=== PATIENT | male | born 1945 | race Caucasian/White ===

== ENCOUNTER → 2016-05-26 | Outpatient (CLI) | payer BC ==
[~2016-05-26] MED LIST: ATOR-22; ATV1 PO; CRS/10 PO; DYZ; FLUO20CA35; GABA-113; HYDR25TA4 PO; IBUP-1451 PO; LEVO150T22; LEVO150T9 PO; LISI-725; LISI-725 PO; ONDA4TAB10 SL; OXYC1CAP5 PO; TAMS0.4C38 PO
[2016-05-26 13:21] LABS: ALT/SGPT 48 U/L (12-78); AST/SGOT 19 U/L (15-37); BLOOD UREA NITROGEN 10 mg/dl (7-18); BUN/CREATININE RATIO 10.5 (10-20); CARBON DIOXIDE 33 mmol/L (21-32); CHLORIDE 102 mmol/L (98-107); CHOLESTEROL 173 mg/dl (0-200); CREATININE 0.99 mg/dl (0.60-1.40); GLUCOSE 86 mg/dl (70-99); POTASSIUM 3.6 mmol/L (3.5-5.1); SODIUM 142 mmol/L (136-145); TRIGLYCERIDES 229 mg/dl (0-150); VERY LOW DENSITY LIPOPROT CALC 46 mg/dl
[2016-05-26 13:29] LABS: ALB/GLOB RATIO 1.1 (0.9-2); ALKALINE PHOSPHATASE 69 U/L (45-117); CHOLESTEROL/HDL RATIO 3.5; HDL CHOLESTEROL 50 mg/dl; RHEUMATOID FACTOR < 10.0 U/mL (0-15)
[2016-05-26 13:45] LABS: CALCIUM 10.1 mg/dl (8.5-10.1)
[2016-05-26 14:30] LABS: BASO % 0.8 %; BASO ABS # 0.05 K/uL (0-0.2); COMPLETE YES; HEMATOCRIT 48.4 % (42-52); IG% 0.3 %; LYMPH ABS # 2.04 K/uL (1.2-3.4); MEAN CELL VOLUME 86.9 fL (80-100); MEAN CORPUSCULAR HGB CONC 34.5 g/dl (32-36); NEUT % 54.9 %; PLATELET COUNT 236 K/uL (130-400); RED BLOOD COUNT 5.57 M/uL (4.7-6.1); WHITE BLOOD COUNT 6.19 K/uL (4.8-10.8)
== END | disposition home or self-care (01) ==
LOC: C.LABSPEC 12:32
PROVIDERS: ATTEND Internal Medicine
DX: I10 Essential (primary) hypertension (principal); E78.5 Hyperlipidemia, unspecified; E03.9 Hypothyroidism, unspecified; M79.1 Myalgia; M25.50 Pain in unspecified joint

== ENCOUNTER → 2016-06-02 | Outpatient (CLI) | payer BC ==
[2016-06-04 18:07] LABS: ANTI-SS-A <1.0 NEG AI (<1.0 NEG); ANTI-SS-B <1.0 NEG AI (<1.0 NEG); Sm Antibody <1.0 NEG AI (<1.0 NEG)
== END | disposition home or self-care (01) ==
LOC: C.LABSPEC 12:23
PROVIDERS: ATTEND Internal Medicine
DX: M25.50 Pain in unspecified joint (principal); R76.0 Raised antibody titer

== ENCOUNTER → 2016-07-08 | Day surgery (SDC) | payer BC ==
[2016-07-01 14:32] VITALS: BMI 28.0
[~2016-07-08] VITALS: Ht 185.4 cm; Wt 97.7 kg
[~2016-07-08] MED LIST changes: -ATOR-22; +ATROPINE SULFATE 0.1 MG/ML 5ML SYR IV PRN; -ATV1 PO; -DYZ; +EpHEDrine SULFATE INJ 50 MG/ML AMP IV PRN; -FLUO20CA35; -GABA-113; -LEVO150T22; +LIDOCAINE HCL 2% 2 ML VIAL (20MG/ML) ONE; -LISI-725; +PROPOFOL IV EMULSION 10 MG/ML 20 ML VIAL IV ONE; +SODIUM CHLORIDE 0.9% 500ML 500 ML IV ONE
[2016-07-08 14:02] VITALS: Ht 185.4 cm; Wt 97.7 kg
--- NOTE | 2016-07-08 15:24 | Endo History and Physical ---
History & Physical Date of Service: July 08, 2016. Chief Complaint: hx polyps Referring Physician: Dr. Huerta History of Present Illness hx polyps Past Surgical History Hx Cardiac Surgery: No Hx Internal Defibrillator: No Hx Pacemaker: No Hx Abdominal Surgery: Yes (REINALDO) Hx of Implantable Prosthesis: No Hx Post-Op Nausea and Vomiting: No Hx Cancer Surgery: No Hx Thoracic Surgery: No Hx Orthopedic: Yes (LEFT ANKLE SURGERY, LEFT KNEE PATELLA REPAIR) Hx Urinary Tract Surgery: No Family History None Social History Smoking Status: Former Smoker Hx Substance Use: No Hx Alcohol Use: Yes (12 BOURB[employer] DRINKS WEEKLY) Allergies Coded Allergies: No Known Allergies (Verified , 07/08/16) Current Medications Reported Home Medications Medications Dose Route/Sig Max Daily Dose Days Date Category Crestor (Rosuvastatin Calcium) 10 Mg Tab 10 Mg PO QAM 07/01/16 Reported Hctz (Hydrochlorothiazide) 25 Mg Tab 0.5 Tab PO QAM 07/01/16 Reported Zestril (Lisinopril) 20 Mg Tab 10 Mg PO QAM 07/01/16 Reported Levothyroxine Sodium 150 Mcg Tab 1 Tab PO QAM 90 07/01/16 Reported Vital Signs Weight (Kilograms): 97.73 Height (Feet): 6 Height (Inches): 1 Date Time Temp Pulse Resp B/P Pulse Ox O2 Delivery O2 Flow Rate FiO2 07/08/16 14:08 37.3 98 20 168/107 97 Room Air Physical Exam AAOx3 Nl s1s2 Lungs CTA Abd soft NT/ND + BS - CCE Assessment and Plan colonoscopy
--- NOTE | 2016-07-08 16:23 | Discharge Instructions ---
Endoscopy Patient Instructions Date / Procedure(s) Performed July 08, 2016. Colonoscopy Allergy Information Coded Allergies: No Known Allergies (Verified , 07/08/16) Discharge Date / Findings July 08, 2016. poluyps removed. One by EMR Medication Instructions Restart Stopped Medication(s): Reported Home Medications Medications Dose Route/Sig Max Daily Dose Days Date Category Crestor (Rosuvastatin Calcium) 10 Mg Tab 10 Mg PO QAM 07/01/16 Reported Hctz (Hydrochlorothiazide) 25 Mg Tab 0.5 Tab PO QAM 07/01/16 Reported Zestril (Lisinopril) 20 Mg Tab 10 Mg PO QAM 07/01/16 Reported Levothyroxine Sodium 150 Mcg Tab 1 Tab PO QAM 90 07/01/16 Reported Reported Home Medications Medications Dose Route/Sig Max Daily Dose Days Date Category Crestor (Rosuvastatin Calcium) 10 Mg Tab 10 Mg PO QAM 07/01/16 Reported Hctz (Hydrochlorothiazide) 25 Mg Tab 0.5 Tab PO QAM 07/01/16 Reported Zestril (Lisinopril) 20 Mg Tab 10 Mg PO QAM 07/01/16 Reported Levothyroxine Sodium 150 Mcg Tab 1 Tab PO QAM 90 07/01/16 Reported Provider Instructions Activity Restrictions - No exercising or heavy lifting for 24 hours. - Do not drink alcohol the day of the procedure. - Do not drive a car or operate machinery until the day after the procedure. - Do not make any important decisions or sign important papers in 24 hours after the procedure. Following Day: - Return to full activity which may include returning to work/school. Diet Start your diet with liquids and light foods (jello, soup, juice, toast). Then eat your usual diet if not nauseated. Treatment For Common After Affects For mild abdominal pain, bloating, or excessive gas: - Rest - Eat lightly - Lie on right side Follow-Up Information Follow-up with Dr. Huerta as scheduled Anesthesia Information What You Should Know You have had a procedure that required some medicine to reduce anxiety and discomfort. This treatment is called moderate sedation. After receiving the treatment, you may be sleepy, but you will be able to breathe on your own. The effects of the treatment may last for several hours. Follow these instructions along with Activity/Diet recommendations noted above: * Do NOT do anything where dizziness or clumsiness would be dangerous. * Rest quietly at home today, then you can be up and about tomorrow. * Have a responsible person stay with you the rest of today. * You may have had an I.V. today. If so, you may take the dressing off later today. Recommendations Call your doctor if: * Trouble breathing * Continuous vomiting for more than 24 hours * Temperature above 101 degrees * Severe abdominal pain or bloating * Pain not relieved by pain medicine ordered * There is increased drainage or redness from any incision * A large amount of rectal bleeding greater than 2-3 tablespoons. (If you had a polyp/s removed or have hemorrhoids, a small amount of blood - from the rectum is to be expected.) * You have any unanswered questions or concerns. IN THE EVENT OF A SERIOUS EMERGENCY, GO TO THE NEAREST EMERGENCY ROOM Your discharge instructions were prepared by provider Shon Marsh. Patient Instructions Signature Page Jose Palma Patient (or Guardian) Signature/Date: I have read and understand the instructions given to me by my caregivers. Caregiver/RN/Doctor Signature/Date: The above-named patient and/or guardian has received patient instructions on this date. + Original Patient Signature Page (only) stays with chart. Please make copy for patient.
--- NOTE | 2016-07-08 16:42 | Anesthesiology Progress Note ---
Anesthesia Post Op Note Date & Time July 08, 2016 at 16:42 Vital Signs Pain Intensity: 0 Vital Signs Past 12 Hours Date Time Temp Pulse Resp B/P Pulse Ox O2 Delivery O2 Flow Rate FiO2 07/08/16 16:35 85 20 148/98 95 Room Air 07/08/16 16:20 85 20 133/76 96 Room Air 07/08/16 14:08 37.3 98 20 168/107 97 Room Air Notes Mental Status: alert / awake / arousable, participated in evaluation Pt Amnestic to Procedure: Yes Nausea / Vomiting: adequately controlled Pain: adequately controlled Airway Patency, RR, SpO2: stable & adequate BP & HR: stable & adequate Hydration State: stable & adequate Anesthetic Complications: no major complications apparent
[2016-07-08 16:50] VITALS: BP 158/99; PULSE 83; O2SAT 95
--- NOTE | 2016-07-08 17:14 | GI REPORT ---
Procedure Date: 07/08/2016 3:22 PM Procedure: Colonoscopy Indications: High risk colon cancer surveillance: Personal history of colonic polyps Medicines: Propofol per Anesthesia Complications: No immediate complications. Estimated blood loss: None. Estimated Blood Loss: Estimated blood loss was minimal. Procedure: Pre-Anesthesia Assessment: - Prior to the procedure, a History and Physical was performed, and patient medications and allergies were reviewed. The patient's tolerance of previous anesthesia was also reviewed. The risks and benefits of the procedure and the sedation options and risks were discussed with the patient. All questions were answered, and informed consent was obtained. Prior Anticoagulants: The patient has taken no previous anticoagulant or antiplatelet agents. ASA Grade Assessment: III - A patient with severe systemic disease. After reviewing the risks and benefits, the patient was deemed in satisfactory condition to undergo the procedure. After I obtained informed consent, the scope was passed under direct vision. Throughout the procedure, the patient's blood pressure, pulse, and oxygen saturations were monitored continuously. The Scope was introduced through the anus and advanced to the terminal ileum, with identification of the appendiceal orifice and IC valve. The colonoscopy was performed without difficulty. The patient tolerated the procedure well. The quality of the bowel preparation was good. Findings: The perianal and digital rectal examinations were normal. Pertinent negatives include normal sphincter tone, no palpable rectal lesions and no anal lesion or abnormality was detected. A 20 mm polyp was found in the proximal ascending colon. The polyp was sessile. Area was successfully injected with 7 mL saline for a lift polypectomy by EMR technique. The polyp was removed with a hot snare. Resection and retrieval were complete. To prevent bleeding after mucosal resection, four hemostatic clips were successfully placed (MR conditional). There was no bleeding during, and at the end, of the procedure. A 10 mm polyp was found in the mid ascending colon. The polyp was sessile. The polyp was removed with a hot snare. Resection and retrieval were complete. Estimated blood loss was minimal. Verification of patient identification for the specimen was done by the physician and machines technician using the patient's name and medical record number. The exam was otherwise without abnormality. The terminal ileum appeared normal. The retroflexed view of the distal rectum and anal verge was normal and showed no anal or rectal abnormalities. A few small-mouthed diverticula were found in the sigmoid colon. The terminal ileum appeared normal. Impression: - One 20 mm polyp in the proximal ascending colon, removed with a hot snare. Resected and retrieved. Injected. Clips (MR conditional) were placed. - One 10 mm polyp in the mid ascending colon, removed with a hot snare. Resected and retrieved. - The examination was otherwise normal. - The examined portion of the ileum was normal. - The distal rectum and anal verge are normal on retroflexion view. - Diverticulosis in the sigmoid colon. Recommendation: - Discharge patient to home (ambulatory). - Patient has a contact number available for emergencies. The signs and symptoms of potential delayed complications were discussed with the patient. Return to normal activities tomorrow. Written discharge instructions were provided to the patient. - Full liquid diet today. - Continue present medications. - Await pathology results. - Repeat colonoscopy in 6 months per protocol. - Return to referring physician as previously scheduled. MD Shon Garcia MD 07/08/2016 5:14:05 PM This report has been signed electronically. Note Initiated On: 07/08/2016 3:22 PM I attest to the content of the Intraoperative Record and orders documented therein, exceptions below
== END | disposition home or self-care (01) ==
LOC: C.GI 13:28
PROVIDERS: ATTEND Internal Medicine Gastroenterology
DX: Z12.11 Encounter for screening for malignant neoplasm of colon (principal); D12.2 Benign neoplasm of ascending colon; K57.30 Diverticulosis of large intestine without perforation or abscess without bleeding; Z86.010 Personal history of colon polyps; Z87.891 Personal history of nicotine dependence

== ENCOUNTER → 2016-11-26 | Outpatient (CLI) | payer BC ==
[~2016-11-26] MED LIST changes: -ATROPINE SULFATE 0.1 MG/ML 5ML SYR IV PRN; -EpHEDrine SULFATE INJ 50 MG/ML AMP IV PRN; -IBUP-1451 PO; -LIDOCAINE HCL 2% 2 ML VIAL (20MG/ML) ONE; -ONDA4TAB10 SL; -OXYC1CAP5 PO; -PROPOFOL IV EMULSION 10 MG/ML 20 ML VIAL IV ONE; -SODIUM CHLORIDE 0.9% 500ML 500 ML IV ONE; -TAMS0.4C38 PO
[2016-11-26 13:34] LABS: ALT/SGPT 36 U/L (12-78); AST/SGOT 16 U/L (15-37); BLOOD UREA NITROGEN 13 mg/dl (7-18); BUN/CREATININE RATIO 13.7 (10-20); CARBON DIOXIDE 30 mmol/L (21-32); CHLORIDE 102 mmol/L (98-107); CREATININE 0.97 mg/dl (0.60-1.40); GLUCOSE 94 mg/dl (70-99); POTASSIUM 3.5 mmol/L (3.5-5.1); SODIUM 141 mmol/L (136-145)
[2016-11-26 13:43] LABS: ESTIMATED AVERAGE GLUCOSE 114 mg/dl; HA1C FLAG Normal (Normal)
[2016-11-26 13:45] LABS: ALKALINE PHOSPHATASE 66 U/L (45-117); CHOLESTEROL 270 mg/dl (0-200); CHOLESTEROL/HDL RATIO 5.9; HDL CHOLESTEROL 46 mg/dl; TRIGLYCERIDES 305 mg/dl (0-150); VERY LOW DENSITY LIPOPROT CALC 61 mg/dl
== END | disposition home or self-care (01) ==
LOC: C.LABSPEC 12:34
PROVIDERS: ATTEND Internal Medicine
DX: I10 Essential (primary) hypertension (principal); E78.5 Hyperlipidemia, unspecified; R73.9 Hyperglycemia, unspecified; E03.9 Hypothyroidism, unspecified

== ENCOUNTER 2017-01-11 04:52 | Emergency (ER) | payer BC ==
[~2017-01-11] VITALS: Ht 193 cm; Wt 93.0 kg
[2017-01-11 05:01] VITALS: TEMP 36.3; Ht 193 cm; Wt 93.0 kg
[2017-01-11] MEDS ORDERED: SODIUM CHLORIDE 0.9% 1000ML 1,000 ML IV STA (05:06)
[2017-01-11] MEDS ORDERED: FENTANYL CITRATE INJ 50 MCG/1 ML 2 ML VIAL IV STA (05:10)
[2017-01-11] MEDS ORDERED: ONDANSETRON INJ 2 MG/ML 2 ML VIAL IV STA (05:10)
[2017-01-11] MEDS ORDERED: OPTIRAY 320 IV PRN (05:30)
[2017-01-11 05:33] LABS: ISTAT HEMOGLOBIN 17.7 g/dl (14.0-18.0); ISTAT IONIZED CALCIUM 1.14 mmol/l (1.12-1.32)
--- NOTE | 2017-01-11 05:34 | EMERGENCY ROOM VISIT NOTE ---
History Report prepared by Larry: Anselmo Soto Under the Supervision of: Dr. Nikolas Sanches M.D. First contact with patient: 05:04 Chief Complaint: ABDOMINAL PAIN Stated Complaint: ABDOMINAL PAIN History of Present Illness The patient is a 71 year old male who presents to the Emergency Room with complaints of constant right lower quadrant pain starting prior to arrival. He currently rates his discomfort as an 8/10 in severity. The patient states that he was asleep when he was woken up from this abdominal pain. He is nauseous, light headed, and he has the chills. The patient denies any testicular pain, fevers, cough, congestion, and vomiting. He states that he has never had any abdominal surgeries in the past, and he does not have a history of kidney stones. The patient has a history of COPD. The patient notes that he had a bowel movement last night before going to bed, and he was feeling well yesterday and had normal foods other than a pickled egg. He states that the pickled eggs were in a jar that originally had meat in it. Source of History: patient Onset: prior to arrival Position: abdomen (RLQ) Symptom Intensity: 8/10 Timing: constant Associated Symptoms: + chills, + nausea, No fevers, No cough, No vomiting Review of Systems See HPI for pertinent positives and negatives. A total of ten systems were reviewed and were otherwise negative. Past Medical & Surgical Medical Problems: (1) COPD (chronic obstructive pulmonary disease) Social History Smoking Status: Never Smoker Marital Status: Housing Status: lives with family Occupation Status: retired Current/Historical Medications Scheduled Hydrochlorothiazide (Hctz), 12.5 MG PO QAM Levothyroxine Sodium (Levothyroxine Sodium), 150 MCG PO QAM Lisinopril (Zestril), 10 MG PO QAM Ondasetron Odt (Zofran Odt), 4 MG SL Q6H Tamsulosin Hcl (Flomax), 0.4 MG PO DAILY Scheduled PRN Ibuprofen Tab (Motrin), 800 MG PO Q8H PRN for Pain Oxycodone Hcl (Oxycodone Hcl), 1 CAP PO QID PRN for Pain Allergies Coded Allergies: No Known Allergies (Verified , 01/11/17) Physical Exam Vital Signs Date Time Temp Pulse Resp B/P (MAP) Pulse Ox O2 Delivery O2 Flow Rate FiO2 01/11/17 07:55 81 18 171/104 94 Room Air 01/11/17 06:44 85 20 190/100 95 Room Air 01/11/17 06:03 80 18 168/93 92 Room Air 01/11/17 05:46 80 20 167/98 92 Room Air 01/11/17 05:30 74 20 184/107 96 Room Air 01/11/17 05:09 82 01/11/17 05:01 36.3 75 22 210/107 99 Room Air Physical Exam GENERAL: Awake, alert, in mild distress HENT: Dry cracked mucous membranes. Oropharynx otherwise unremarkable. Normocephalic, atraumatic. EYES: Normal conjunctiva. Sclera non-icteric. NECK: Supple. No nuchal rigidity. FROM. No JVD. RESPIRATORY: Clear to auscultation. CARDIAC: Regular rate, normal rhythm. Extremities warm and well perfused. Pulses equal. ABDOMEN: Mild RLQ tenderness. No peritoneal signs. Mildly distended but soft. No rebound or guarding. No masses. RECTAL: Deferred. MUSCULOSKELETAL: Chest examination reveals no tenderness. The back is symmetrical on inspection without obvious abnormality. There is no CVA tenderness to palpation. No joint edema. LOWER EXTREMITIES: Calves are equal size bilaterally and non-tender. No edema. No discoloration. NEURO: Normal sensorium. No sensory or motor deficits noted. SKIN: No rash or jaundice noted. Medical Decision & Procedures ER Provider Diagnostic Interpretation: STATRAD: Preliminary Findings Only See Final Report For Complete Findings CT ABDOMEN & PELVIS With Contrast: Status post cholecystectomy. Liver, spleen, pancreas, and adrenal glands are unremarkable. There is an obstructing 4.3 mm right UVJ stone causing mild upstream hydroureteronephrosis. There are additional bilateral nonobstructing stones. There are bilateral renal cysts. Normal appendix. No bowel obstruction. Scattered colonic diverticula without acute diverticulitis. Urinary bladder and prostate are unremarkable. No acute osseous findings. Radiologist: Elizabeth Burnette M.D. Laboratory Results 01/11/17 05:15 Red Blood Count 5.85, Mean Corpuscular Volume 88.5, Mean Corpuscular Hemoglobin 30.4, Mean Corpuscular Hemoglobin Concent 34.4, Mean Platelet Volume 11.2, Neutrophils (%) (Auto) 37.2, Lymphocytes (%) (Auto) 49.6, Monocytes (%) (Auto) 10.1, Eosinophils (%) (Auto) 2.1, Basophils (%) (Auto) 0.7, Neutrophils # (Auto ) 2.64, Lymphocytes # (Auto) 3.52, Monocytes # (Auto) 0.72, Eosinophils # (Auto ) 0.15, Basophils # (Auto) 0.05 01/11/17 05:15 Test 01/11/17 05:15 01/11/17 05:21 01/11/17 06:37 01/11/17 06:50 White Blood Count 7.10 K/uL (4.8-10.8) Red Blood Count 5.85 M/uL (4.7-6.1) Hemoglobin 17.8 g/dL (14.0-18.0) Hematocrit 51.8 % (42-52) Mean Corpuscular Volume 88.5 fL (80-100) Mean Corpuscular Hemoglobin 30.4 pg (25-34) Mean Corpuscular Hemoglobin Concent 34.4 g/dl (32-36) Platelet Count 246 K/uL (130-400) Mean Platelet Volume 11.2 fL (7.4-10.4) Neutrophils (%) (Auto) 37.2 % Lymphocytes (%) (Auto) 49.6 % Monocytes (%) (Auto) 10.1 % Eosinophils (%) (Auto) 2.1 % Basophils (%) (Auto) 0.7 % Neutrophils # (Auto) 2.64 K/uL (1.4-6.5) Lymphocytes # (Auto) 3.52 K/uL (1.2-3.4) Monocytes # (Auto) 0.72 K/uL (0.11-0.59) Eosinophils # (Auto) 0.15 K/uL (0-0.5) Basophils # (Auto) 0.05 K/uL (0-0.2) RDW Standard Deviation 43.2 fL (36.4-46.3) RDW Coefficient of Variation 13.3 % (11.5-14.5) Immature Granulocyte % (Auto) 0.3 % Immature Granulocyte # (Auto) 0.02 K/uL (0.00-0.02) Est Creatinine Clear Calc Drug Dose 76.6 ml/min Estimated GFR () 80.0 Estimated GFR (Non- 69.0 BUN/Creatinine Ratio 16.0 (10-20) Calcium Level 8.9 mg/dl (8.5-10.1) Total Bilirubin 0.7 mg/dl (0.2-1) Direct Bilirubin 0.1 mg/dl (0-0.2) Aspartate Amino Transf (AST/SGOT) 19 U/L (15-37) Alanine Aminotransferase (ALT/SGPT) 40 U/L (12-78) Alkaline Phosphatase 68 U/L (45-117) Troponin I < 0.015 ng/ml (0-0.045) Total Protein 8.1 gm/dl (6.4-8.2) Albumin 4.0 gm/dl (3.4-5.0) Lipase 182 U/L (73-393) Bedside Hemoglobin 17.7 g/dl (14.0-18.0) Bedside Hematocrit 52 % (42-52) Bedside Sodium 143 mEq/L (135-144) Bedside Potassium 3.1 mEq/L (3.3-5.0) Bedside Chloride 104 mEq/L (101-112) Bedside Total CO2 25 mEq/l (24-31) Anion Gap 18.0 mmol/L (16-25) Bedside Blood Urea Nitrogen 18 mg/dl (7-18) Bedside Creatinine 1.0 mg/dl (0.6-1.3) Bedside Glucose (other) 139 mg/dl (70-99) Bedside Ionized Calcium (Jenelle) 1.14 mmol/l (1.12-1.32) Lactic Acid Level 1.7 mmol/L (0.4-2.0) Urine Color ROMAINE Urine Appearance CLOUDY (CLEAR) Urine pH 5.0 (4.5-7.5) Urine Specific Godley > 1.045 (1.000-1.030) Urine Protein TRACE (NEG) Urine Glucose (UA) NEG (NEG) Urine Ketones NEG (NEG) Urine Occult Blood 3+ (NEG) Urine Nitrite NEG (NEG) Urine Bilirubin NEG (NEG) Urine Urobilinogen NEG (NEG) Urine Leukocyte Esterase TRACE (NEG) Urine WBC (Auto) 1-5 /hpf (0-5) Urine RBC (Auto) >30 /hpf (0-4) Urine Hyaline Casts (Auto) 1-5 /lpf (0-5) Urine Epithelial Cells (Auto) 5-10 /lpf (0-5) Urine Bacteria (Auto) NEG (NEG) Laboratory results reviewed by me Medications Administered Medications (Trade) Dose Ordered Sig/Valerie Route Start Time Stop Time Status Last Admin Dose Admin Sodium Chloride 1,000 ml @ 999 mls/hr Q1H1M STAT IV 01/11/17 05:06 01/11/17 06:06 DC 01/11/17 05:25 999 MLS/HR Fentanyl Citrate (Fentanyl Inj) 50 mcg NOW STAT IV 01/11/17 05:10 01/11/17 05:12 DC 01/11/17 05:26 50 MCG Ondansetron HCl (Zofran Inj) 4 mg NOW STAT IV 01/11/17 05:10 01/11/17 05:12 DC 01/11/17 05:26 4 MG ECG Indication: abdominal pain Rate (beats per minute): 76 Rhythm: normal sinus Findings: no acute ischemic change, other (normal axis) ED Course 0504: The patient was evaluated in room B5. A complete history and physical exam was performed. Medical Decision I reviewed the patient's past medical history, medications, and the nursing notes as described above. Differential diagnoses include: appendicitis, bowel obstruction, colitis, gastroenteritis, gastritis, biliary etiology, AAA The patient is a 71-year-old gentleman who presents emergency department with acute onset right lower quadrant pain and nausea that woke him from sleep per history of present illness. The patient is mild distress, afebrile with stable vital signs. His mild abdominal bloating but abdomen is soft. He has mild right lower quadrant tenderness but no peritoneal signs. CT shows a 4.3 mm right UVJ stone with mild hydroureter nephrosis, likely explanation for the patient's symptoms. WBC, Cr, Lactate wnl. UA negative for infection. Patient feeling improved with resolved symptoms after IVF and analgesia. Findings and plan for follow-up reviewed with patient. Patient agreeable and d/c'd per discharge instructions. Medication Reconcilliation Current Medication List: was personally reviewed by me Blood Pressure Screening Patient's blood pressure: Elevated blood pressure Impression Primary Impression: Ureteral stone with hydronephrosis Scribe Attestation The scribe's documentation has been prepared under my direction and personally reviewed by me in its entirety. I confirm that the note above accurately reflects all work, treatment, procedures, and medical decision making performed by me. Departure Information Prescriptions Tamsulosin Hcl (FLOMAX) 0.4 Mg Cap 0.4 MG PO DAILY, #10 CAP Prov: Nikloas Sanches M.D. 01/11/17 Ondasetron Odt (ZOFRAN ODT) 4 Mg Tab 4 MG SL Q6H for Nausea, #6 TAB Prov: Nikolas Sanches M.D. 01/11/17 Oxycodone Hcl (OXYCODONE HCL) 5 Mg Cap 1 CAP PO QID Y for Pain, #5 CAP Prov: Nikolas Sanches M.D. 01/11/17 Ibuprofen Tab (MOTRIN) 800 Mg Tab 800 MG PO Q8H Y for Pain, #21 TAB Prov: Nikolas Sanches M.D. 01/11/17 Referrals Olegario Ibarra M.D. (PCP) Kalin Overton M.D. Patient Instructions Kidney Stones, My [facility] Additional Instructions Please follow up within the next week with your primary care physician and urology if symptoms continue for re-evaluation as well as to discuss the incidental findings on your CT scan (copied below). You were found to have an obstructing kidney stone that is 4.3mm, which has a good likelihood to pass on its own. Otherwise, your exam, EKG, CT scan, and lab results did not show signs of an emergent condition at this time. Ibuprofen for pain as needed. Oxycodone for breakthrough pain as needed. Zofran as needed for nausea. Flomax daily to help promote kidney stone passage. Return to the emergency department for worsening symptoms as described in the accompanying instructions. ABDOMEN AND PELVIS CT WITH IV CONTRAST CT DOSE: 652.34 mGy.cm HISTORY: Right lower quadrant abdominal pain. TECHNIQUE: Multiaxial CT images of the abdomen and pelvis were performed following the use of intravenous contrast. A dose lowering technique was utilized adhering to the principles of ALARA. COMPARISON STUDY: None. FINDINGS: A 4 mm subpleural nodule within the lingula likely represents atelectasis/scarring. Moderate emphysema. Calcified granuloma within the left lower lobe. There is 1.3 cm nodule within the left lower lobe. This may contain macroscopic fat. Poststernotomy changes. Cholecystectomy. The liver, spleen, adrenal glands, and pancreas are unremarkable. A few small bilateral renal hypodense lesions. Dominant exophytic lesion within the right kidney measures 1.6 cm and likely represents a cyst. Remaining lesions are subcentimeter in size and too small to characterize. Bilateral nephrolithiasis. Mild right hydronephrosis secondary to an obstructing stone at the right ureterovesical junction. This measures 4 mm. Bladder is not well-distended but appears unremarkable. Colonic diverticulosis. No bowel wall thickening or obstruction. Normal appendix. IMPRESSION: 1. A 4 mm obstructing stone within the right ureterovesical junction resulting and mild right hydronephrosis. 2. Bilateral nephrolithiasis. 3. Colonic diverticulosis. 4. No bowel wall thickening or obstruction. 5. Normal appendix. 6. A 13 mm round nodule within the left lower lobe. This appears to contain fat and likely represents a hamartoma. Recommend dedicated [address] follow-up to ensure stability.
[2017-01-11] MEDS ORDERED: KETOROLAC TROMETHAMINE 30 MG/ML VIAL IV STA (06:40)
[2017-01-11 06:42] LABS: BASO % 0.7 %; BASO ABS # 0.05 K/uL (0-0.2); COMPLETE YES; EOS % 2.1 %; HEMATOCRIT 51.8 % (42-52); IG% 0.3 %; LYMPH % 49.6 %; LYMPH ABS # 3.52 K/uL (1.2-3.4); MEAN CELL VOLUME 88.5 fL (80-100); MEAN CORPUSCULAR HEMOGLOBIN 30.4 pg (25-34); MEAN CORPUSCULAR HGB CONC 34.4 g/dl (32-36); MEAN PLATELET VOLUME 11.2 fL (7.4-10.4); MONO % 10.1 %; NEUT % 37.2 %; PLATELET COUNT 246 K/uL (130-400); RED BLOOD COUNT 5.85 M/uL (4.7-6.1)
[2017-01-11 07:01] LABS: ALT/SGPT 40 U/L (12-78); AST/SGOT 19 U/L (15-37); BLOOD UREA NITROGEN 17 mg/dl (7-18); CALCIUM 8.9 mg/dl (8.5-10.1); CARBON DIOXIDE 27 mmol/L (21-32); CHLORIDE 104 mmol/L (98-107); CREATININE 1.07 mg/dl (0.60-1.40); GLUCOSE 134 mg/dl (70-99); SODIUM 139 mmol/L (136-145)
[2017-01-11 07:06] LABS: ALKALINE PHOSPHATASE 68 U/L (45-117)
[2017-01-11 07:12] LABS: URINE APPEARANCE CLOUDY (CLEAR); URINE BILIRUBIN NEG (NEG); URINE NITRITE NEG (NEG); URINE SPECIFIC GRAVITY > 1.045 (1.000-1.030); UROBILINOGEN NEG (NEG); ZZUR CULT IF INDIC CLEAN CATCH NO
[2017-01-11 07:13] LABS: MANUAL MICROSCOPIC REQUIRED? NO; REVIEW REQ? NO; URINE COLOR AMBER
--- NOTE | 2017-01-11 07:22 | DIAGNOSTIC IMAGING REPORT ---
ABDOMEN AND PELVIS CT WITH IV CONTRAST CT DOSE: 652.34 mGy.cm HISTORY: Right lower quadrant abdominal pain. TECHNIQUE: Multiaxial CT images of the abdomen and pelvis were performed following the use of intravenous contrast. A dose lowering technique was utilized adhering to the principles of ALARA. COMPARISON STUDY: None. FINDINGS: A 4 mm subpleural nodule within the lingula likely represents atelectasis/scarring. Moderate emphysema. Calcified granuloma within the left lower lobe. There is 1.3 cm nodule within the left lower lobe. This may contain macroscopic fat. Poststernotomy changes. Cholecystectomy. The liver, spleen, adrenal glands, and pancreas are unremarkable. A few small bilateral renal hypodense lesions. Dominant exophytic lesion within the right kidney measures 1.6 cm and likely represents a cyst. Remaining lesions are subcentimeter in size and too small to characterize. Bilateral nephrolithiasis. Mild right hydronephrosis secondary to an obstructing stone at the right ureterovesical junction. This measures 4 mm. Bladder is not well-distended but appears unremarkable. Colonic diverticulosis. No bowel wall thickening or obstruction. Normal appendix. IMPRESSION: 1. A 4 mm obstructing stone within the right ureterovesical junction resulting and mild right hydronephrosis. 2. Bilateral nephrolithiasis. 3. Colonic diverticulosis. 4. No bowel wall thickening or obstruction. 5. Normal appendix. 6. A 13 mm round nodule within the left lower lobe. This appears to contain fat and likely represents a hamartoma. Recommend dedicated [address] follow-up to ensure stability. Electronically signed by: Kain Ferreira M.D. 01/11/2017 7:21 AM Dictated Date/Time: 01/11/2017 7:14 AM
[2017-01-11] MEDS ORDERED: TAMS0.4C38 PO (07:46)
[2017-01-11] MEDS ORDERED: ONDA4TAB10 SL (07:46)
[2017-01-11] MEDS ORDERED: OXYC1CAP5 PO (07:46)
[2017-01-11] MEDS ORDERED: IBUP-1451 PO (07:46)
[2017-01-11 07:55] VITALS: BP 171/104; PULSE 81; O2SAT 94
== END 2017-01-11 08:13 | disposition home or self-care (01) ==
LOC: C.EDB 04:53
DX: N20.1 Calculus of ureter (principal); N13.30 Unspecified hydronephrosis; J44.9 Chronic obstructive pulmonary disease, unspecified; R42 Dizziness and giddiness

== ENCOUNTER → 2017-06-01 | Outpatient (CLI) | payer BC ==
[~2017-06-01] MED LIST changes: -CRS/10 PO; +IBUP-1451 PO; +ONDA4TAB10 SL; +OXYC1CAP5 PO
--- NOTE | 2017-06-01 10:11 | DIAGNOSTIC IMAGING REPORT ---
ABDOMINAL ULTRASOUND COMPLETE HISTORY: dyspepsia.. COMPARISON: Abdomen and pelvis CT 01/11/2017. FINDINGS: Pancreas: Obscured by overlying bowel gas. Liver: Unremarkable. Gallbladder: The gallbladder is surgically absent. CBD: 1 cm. Kidneys: No hydronephrosis. There are few small stones and a few small cysts with the largest in the right lower pole measuring 2.1 cm. Spleen: Normal in size. Aorta: Only seen distally but is normal in caliber. IVC: Patent. IMPRESSION: 1. Bilateral nephrolithiasis. No hydronephrosis. 2. Cholecystectomy. This likely accounts for the common bile duct dilatation of 1 cm. Electronically signed by: Kain Ferreira M.D. 06/01/2017 10:10 AM Dictated Date/Time: 06/01/2017 10:06 AM
== END | disposition home or self-care (01) ==
LOC: C.ULTRBC 08:39
PROVIDERS: ATTEND Internal Medicine Gastroenterology
DX: R10.13 Epigastric pain (principal); N20.0 Calculus of kidney; Z90.49 Acquired absence of other specified parts of digestive tract

== ENCOUNTER → 2017-06-20 | Day surgery (SDC) | payer BC ==
[2017-06-08 14:09] VITALS: BMI 29.0
[~2017-06-20] VITALS: Ht 182.9 cm; Wt 98.2 kg
[~2017-06-20] MED LIST changes: -IBUP-1451 PO; +LIDOCAINE HCL 2% 2 ML VIAL (20MG/ML) ONE; -ONDA4TAB10 SL; -OXYC1CAP5 PO; +PROPOFOL IV EMULSION 10 MG/ML 20 ML VIAL ONE
[2017-06-20 14:02] VITALS: Ht 182.9 cm; Wt 98.2 kg
--- NOTE | 2017-06-20 14:28 | Endo History and Physical ---
History & Physical Date of Service: June 20, 2017. Chief Complaint: HISTORY OF POLYPS Referring Physician: DR. AUDREY LOBATO History of Present Illness For colonoscopy Past Surgical History Hx Cardiac Surgery: No Hx Internal Defibrillator: No Hx Pacemaker: No Hx Abdominal Surgery: Yes (REINALDO, APPY) Hx of Implantable Prosthesis: No Hx Post-Op Nausea and Vomiting: No Hx Cancer Surgery: No Hx Thoracic Surgery: No Hx Orthopedic: Yes (LEFT ANKLE SURGERY, LEFT KNEE PATELLA REPAIR) Hx Urinary Tract Surgery: No Family History None Social History Smoking Status: Former Smoker Hx Substance Use: No Hx Alcohol Use: Yes (ONCE A MONTH) Allergies Coded Allergies: Adhesives (Verified Allergy, Mild, RASH, 06/20/17) Current Medications Reported Home Medications Medications Dose Route/Sig Max Daily Dose Days Date Category Hctz (Hydrochlorothiazide) 25 Mg Tab 12.5 Mg PO QAM 07/01/16 Reported Zestril (Lisinopril) 20 Mg Tab 10 Mg PO QAM 07/01/16 Reported Levothyroxine Sodium 150 Mcg Tab 150 Mcg PO QAM 07/01/16 Reported Vital Signs Weight (Kilograms): 98.18 Height (Feet): 6 Height (Inches): 0 Date Time Temp Pulse Resp B/P (MAP) Pulse Ox O2 Delivery O2 Flow Rate FiO2 06/20/17 14:17 36.7 93 20 190/111 (137) 98 Room Air Physical Exam General Appearance: WD/WN Respiratory/Chest: Respiratory effort: no dyspnea Cardiovascular: Heart Auscultation: RRR Abdomen: Inspection & Palpation: soft Assessment and Plan Hx polyps for colonoscopy
--- NOTE | 2017-06-20 14:55 | Discharge Instructions ---
Endoscopy Patient Instructions Date / Procedure(s) Performed June 20, 2017. Colonoscopy Allergy Information Coded Allergies: Adhesives (Verified Allergy, Mild, RASH, 06/20/17) Discharge Date / Findings June 20, 2017. Diverticulosis, hemorrhoids Medication Instructions Restart Stopped Medication(s): resume meds Reported Home Medications Medications Dose Route/Sig Max Daily Dose Days Date Category Hctz (Hydrochlorothiazide) 25 Mg Tab 12.5 Mg PO QAM 07/01/16 Reported Zestril (Lisinopril) 20 Mg Tab 10 Mg PO QAM 07/01/16 Reported Levothyroxine Sodium 150 Mcg Tab 150 Mcg PO QAM 07/01/16 Reported Provider Instructions Activity Restrictions - No exercising or heavy lifting for 24 hours. - Do not drink alcohol the day of the procedure. - Do not drive a car or operate machinery until the day after the procedure. - Do not make any important decisions or sign important papers in 24 hours after the procedure. Following Day: - Return to full activity which may include returning to work/school. Diet Start your diet with liquids and light foods (jello, soup, juice, toast). Then eat your usual diet if not nauseated. Treatment For Common After Affects For mild abdominal pain, bloating, or excessive gas: - Rest - Eat lightly - Lie on right side Follow-Up Information Follow-up with DR. AUDREY LOBATO as scheduled Anesthesia Information What You Should Know You have had a procedure that required some medicine to reduce anxiety and discomfort. This treatment is called moderate sedation. After receiving the treatment, you may be sleepy, but you will be able to breathe on your own. The effects of the treatment may last for several hours. Follow these instructions along with Activity/Diet recommendations noted above: * Do NOT do anything where dizziness or clumsiness would be dangerous. * Rest quietly at home today, then you can be up and about tomorrow. * Have a responsible person stay with you the rest of today. * You may have had an I.V. today. If so, you may take the dressing off later today. Recommendations Call your doctor if: * Trouble breathing * Continuous vomiting for more than 24 hours * Temperature above 101 degrees * Severe abdominal pain or bloating * Pain not relieved by pain medicine ordered * There is increased drainage or redness from any incision * A large amount of rectal bleeding greater than 2-3 tablespoons. (If you had a polyp/s removed or have hemorrhoids, a small amount of blood - from the rectum is to be expected.) * You have any unanswered questions or concerns. IN THE EVENT OF A SERIOUS EMERGENCY, GO TO THE NEAREST EMERGENCY ROOM Your discharge instructions were prepared by provider Nayan Hooker. Patient Instructions Signature Page Jose Palma Patient (or Guardian) Signature/Date: I have read and understand the instructions given to me by my caregivers. Caregiver/RN/Doctor Signature/Date: The above-named patient and/or guardian has received patient instructions on this date. + Original Patient Signature Page (only) stays with chart. Please make copy for patient.
[2017-06-20 15:26] VITALS: BP 172/101; PULSE 73; O2SAT 98
--- NOTE | 2017-06-20 15:28 | Anesthesiology Progress Note ---
Anesthesia Post Op Note Date & Time June 20, 2017 at 15:27 Vital Signs Pain Intensity: 0 Vital Signs Past 12 Hours Date Time Temp Pulse Resp B/P (MAP) Pulse Ox O2 Delivery O2 Flow Rate FiO2 06/20/17 15:11 74 20 151/95 (113) 99 Room Air 06/20/17 14:56 79 20 144/97 (113) 98 Room Air 06/20/17 14:17 36.7 93 20 190/111 (137) 98 Room Air Notes Mental Status: alert / awake / arousable, participated in evaluation Pt Amnestic to Procedure: Yes Nausea / Vomiting: adequately controlled Pain: adequately controlled Airway Patency, RR, SpO2: stable & adequate BP & HR: stable & adequate Hydration State: stable & adequate Anesthetic Complications: no major complications apparent
--- NOTE | 2017-06-20 15:47 | GI REPORT ---
Patient Name: Jose Palma Procedure Date: 06/20/2017 2:32 PM Date of : 1945 Admit Type: Outpatient Age: 72 Gender: Male Attending MD: Nayan Hooker MD Procedure: Colonoscopy Providers: Nayan Hooker MD Referring MD: Olegario Jones Indications: Personal history of colonic polyps Medicines: Propofol total dose 210 mg IV, Lidocaine 40 mg IV Complications: No immediate complications. Estimated Blood Loss: Estimated blood loss: none. Procedure: Pre-Anesthesia Assessment: - Prior to the procedure, a History and Physical was performed, and patient medications, allergies and sensitivities were reviewed. The patient's tolerance of previous anesthesia was reviewed. - The risks and benefits of the procedure and the sedation options and risks were discussed with the patient. All questions were answered and informed consent was obtained. After I obtained informed consent, the scope was passed under direct vision. Throughout the procedure, the patient's blood pressure, pulse, and oxygen saturations were monitored continuously. The scope was introduced through the anus and advanced to the cecum, identified by appendiceal orifice and ileocecal valve. The colonoscopy was performed without difficulty. The patient tolerated the procedure well. The quality of the bowel preparation was good. Findings: A few diverticula were found in the sigmoid colon. Non-bleeding internal hemorrhoids were found during endoscopy. The hemorrhoids were mild. Impression: - Diverticulosis in the sigmoid colon. - Non-bleeding internal hemorrhoids. - No specimens collected. Recommendation: - Discharge patient to home (ambulatory). - Continue present medications. - Repeat colonoscopy in 5 years for surveillance. - Return to primary care physician PRN. Nayan Hooker M.D. Nayan Hooker MD 06/20/2017 3:10:39 PM This report has been signed electronically. Note Initiated On: 06/20/2017 2:32 PM Number of Addenda: 0 I attest to the content of the Intraoperative Record and orders documented therein, exceptions below {[id number]}
== END | disposition home or self-care (01) ==
LOC: C.GI 13:46
PROVIDERS: ATTEND Internal Medicine Gastroenterology
DX: Z12.11 Encounter for screening for malignant neoplasm of colon (principal); Z86.010 Personal history of colon polyps; K57.30 Diverticulosis of large intestine without perforation or abscess without bleeding; K64.8 Other hemorrhoids; J44.9 Chronic obstructive pulmonary disease, unspecified; K21.9 Gastro-esophageal reflux disease without esophagitis; I10 Essential (primary) hypertension; M19.90 Unspecified osteoarthritis, unspecified site; E03.9 Hypothyroidism, unspecified; F41.0 Panic disorder [episodic paroxysmal anxiety]; Z90.49 Acquired absence of other specified parts of digestive tract; Z90.89 Acquired absence of other organs; Z87.891 Personal history of nicotine dependence

== ENCOUNTER 2023-06-13 11:56 | Inpatient (IN) ==
--- NOTE | 2023-06-13 12:30 | Emergency Department Note ---
Impression & Plan Pulmonary embolism, MOORE (dyspnea on exertion), Hypokalemia, Anemia ED Provider Note NAME: ALEXANDRA ABARCA AGE: 78 SEX: M : 1945 ARRIVES VIA: Walk-In INFORMANT: Patient, ED PROVIDER(S): Evens Mccray DO CHIEF COMPLAINT: Shortness of breath HPI: The patient is a 78-year-old male who presented to the emergency department for evaluation of difficulty breathing. The patient has a history of lung cancer. Has been having problems with exertional dyspnea over the course of the last few weeks. The patient denies having any hemoptysis. He denies having any rectal bleeding. The patient had a CAT scan of the chest today to assess for ongoing disease and was sent to the emergency department because of pulmonary embolism. The patient does not currently take any blood thinners. ROS: See above HPI for pertinent positives & negatives. A total of 10 systems reviewed and were otherwise negative. PAST MEDICAL HISTORY: See Below PAST SURGICAL HISTORY: See Below FAMILY HISTORY: See Below SOCIAL HISTORY: See Below HOME MEDICATIONS: See Below ALLERGIES: See Below VITALS: See Below PHYSICAL EXAMINATION: GENERAL: The patient is awake and alert. The patient is somewhat anxious appearing. EYES: The conjunctivae are clear. The pupils are round and reactive. EARS, NOSE, MOUTH AND THROAT: The nose is without any evidence of any deformity. NECK: The neck is nontender and supple. RESPIRATORY: Diminished breath sounds are noted throughout. Conversational dyspnea is noted. CARDIOVASCULAR: Regular rate and rhythm noted there no murmurs rubs or gallops normal S1 normal S2. GASTROINTESTINAL: The abdomen is soft. Abdomen is nontender. MUSCULOSKELETAL/EXTREMITIES: There is no evidence of gross deformity full range of motion is noted in the hips and shoulders. SKIN: Bilateral pedal edema was noted. NEUROLOGIC: Patient is awake alert and oriented x3 MEDICAL DECISION MAKING: The patient is a 78-year-old male who presented to the emergency department for evaluation of difficulty breathing. The patient has been noticing difficulty breathing over the course the last 2 weeks. He does have a history of lung cancer. He went to see his primary pulmonary physician and was evaluated. He was felt to be having more shortness of breath than his baseline. For this reason he was sent for a CT. The patient's CAT scan appear to be consistent with bilateral venous thromboembolic disease. The patient was sent to the emergency department for further evaluation. On my evaluation the patient's vital signs were reassuring. He had no hypoxia hypotension or tachycardia but with any exertion the patient would become very short of breath. I discussed the patient's laboratory results with him. He was found to have an elevated troponin. He also has significant clot burden. For this reason he was started on IV heparin. I discussed his condition with the on-call [facility] Hospitalist. They have agreed to evaluate the patient in the emergency department for further management and disposition. Triage Nursing notes reviewed. Prior medical records reviewed Vital Signs: reviewed and remarkable for no significant abnormalities Differential diagnosis: Reactive airway disease, pneumonia, pneumothorax, COPD, CHF, infections, cardiac ischemia, pulmonary embolism, musculoskeletal, gastrointestinal, as well as other pathologies. ER treatment provided: See below Diagnostics interpreted by me: ECG: EKG was obtained in the emergency department. My interpretation is sinus rhythm at 97 bpm. PVCs as well as PACs were noted. Nonspecific ST segment abnormalities noted. This was compared to a tracing from March 18, 2023. Some ST segment abnormalities are new compared to the previous tracing. Cardiac Monitoring: An order was placed for continuous cardiac monitoring. The monitor shows a rate of 87 bpm with sinus rhythm. Laboratory studies: As stated above and show below. Imaging studies: See below. I reviewed the patient's CT that was done prior to coming to the emergency department. Consultation(s): I discussed this case with Dr. Avila who is on-call for the [facility] Hospitalist group. ED COURSE: Procedures: none Critical Care: I have personally spent greater than 45 minutes of critical care time in the direct management of this patient. This includes bedside care, interpretation of diagnostic studies, and testing, discussion with consultants, patient, and family members, and other required patient management activities. This 45 minutes is in excess of all separately billable procedures. Past Med/Surg History Medical History History of pneumothorax 20 years ago Lung cancer chemo 03/24/2023, Cancer [place] next dose 04/12/23 History of kidney stones passed on own Anxiety Hyperlipemia Psoriatic arthritis Glaucoma Hypertension Hypothyroidism COPD (chronic obstructive pulmonary disease) Surgical History Port-A-Cath in place (04/07/23) Insertion Access Port Left Chest with Fluoroscopy(Left) - David Hicks MD, FACS History of bronchoscopy 02/18/2023 History of colonoscopy History of surgery on extremity leg History of surgery History of median sternotomy, removal of thymus gland History of cholecystectomy Family History Unknown Hypertension Father Urinary bladder cancer Other No family history of bleeding disorder Social History Smoking Status: Never smoker Tobacco Type: Cigarettes Age Started Using Tobacco: 19; Age Quit Using Tobacco: 68; packs per day: 2; Cigarettes Per Day: 2015; Second Hand Exposure: No; Do You Dip or Chew Tobacco: No; Hx Alcohol Use: No Hx Substance Use: No Preferred Language: Kazakh Communication Ability: Effective Ballet Dancer Required: No Beliefs That Will Affect Care: None marital status: Current Living Situation: Spouse current occupational status: retired How many Children do You have: 4 Feels Safe at Home: Yes Diet: regular during the past year weight has: remained stable Assistive Devices: None Allergies Allergies Allergy/AdvReac Type Severity Reaction Status Date / Time adhesive Allergy Mild RASH Verified 06/08/23 12:45 No Known Drug Allergies Allergy Verified 06/08/23 12:45 Home Meds Home Medications Medication Instructions Recorded Confirmed levothyroxine 150 mcg tablet 150 mcg PO QAM 11/07/18 06/13/23 hydrochlorothiazide 12.5 mg tablet 25 mg PO QAM 11/27/18 06/13/23 metoprolol tartrate 25 mg tablet 25 mg PO BID 11/27/18 06/13/23 aflibercept 2 mg/0.05 mL 2 mg intravitreal UD 03/16/23 06/13/23 intravitreal solution for injection (Eylea) folic acid 1 mg tablet 1 mg PO QAM 03/16/23 06/13/23 latanoprost 0.005 % eye drops 1 drp ophthalmic (eye) DAILY 03/16/23 06/13/23 lisinopril 10 mg tablet 10 mg PO QAM 03/16/23 06/13/23 lorazepam 0.5 mg tablet 0.5 mg PO TID PRN prn 03/16/23 06/13/23 methotrexate sodium 2.5 mg tablet 12.5 mg PO QAM 03/16/23 06/13/23 fluticasone fur. 100 mcg-umeclid 1 inh inhalation DAILY 03/30/23 06/13/23 62.5 mcg-vilant 25 mcg inhalat.powder (Trelegy Ellipta) ondansetron HCl 8 mg tablet 8 mg PO Q8H PRN Nausea 04/18/23 06/13/23 prochlorperazine maleate 10 mg 10 mg PO Q6H PRN Nausea 04/18/23 06/13/23 tablet (Compazine) Magic Mouthwash 300 mL mouthwash 5 ml mucous membrane DAILY #300 mL 05/16/23 06/13/23 Previous Rx's Medication Instructions Recorded azithromycin 250 mg tablet 250 mg PO MOWEFR 30 days #18 tabs 04/14/23 Oxygen Home E0424 #1 ea 06/13/23 Results & Data (ED) Vital Signs Vital Signs - 24 hr 06/13/23 12:06 06/13/23 12:30 06/13/23 12:30 Temperature 36.8 C Temperature Source Temporal Artery Scan Pulse Rate 85 90 Pulse Rate from SpO2 Sensor 87 Respiratory Rate 22 15 Blood Pressure 111/66 132/77 Blood Pressure Mean 81 87 Pulse Oximetry 92 93 Oxygen Delivery Method Sepsis Recent Fever Within 48 Hours No Sepsis New/Unexplained Change in Mental Status No Sepsis Action Taken by Nursing No Action Required 06/13/23 12:31 06/13/23 12:52 06/13/23 13:00 Temperature Temperature Source Pulse Rate 87 Pulse Rate from SpO2 Sensor Respiratory Rate Blood Pressure 123/68 Blood Pressure Mean 101 Pulse Oximetry 92 Oxygen Delivery Method Room Air Sepsis Recent Fever Within 48 Hours Sepsis New/Unexplained Change in Mental Status Sepsis Action Taken by Nursing 06/13/23 13:00 06/13/23 14:00 06/13/23 14:00 Temperature Temperature Source Pulse Rate 85 87 Pulse Rate from SpO2 Sensor 77 86 Respiratory Rate 19 18 Blood Pressure 121/78 Blood Pressure Mean 97 Pulse Oximetry 93 93 Oxygen Delivery Method Sepsis Recent Fever Within 48 Hours Sepsis New/Unexplained Change in Mental Status Sepsis Action Taken by Long Term Medications Current Medication List: was personally reviewed by me Laboratory Data Attestation: I reviewed the patient's lab results. 06/13/23 12:17 06/13/23 12:17 Lab Results 06/13/23 Range/Units 12:17 WBC 5.54 (4.8-10.8) K/ul RBC 3.19 L (4.70-6.10) M/uL Hgb 10.3 L (14.0-18.0) g/dl Hct 30.7 L (42.0-52.0) % MCV 96.2 (80.0-100.0) fL MCH 32.3 (25.0-34.0) pg MCHC 33.6 (32.0-36.0) g/dL RDW Std Deviation 68.0 H (36.4-46.3) fL RDW Coeff of Cathi 20.8 H (11.5-14.5) % Plt Count 278 (130-400) K/uL MPV 10.9 (9.4-12.4) fL Immature Gran % (Auto) 1.1 % Neut % (Auto) 79.8 % Lymph % (Auto) 7.6 % Stan[place] % (Auto) 10.8 % Eos % (Auto) 0.0 % Baso % (Auto) 0.7 % Neut # (Auto) 4.42 (1.40-6.50) K/uL Lymph # (Auto) 0.42 L (1.20-3.40) K/uL Stanly # (Auto) 0.60 H (0.11-0.59) K/uL Eos # (Auto) 0.00 (0.00-0.50) K/uL Baso # (Auto) 0.04 (0.00-0.20) K/uL Immature Gran # (Auto) 0.06 (0.01-0.20) K/uL Absolute Nucleated RBC 0.02 (0.00-0.12) K/uL Nucleated RBC % (auto) 0.4 % Polychromasia 1+ Anisocytosis Present Tear Drop Cells 1+ PT 12.1 H (9.0-12.0) Seconds INR 1.1 (0.9-1.1) APTT 36 H (21-31) Seconds PTT Ratio 1.3 Sodium 138 (136-145) mmol/L Potassium 3.2 L (3.5-5.1) mmol/L Chloride 103 (98-107) mmol/L Carbon Dioxide 26 (21-32) mmol/L Anion Gap 9 (3-11) BUN 10 (6-23) mg/dl Creatinine 0.94 (0.6-1.4) mg/dl Est Cr Clr Drug Dosing Not Reportable Est GFR ( Amer) 89.0 ml/min Est GFR (Non-Af Amer) 76.8 ml/min BUN/Creatinine Ratio 10.6 (10-20) Glucose 129 H (70-99(Fasting)) mg/dl Calcium 8.8 (8.6-10.3) mg/dl Total Bilirubin 0.8 (0.2-1.0) mg/dl AST 15 (13-39) U/L ALT 14 (7-52) U/L Alkaline Phosphatase 59 (34-104) U/L Troponin I High Sens 368.2 H* (0-20) pg/ml Total Protein 6.5 (6.0-8.3) gm/dl Albumin 3.9 (3.4-5.0) gm/dl Globulin 2.6 (2.5-4.0) gm/dl Albumin/Globulin Ratio 1.5 (0.9-2) Lipase 10 L (11-82) U/L Administered Medications Heparin Sodium/Dextrose (Heparin Sodium/Dextrose) 25,000 units in 500 mls @ 32 mls/hr IV .[id number] [facility]; Protocol Stop: 07/13/23 13:14 Last Admin: 06/13/23 13:27 Dose: 1,600 units/hr, 32 mls/hr Documented By: ACC Co-signed By: BAIRON Discontinued Medications Heparin Sodium (Porcine) (Heparin Sod (Porcine) 1000 Unit/Ml) 7,000 units IV NOW ONE Stop: 06/13/23 13:31 Last Admin: 06/13/23 13:28 Dose: 7,000 units Documented By: ACC Co-signed By: BAIRON Heparin Sodium/Dextrose (Heparin Iv Adult Wt-Based Standard W/ Initial Bolus Protocol) 1 each IV NOW STA; Protocol Stop: 06/13/23 12:55 Last Admin: 06/13/23 14:02 Dose: Not Given Documented By: ACC Potassium Chloride (Potassium Chloride 20 Meq/15 Ml Udc) 20 meq PO NOW STA Stop: 06/13/23 13:06 Last Admin: 06/13/23 13:28 Dose: 20 meq Documented By: ACC Discharge Plan Visit Data Chief Complaint: Shortness of Breath/Dyspnea Stated Complaint: ABNORMAL CT SCAN, SENT BY CT ED Provider: Evens Mccray Discharge Problem: Pulmonary embolism, MOORE (dyspnea on exertion), Hypokalemia, Anemia Patient Disposition: Being Evaluated by Hospitalist Forms Stand Alone Forms: [facility] Prescriptions Prescriptions: No Action latanoprost 0.005 % drops 1 drp ophthalmic (eye) DAILY Eylea 2 mg/0.05 mL solution 2 mg intravitreal UD Patient Comments: injection every 6 weeks, last dose 12/24/22 folic acid 1 mg tablet 1 mg PO QAM ondansetron HCl 8 mg tablet 8 mg PO Q8H PRN (Reason: Nausea) prochlorperazine maleate [Compazine] 10 mg tablet 10 mg PO Q6H PRN (Reason: Nausea) Magic Mouthwash 300 mL mouthwash 5 ml mucous membrane DAILY Qty: 300 methotrexate sodium 2.5 mg tablet 12.5 mg PO QAM levothyroxine 150 mcg tablet 150 mcg PO QAM hydrochlorothiazide 12.5 mg tablet 25 mg PO QAM metoprolol tartrate 25 mg tablet 25 mg PO BID lorazepam 0.5 mg tablet 0.5 mg PO TID PRN (Reason: prn) lisinopril 10 mg tablet 10 mg PO QAM azithromycin 250 mg tablet 250 mg PO MOWEFR 30 Days Qty: 18 6RF Rx Instructions: Take 1 tablet orally every Tuesday, Tuesday, and Tuesday (DME) Oxygen Home E0424 Liters Per Minute See Rx Instructions .ROUTE .MEDSUPPLY Qty: 1 0RF Rx Instructions: 6 L/min with exertion and nightly Trelegy Ellipta 100-62.5-25 mcg blister with device 1 inh inhalation DAILY Rx Instructions: USE 1 INHALATION DAILY Referrals Referrals: Randall King DO [Primary Care Provider] - Discharge Problem: Pulmonary embolism Qualifiers: Pulmonary embolism type: unspecified Chronicity: acute Acute cor pulmonale presence: unspecified Qualified Code(s): I26.99 - Other pulmonary embolism without acute cor pulmonale Anemia Qualifiers: Anemia type: unspecified type Qualified Code(s): D64.9 - Anemia, unspecified
[2023-06-13 12:47] LABS: Hematocrit (blood only) 30.7 % (42.0-52.0); Hemoglobin 10.3 g/dl (14.0-18.0); Lymphocytes % (auto) 7.6 %; Mean Corpuscular Hemoglobin 32.3 pg (25.0-34.0); Mean Corpuscular Hgb Conc 33.6 g/dL (32.0-36.0); Mean Corpuscular Volume 96.2 fL (80.0-100.0); Mean Platelet Volume 10.9 fL (9.4-12.4); Neutrophils % (auto) 79.8 %; Platelet Count 278 K/uL (130-400); RDW Coefficient of Variation 20.8 % (11.5-14.5); Red Blood Count 3.19 M/uL (4.70-6.10); White Blood Count 5.54 K/ul (4.8-10.8)
[2023-06-13 12:48] LABS: Basophils # (auto) 0.04 K/uL (0.00-0.20); Basophils % (auto) 0.7 %; Immature Granulocytes # (auto) 0.06 K/uL (0.01-0.20); Immature Granulocytes % (auto) 1.1 %; Lymphocytes # (auto) 0.42 K/uL (1.20-3.40); Monocytes % (auto) 10.8 %; Neutrophils # (auto) 4.42 K/uL (1.40-6.50); Nucleated RBC # (auto) 0.02 K/uL (0.00-0.12); Nucleated RBC % (auto) 0.4 %
[2023-06-13 13:02] LABS: Alanine Aminotransferase 14 U/L (7-52); Albumin Globulin Ratio 1.5 (0.9-2); Albumin Level 3.9 gm/dl (3.4-5.0); Alkaline Phosphatase 59 U/L (34-104); Anion Gap 9 (3-11); Aspartate Aminotransferase 15 U/L (13-39); BUN Creatinine Ratio 10.6 (10-20); Bilirubin,Total 0.8 mg/dl (0.2-1.0); Blood Urea Nitrogen 10 mg/dl (6-23); Calcium 8.8 mg/dl (8.6-10.3); Carbon Dioxide 26 mmol/L (21-32); Chloride 103 mmol/L (98-107); Est GFR (Non-African American) 76.8 ml/min; Globulin 2.6 gm/dl (2.5-4.0); Glucose 129 mg/dl (70-99(Fasting)); Lipase 10 U/L (11-82); Potassium 3.2 mmol/L (3.5-5.1); Sodium 138 mmol/L (136-145); Total Protein 6.5 gm/dl (6.0-8.3)
[2023-06-13 13:09] LABS: Troponin I High Sensitivity 368.2 pg/ml (0-20)
[2023-06-13 13:10] LABS: INR 1.1 (0.9-1.1); Partial Thromboplastin Ratio 1.3; Partial Thromboplastin Time 36 Seconds (21-31); Prothrombin Time 12.1 Seconds (9.0-12.0)
[2023-06-13] MEDS ORDERED: HEPARIN SOD (PORCINE) 1000 UNIT/ML IV ONE (13:10)
[2023-06-13] MEDS: HEPARIN SODIUM/DEXTROSE 25,000 UNITS/500 ML BAG IV SCH (13:27)
[2023-06-13] MEDS: HEPARIN SOD (PORCINE) 1000 UNIT/ML IV ONE (13:28)
[2023-06-13] MEDS: POTASSIUM CHLORIDE 20 MEQ/15 ML UDC PO STA (13:28)
[2023-06-13 13:29] LABS: Anisocytosis Present; Polychromasia 1+; Tear Drop Cells 1+
[2023-06-13] MEDS: Heparin IV Adult Wt-Based Standard w/ INITIAL Bolus Protocol IV STA (14:02)
--- NOTE | 2023-06-13 14:15 | History & Physical Report ---
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 Referred to ED 2/2 CTA chest positive for pulmonary embolism --CTA chest: 1. Extensive bilateral pulmonary emboli as above.2. Emphysema and mild cardiomegaly.3. A paramediastinal spiculated opacity in the anterior left upper lobe has increased in size as compared to 01/26/2023. This likely represents progression of disease.4. A 1.4 cm spiculated opacity in the right lower lobe is new from previous. Although this could potentially be inflammatory, this also favors progressive metastatic disease. Attention at follow-up is recommended.5. Additional lesions at the left apex and in the left perihilar region are similar to previous.6. There is no airspace consolidation typical for pneumonia.7. Trace left pleural effusion.8. Bilateral nephrolithiasis.9. Additional findings as above. Pulmonary embolism Elevated troponin Hypoxia Shortness of breath Lactic acidosis Admit to PCU continue IV heparin consult pulmonology obtain b/l venous dopplers, echocardiogram to eval for right heart strain cycle troponins can discuss with patients oncologist, Dr. Brown, regarding their preference for anticoagulation Small Cell lung cancer s/p completion of chemoradiation on 05/29 with carboplatin/etopside and radiation imaging today with evidence of disease progress [facility] will need close f/u at discharge Anemia hgb stable at 10.3 recent transfusion multifocal in setting of malignancy and recent chemotherapy Severe COPD tobacco abuse continue with home inhalers, 3xwk azithromycin pt will need a refill for azithromycin at discharge Hypokalemia K 3.2, received 20meq kcl in ED will supplement for 40meqKCL additional on floor replete HTN chronic, stable continue home meds Hypothyroidism chronic, stable continue meds Psoriatic arthritis On MTX weekly SANGEETA pt requesting ativan due to anxiety give 1x dose now and continue prn DVT ppx: IV Heparin Dispo:PCU FULL CODE PCP: Dr. Randall King Pt was seen and examined in collaboration with Dr. Avila, please see addendum A total of 50 minutes was spent coordinating, documenting, and providing care for this patient excluding time spent in the performance of separately billed services. This included personally viewing all current laboratories and imaging studies, medication reconciliation, outpatient chart review, and discussion with specialists. 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 He was seen in clinic today but Dr. Howard due to c/o worsening shortness of breath. His outpatient records were reviewed. He has been having SOB for approx 5 weeks. He was in the process of a prednisone taper which had minimal improvement of his SOB. He was seen by his oncology provider who prescribed him levaquin as well as gave him a blood transfusion due to anemia. Neither of these treatments have helped with his SOB. Due to SOB and evidence of lower ext edema a CTA chest was ordered. This revealed extensive bilateral pulmonary emboli. Also noted is a spiculated opacity in anterior YONY increased in size from previous which represents progression of disease along with a new spiculated lesion in RLL. [facility] He currently is s/p carboplatin/etopside with radiation added to te second cycle of chemo. This completed on 05/29. Per Pt he has been noticing increased SOB over the last 2 weeks. Even just walking from his chair to another room he felt like he was, "drowning, gasping for air." This has been progressively getting worse. He currently denies f/c/s, chest pain, hemoptysis, n/v/d, abd pain or change in bowel/urinary habits. He has had a dry cough for about 1 week. Allergies Allergy/AdvReac Type Severity Reaction Status Date / Time adhesive Allergy Mild RASH Verified 06/08/23 12:45 No Known Drug Allergies Allergy Verified 06/08/23 12:45 Home Medications Medication Instructions Recorded Confirmed Type levothyroxine 150 mcg tablet 150 mcg PO Cheryle@0630 11/07/18 06/13/23 History hydrochlorothiazide 12.5 mg tablet 25 mg PO QAM 11/27/18 06/13/23 History metoprolol tartrate 25 mg tablet 25 mg PO BID 11/27/18 06/13/23 History aflibercept 2 mg/0.05 mL 2 mg intravitreal UD 03/16/23 06/13/23 History intravitreal solution for injection (Eylea) folic acid 1 mg tablet 1 mg PO QAM 03/16/23 06/13/23 History latanoprost 0.005 % eye drops 1 drp ophthalmic (eye) DAILY 03/16/23 06/13/23 History lisinopril 10 mg tablet 10 mg PO BID 03/16/23 06/13/23 History lorazepam 0.5 mg tablet 0.5 mg PO TID PRN prn 03/16/23 06/13/23 History methotrexate sodium 2.5 mg tablet 12.5 mg PO QAM 03/16/23 06/13/23 History fluticasone fur. 100 mcg-umeclid 1 inh inhalation DAILY 03/30/23 06/13/23 History 62.5 mcg-vilant 25 mcg inhalat.powder (Trelegy Ellipta) azithromycin 250 mg tablet 250 mg PO MOWEFR 30 days #18 tabs 04/14/23 06/13/23 Rx ondansetron HCl 8 mg tablet 8 mg PO Q8H PRN Nausea 04/18/23 06/13/23 History prochlorperazine maleate 10 mg 10 mg PO Q6H PRN Nausea 04/18/23 06/13/23 History tablet (Compazine) Oxygen Home [id number] #1 ea 06/13/23 06/13/23 Rx levothyroxine 150 mcg tablet 300 mcg PO CARBAJAL 06/13/23 06/13/23 History Past Med/Surg History Medical History History of pneumothorax 20 years ago Lung cancer chemo 03/24/2023, [facility] next dose 04/12/23 History of kidney stones passed on own Anxiety Hyperlipemia Psoriatic arthritis Glaucoma Hypertension Hypothyroidism COPD (chronic obstructive pulmonary disease) Surgical History Port-A-Cath in place (04/07/23) Insertion Access Port Left Chest with Fluoroscopy(Left) - David Hicks MD, FACS History of bronchoscopy 02/18/2023 History of colonoscopy History of surgery on extremity leg History of surgery History of median sternotomy, removal of thymus gland History of cholecystectomy Family History Unknown Hypertension Father Urinary bladder cancer Other No family history of bleeding disorder Social History Smoking Status: Never smoker Tobacco Type: Cigarettes Age Started Using Tobacco: 19; Age Quit Using Tobacco: 68; packs per day: 2; Cigarettes Per Day: 2015; Second Hand Exposure: No; Do You Dip or Chew Tobacco: No; Hx Alcohol Use: No Hx Substance Use: No Preferred Language: [place] Communication Ability: Effective 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 Avila addendum for physical exam findings. Results & Data Results & Data Vital Signs (Past 12 Hours) Vital Signs Temp Pulse Resp BP Pulse Ox O2 Del Method 06/13/23 14:00 87 18 93 06/13/23 14:00 121/78 06/13/23 13:00 85 19 93 06/13/23 13:00 123/68 06/13/23 12:52 92 Room Air 06/13/23 12:31 87 06/13/23 12:30 90 15 93 06/13/23 12:30 132/77 06/13/23 12:06 36.8 C 85 22 111/66 92 Laboratory Results Short CBC 06/13/23 Range/Units 12:17 WBC 5.54 (4.8-10.8) K/ul Hgb 10.3 L (14.0-18.0) g/dl Hct 30.7 L (42.0-52.0) % Plt Count 278 (130-400) K/uL BMP 06/13/23 12:17 Sodium 138 Potassium 3.2 L Chloride 103 Carbon Dioxide 26 BUN 10 Creatinine 0.94 Glucose 129 H Calcium 8.8 Liver Function 06/13/23 Range/Units 12:17 Total Bilirubin 0.8 (0.2-1.0) mg/dl AST 15 (13-39) U/L ALT 14 (7-52) U/L Alkaline Phosphatase 59 (34-104) U/L Albumin 3.9 (3.4-5.0) gm/dl Diagnostic Findings CT ANGIOGRAM OF THE CHEST CLINICAL HISTORY: Lung cancer. COMPARISON STUDY: Chest x-ray dated 05/10/2023. Chest CT dated 01/26/2023. TECHNIQUE: Following the IV administration of 118 cc of Optiray 320, CT angiogram of the chest was performed from the upper abdomen to the thoracic inlet utilizing the pulmonary embolus protocol. Images are reviewed in the axial, sagittal, and coronal planes. 3-D MIPS images are created and assessed. IV contrast was administered without complication. A dose lowering technique was utilized adhering to the principles of ALARA. CT DOSE: 840.4 mGy.cm FINDINGS: Thyroid: Atrophic. Thoracic aorta: There is a sclerotic calcification of the thoracic aorta, which is normal in caliber and demonstrates bovine variant arch anatomy. No dissection is seen. Pulmonary vasculature: The pulmonary trunk is normal in caliber. There is pulmonary embolus within the distal left main pulmonary artery. This extends into the left upper and lower lobe pulmonary arteries as well as within the lingular pulmonary artery into segmental and subsegmental branches. There is pulmonary embolus within the right middle and lower lobe pulmonary arteries which extends into segmental and subsegmental branches. Heart: A left subclavian central venous infusion port is in place. The patient is status post midline sternotomy. The heart is mildly enlarged and without pericardial effusion. The coronary arteries are densely calcified. Lungs and pleural spaces: Emphysematous change is again noted. There is no lobar consolidation. A 1.9 cm spiculated opacity at the left apex on image #205 and an irregular curvilinear opacity in the left upper lobe on image #145 are similar to previous. There is an enlarging spiculated lesion in the anterior paramediastinal left upper lobe on image #142. This measures 3.3 x 2.2 cm (previously measured 2.3 x 1.6). A new spiculated lesion in the right lower lobe on image #141 measuring 1.4 cm new from 01/26/2023. A 1.5 cm ovoid left lower lobe pulmonary nodule on image #90 is unchanged. This contains macroscopic fat and likely represents a hamartoma. There is trace left pleural effusion. A calcified granuloma at the left lung base is unchanged. Mediastinum: There is no mediastinal lymphadenopathy. Fatemeh: Clear. Axillae: There is no axillary lymphadenopathy. Upper abdomen: There is a tiny hiatal hernia. Cholecystectomy clips are noted. Nonobstructing calculi are seen in the upper poles of both kidneys and measure up to 8 mm. No adrenal lesion is seen. Skeletal structures: The skeletal structures are osteopenic. Degenerative change and hyperkyphosis is noted in the spine. No lytic or blastic bony lesions are seen. IMPRESSION: 1. Extensive bilateral pulmonary emboli as above. 2. Emphysema and mild cardiomegaly. 3. A paramediastinal spiculated opacity in the anterior left upper lobe has increased in size as compared to 01/26/2023. This likely represents progression of disease. 4. A 1.4 cm spiculated opacity in the right lower lobe is new from previous. Although this could potentially be inflammatory, this also favors progressive metastatic disease. Attention at follow-up is recommended. 5. Additional lesions at the left apex and in the left perihilar region are similar to previous. 6. There is no airspace consolidation typical for pneumonia. 7. Trace left pleural effusion. 8. Bilateral nephrolithiasis. 9. Additional findings as above. Medications Administered Medication List Heparin Sodium/Dextrose (Heparin Sodium/Dextrose) 25,000 units in 500 mls @ 32 mls/hr IV .[id number] [facility]; Protocol Stop: 07/13/23 13:14 Last Admin: 06/13/23 13:27 Dose: 1,600 units/hr, 32 mls/hr Documented By: ACC Co-signed By: ANG Discontinued Medications Heparin Sodium (Porcine) (Heparin Sod (Porcine) 1000 Unit/Ml) 7,000 units IV NOW ONE Stop: 06/13/23 13:31 Last Admin: 06/13/23 13:28 Dose: 7,000 units Documented By: ACC Co-signed By: BAIRON Heparin Sodium/Dextrose (Heparin Iv Adult Wt-Based Standard W/ Initial Bolus Protocol) 1 each IV NOW STA; Protocol Stop: 06/13/23 12:55 Last Admin: 06/13/23 14:02 Dose: Not Given Documented By: ACC Potassium Chloride (Potassium Chloride 20 Meq/15 Ml Udc) 20 meq PO NOW STA Stop: 06/13/23 13:06 Last Admin: 06/13/23 13:28 Dose: 20 meq Documented By: ACC Code Status & VTE Plan Code Status FULL CODE Supervising Physician Co-Signing Physician Notes I have seen and discussed the case with the collaborating advanced practitioner. I agree with the above H&P. I have reviewed and confirmed the patients medical history, the findings on physical examination, and the patients diagnosis and treatment plan with Jagdish BOWDEN and agree with the information documented. Mr Palma is a 78 year old gentleman with history of neuroendocrine lung cancer s/p chemoradition who is admitted for acute hypoxic resp failure 2/2 pulmonary emboli. Patient with over a month of LLE swelling, then 2 weeks of progressive MOORE. Doppler +LLE popliteal DVT CTA: Pulmonary vasculature: The pulmonary trunk is normal in caliber. There is pulmonary embolus within the distal left main pulmonary artery. This extends into the left upper and lower lobe pulmonary arteries as well as within the lingular pulmonary artery into segmental and subsegmental branches. There is pulmonary embolus within the right middle and lower lobe pulmonary arteries which extends into segmental and subsegmental branches. Heart: A left subclavian central venous infusion port is in place. The patient is status post midline sternotomy. The heart is mildly enlarged and without pericardial effusion. The coronary arteries are densely calcified. Lungs and pleural spaces: Emphysematous change is again noted. There is no lobar consolidation. A 1.9 cm spiculated opacity at the left apex on image #205 and an irregular curvilinear opacity in the left upper lobe on image #145 are similar to previous. There is an enlarging spiculated lesion in the anterior paramediastinal left upper lobe on image #142. This measures 3.3 x 2.2 cm (previously measured 2.3 x 1.6). A new spiculated lesion in the right lower lobe on image #141 measuring 1.4 cm new from 01/26/2023. A 1.5 cm ovoid left lower lobe pulmonary nodule on image #90 is unchanged. This contains macroscopic fat and likely represents a hamartoma. There is trace left pleural effusion. A calcified granuloma at the left lung base is unchanged. GENERAL APPEARANCE: AxOx4, chronically ill gentleman, no acute distress. HEENT: NC, AT. MMM. EOMI, clear conjunctiva, oropharynx clear. NECK: Supple without lymphadenopathy. No stiffness or restricted ROM. HEART: Normal rate and regular rhythm, normal S1/S1, no m/r/g LUNGS: CTAB, moving air well. dry cough with deep inhalation ABDOMEN: Soft, nontender, nondistended with good bowel sounds heard. EXTREMITIES: LLE edema > RLE NEUROLOGICAL: Grossly nonfocal. Alert and oriented, moving all 4 extremities. CN not formally tested but appear grossly intact. Skin: Warm and dry without any rash. #Submassive PE, provoked iso malignancy #Elevated troponin, likely iso strain due to PE Large clot burden, +troponin Continue Hepain drip Admit PCU/tele ECHO now Dopplers now Cycle troponin VS q4h Trend lactate Pulm consult Heme/Onc to discuss ideal DOAC v [facility] upon dc #hypokalemia replace po, repeat bmp in am #New hypoxia, 6L on exertion and nighttime likely multifactorial, exacerbated iso thromboembolic disease Wean oxygen as needed #Lung cancer, suspicious for neuroendocrine tumor undergoing chemoradiation #Severe COPD Continue trelegy, albuterol Rest of plan as above I spent a total of 45 minutes coordinating, documenting, and providing care for this patient excluding time spent in the performance of separately billed services. All of the aforementioned completed outside of collaborating with the assigned advanced practitioner for a full treatment plan. I have reviewed the advanced practitioner's documentation, and I agree with, and take responsibility for the plan of care (1) Pulmonary embolism Acute cor pulmonale presence: unspecified Chronicity: acute Pulmonary embolism type: unspecified Qualified Code(s): I26.99 - Other pulmonary embolism without acute cor pulmonale (4) Anemia Anemia type: unspecified type Qualified Code(s): D64.9 - Anemia, unspecified
--- NOTE | 2023-06-13 15:23 | Ultrasound Report ---
ULTRASOUND BILATERAL LOWER EXTREMITY VENOUS CLINICAL HISTORY: Pulmonary embolus. COMPARISON STUDY: Bilateral lower extremity venous ultrasound dated 03/22/2023. TECHNIQUE: Real-time, grayscale, and color Doppler sonography of the deep veins of the right and left lower extremity was performed from the inguinal crease to the calf. Compression and augmentation wer e utilized. FINDINGS: Right lower extremity: There is no sonographic evidence of deep venous thrombosis in the right lower extremity. The common femoral, superficial femoral, and popliteal veins are patent and normally compr essible. The greater saphenous vein and the profunda femoris vein at the junction with the common fem oral vein are clear. The visualized calf veins are patent. Left lower extremity: There is occlusive deep venous thrombosis identified in the mid to distal popli teal vein. The common femoral and superficial femoral Veins are patent and normally compressible. The greater saphenous vein and the profunda femoris vein at the junction with the common femoral vein ar e clear. The visualized calf veins are patent. IMPRESSION: 1. Occlusive deep venous thrombosis in the left popliteal vein as above. 2. There is no sonographic evidence of deep venous thrombosis in the right lower extremity. ACT 112: Negative or not required by law. Electronically signed by: Joselo Dubon M.D. 06/13/2023 3:21 PM
[2023-06-13] MEDS: LORazepam 1 MG/1 ML SYR ED Inj Use IV STA (15:49)
--- NOTE | 2023-06-13 15:57 | Pulmonary Consultation ---
Date of Consultation June 13, 2023 Assessment & Plan (1) Acute pulmonary embolism: Pulmonary embolism type: unspecified Acute cor pulmonale presence: unspecified Qualified Code(s): I26.99 - Other pulmonary embolism without acute cor pulmonale (2) Acute deep vein thrombosis of left lower extremity: Affected thrombotic vein of extremity: popliteal Qualified Code(s): I82.432 - Acute embolism and thrombosis of left popliteal vein (3) Hypoxia: (4) Troponin level elevated: (5) Elevated brain natriuretic peptide (BNP) level: (6) COPD (chronic obstructive pulmonary disease): COPD type: emphysema Emphysema type: centrilobular Qualified Code(s): J43.2 - Centrilobular emphysema Plan 78-year-old male with a past medical history of small cell lung cancer, advanced COPD and hypertension who is presenting to the ER via personal vehicle from the request of his outpatient crew manager. He was found to have extensive embolism bilaterally on CT chest and a popliteal vein DVT in the left lower extremity. This PE represents high risk disease and I would recommend admission to the PCU. Continue heparin infusion. I did discuss systemic thrombolysis with the patient and his at this time I do not feel that the patient requires systemic thrombolysis as he is hemodynamically stable and his symptoms are improving. His troponin is downtrending and his BNP is only mildly elevated. Echo results noted an elevated ST pulmonary artery systolic pressure of 48 mmHg. I do suspect he has a degree of chronic cor pulmonale related to his severe COPD. Continue supplemental oxygen to maintain saturations above 90% as hypoxemia can be a potent vasoconstrictor. Patient will likely require lifelong anticoagulation given his unprovoked PE, size of PE, COPD and active malignancy. He does have a history of COPD. Recommend continuing ICS/LABA/LAMA while inpatient. No signs of COPD exacerbation at this time Pulmonary to continue to follow along with you. Thank you for the consult. Please call with questions History of Present Illness Reason for Consultation: 78-year-old male with acute pulmonary embolism History of Present Illness 78-year-old male with a history of small cell lung cancer, severe obstructive lung disease and hypertension who is presenting to the ER at the request of his outpatient crew manager, Dr. Howard. Patient was having increasing shortness of breath and left lower leg swelling for the past 2 to 3 days. He also endorses some mild chest discomfort which has improved since being in the ER. He had a CT scan of his chest which revealed bilateral pulmonary emboli and diffuse severe centrilobular emphysema. Ultrasound of his lower extremity also revealed a left popliteal occlusive DVT. Patient is currently on a heparin infusion. He denies any prior history of VTE. He feels that his shortness of breath is well- controlled while at rest. He has been on several courses of prednisone lately due to recurrent bouts of shortness of breath. He is maintained on Trelegy inhaler at baseline. He is not on chronic oxygen therapy. He is currently needing 2 to 3 L of oxygen via nasal cannula at rest to maintain sats above 90% BNP is mildly elevated to 171. Troponin elevated to 337.7 and downtrending from 368.2 Allergies Allergy/AdvReac Type Severity Reaction Status Date / Time adhesive Allergy Mild RASH Verified 06/08/23 12:45 No Known Drug Allergies Allergy Verified 06/08/23 12:45 Home Medications Medication Instructions Recorded Confirmed Type levothyroxine 150 mcg tablet 150 mcg PO [id number] 11/07/18 06/13/23 History hydrochlorothiazide 12.5 mg tablet 25 mg PO QAM 11/27/18 06/13/23 History metoprolol tartrate 25 mg tablet 25 mg PO BID 11/27/18 06/13/23 History aflibercept 2 mg/0.05 mL 2 mg intravitreal UD 03/16/23 06/13/23 History intravitreal solution for injection (Eylea) folic acid 1 mg tablet 1 mg PO QAM 03/16/23 06/13/23 History latanoprost 0.005 % eye drops 1 drp OPB DAILY 03/16/23 06/13/23 History lisinopril 10 mg tablet 10 mg PO BID 03/16/23 06/13/23 History lorazepam 0.5 mg tablet 0.5 mg PO TID PRN prn 03/16/23 06/13/23 History methotrexate sodium 2.5 mg tablet 12.5 mg PO SA 03/16/23 06/13/23 History fluticasone fur. 100 mcg-umeclid 1 inh inhalation DAILY 03/30/23 06/13/23 History 62.5 mcg-vilant 25 mcg inhalat.powder (Trelegy Ellipta) azithromycin 250 mg tablet 250 mg PO MOWEFR 30 days #18 tabs 04/14/23 06/13/23 Rx ondansetron HCl 8 mg tablet 8 mg PO Q8H PRN Nausea 04/18/23 06/13/23 History prochlorperazine maleate 10 mg 10 mg PO Q6H PRN Nausea 04/18/23 06/13/23 History tablet (Compazine) Oxygen Home [id number] #1 ea 06/13/23 06/13/23 Rx levothyroxine 150 mcg tablet 300 mcg PO CARBAJAL 06/13/23 06/13/23 History Patient History Medical History (Updated 06/13/23 @ 15:53 by Ronnie Galaviz MD) Hypoxia Elevated brain natriuretic peptide (BNP) level Troponin level elevated Acute pulmonary embolism Acute deep vein thrombosis of left lower extremity History of pneumothorax 20 years ago Lung cancer chemo 03/24/2023, Cancer [place] next dose 04/12/23 History of kidney stones passed on own Anxiety Hyperlipemia Psoriatic arthritis Glaucoma Hypertension Hypothyroidism COPD (chronic obstructive pulmonary disease) Surgical History Port-A-Cath in place (04/07/23) Insertion Access Port Left Chest with Fluoroscopy(Left) - David Hicks MD, FACS History of bronchoscopy 02/18/2023 History of colonoscopy History of surgery on extremity leg History of surgery History of median sternotomy, removal of thymus gland History of cholecystectomy Family History Unknown Hypertension Father Urinary bladder cancer Other No family history of bleeding disorder Social History Smoking Status: Never smoker Tobacco Type: Cigarettes Age Started Using Tobacco: 19; Age Quit Using Tobacco: 68; packs per day: 2; Cigarettes Per Day: 2015; Second Hand Exposure: No; Do You Dip or Chew Tobacco: No; Hx Alcohol Use: No Hx Substance Use: No Preferred Language: Estonian Communication Ability: Effective Fitness Professional Required: No Beliefs That Will Affect Care: None marital status: Current Living Situation: Spouse current occupational status: retired How many Children do You have: 4 Feels Safe at Home: Yes Diet: regular during the past year weight has: remained stable Assistive Devices: None Review of Systems Review of Systems: All systems reviewed & are unremarkable except as noted in HPI & below Physical Exam Physical Exam: Constitutional: Patient appears to be of their stated age. Patient is in no apparent distress. Patient is well-developed. Eyes: Pupils are equal round and reactive to light. Conjunctivae are normal. Anicteric sclera. Ears nose, mouth and throat: Mallampati class 2. Normal posterior oropharynx. Uvula is midline. Neck: Trachea is midline. Visual inspection is normal. Respiratory: Diffusely diminished. Prolonged phase of exhalation. No wheezes Cardiovascular: Regular rate and rhythm. No murmurs. Bilateral 2+ lower extremity edema, left greater than right. Gastrointestinal: Normal bowel sounds, soft, nontender and nondistended. No hepatosplenomegaly noted. Musculoskeletal: No cyanosis. Patient is able to move all extremities. Strength is 5 out of 5 in the upper and lower extremities. Skin: No rashes, warm dry and intact. Neurologic: No obvious focal neurological deficits seen. Psychiatric: Alert and oriented x3 with a euthymic affect. Results & Data Results & Data Vital Signs (Past 12 Hours) Vital Signs Temp Pulse Resp BP Pulse Ox O2 Del Method 06/13/23 14:00 87 18 93 06/13/23 14:00 121/78 06/13/23 13:00 85 19 93 06/13/23 13:00 123/68 06/13/23 12:52 92 Room Air 06/13/23 12:31 87 06/13/23 12:30 90 15 93 06/13/23 12:30 132/77 06/13/23 12:06 36.8 C 85 22 111/66 92 PG Care Time/CCT Total # of Minutes Spent Total Time Spent with Patient: Total time spent is greater than 50% in coordination of care (as documented) at patient's floor/unit and/or counseling patient: Coding Level of Care Code 29670 INT INP/OBS CARE 3/75MIN Diagnoses Acute pulmonary embolism, unspecified pulmonary embolism type, unspecified whether acute cor pulmonale present I26.99 Pulmonary embolism type: unspecified Acute cor pulmonale presence: unspecified Acute deep vein thrombosis (DVT) of popliteal vein of left lower extremity I82.432 Affected thrombotic vein of extremity: popliteal Hypoxia R09.02 Troponin level elevated R79.89 Elevated brain natriuretic peptide (BNP) level R79.89 Centrilobular emphysema J43.2 COPD type: emphysema Emphysema type: centrilobular
[2023-06-13] MEDS ORDERED: POLYETHYLENE (MIRALAX) 17 GM PACK PO PRN (16:11)
[2023-06-13] MEDS ORDERED: MAGNESIUM HYDROXIDE SUSP 30 ML UDC PO PRN (16:11)
[2023-06-13] MEDS: POTASSIUM CHLORIDE CRTAB 20 MEQ TABCR PO ONE (18:09)
[2023-06-13] MEDS: AZITHROMYCIN 250 MG TAB PO SCH (18:09)
[2023-06-13] MEDS: lisinopril 10 MG TAB PO SCH (19:53)
[2023-06-13] MEDS: METOPROLOL TARTRATE 25 MG TAB PO SCH (19:54)
[2023-06-13] MEDS: LORazepam 0.5 MG TAB PO PRN (20:34)
[2023-06-13] MEDS: ACETAMINOPHEN 325 MG TAB PO PRN (20:34)
[2023-06-13 20:48] LABS: ANTI-Xa, UFH(UnfractionatedHep 0.69 IU/ml (0.3-0.7)
[2023-06-14 02:30] LABS: Basophils # (auto) 0.05 K/uL (0.00-0.20); Basophils % (auto) 1.1 %; Hematocrit (blood only) 25.5 % (42.0-52.0); Hemoglobin 8.5 g/dl (14.0-18.0); Immature Granulocytes # (auto) 0.05 K/uL (0.01-0.20); Immature Granulocytes % (auto) 1.1 %; Lymphocytes # (auto) 0.55 K/uL (1.20-3.40); Mean Corpuscular Hemoglobin 31.5 pg (25.0-34.0); Mean Corpuscular Hgb Conc 33.3 g/dL (32.0-36.0); Mean Corpuscular Volume 94.4 fL (80.0-100.0); Mean Platelet Volume 10.5 fL (9.4-12.4); Monocytes # (auto) 0.72 K/uL (0.11-0.59); Monocytes % (auto) 15.8 %; Platelet Count 238 K/uL (130-400); RDW Coefficient of Variation 20.4 % (11.5-14.5); RDW Standard Deviation 66.4 fL (36.4-46.3); White Blood Count 4.57 K/ul (4.8-10.8)
[2023-06-14 03:02] LABS: Anisocytosis Present; Tear Drop Cells 1+
[2023-06-14 03:15] LABS: ANTI-Xa, UFH(UnfractionatedHep 0.52 IU/ml (0.3-0.7)
[2023-06-14 03:26] LABS: Albumin Level 3.1 gm/dl (3.4-5.0); Calcium 8.3 mg/dl (8.6-10.3); Magnesium 1.7 mg/dl (1.7-2.4); Potassium 3.6 mmol/L (3.5-5.1)
[2023-06-14 03:31] LABS: Creatinine Clr Calc Pharmacy 82.2 ml/min; Est GFR (African American) 94.3 ml/min; Est GFR (Non-African American) 81.3 ml/min
[2023-06-14 04:27] LABS: Bilirubin,Total 0.7 mg/dl (0.2-1.0)
[2023-06-14 04:32] LABS: Albumin Globulin Ratio 1.4 (0.9-2); BUN Creatinine Ratio 7.9 (10-20); Globulin 2.2 gm/dl (2.5-4.0); Total Protein 5.3 gm/dl (6.0-8.3)
[2023-06-14] MEDS: LEVOTHYROXINE SODIUM 150 MCG TABLET PO SCH (05:42)
[2023-06-14] MEDS: UMECLIDINIUM BROMIDE 62.5MCG/BLISTER 7 PUFFS/INHALER INH SCH (08:26)
[2023-06-14] MEDS: FOLIC ACID 1 MG TAB PO SCH (08:26)
[2023-06-14] MEDS: hydroCHLOROthiazide 25 MG TAB PO SCH (08:26)
[2023-06-14] MEDS: FLUTICASONE/VILANTEROL 100/25MCG 14 PUFFS/INHALER INH SCH (08:27)
[2023-06-14] MEDS: LATANOPROST 0.005% OP SOLN 2.5 ML BTL OPB SCH (08:27)
--- NOTE | 2023-06-14 08:32 | Pulmonology Progress Note ---
Date of Service June 14, 2023 Assessment & Plan (1) Acute pulmonary embolism: Acute cor pulmonale presence: unspecified Pulmonary embolism type: unspecified Qualified Code(s): I26.99 - Other pulmonary embolism without acute cor pulmonale (2) Acute deep vein thrombosis of left lower extremity: Affected thrombotic vein of extremity: popliteal Qualified Code(s): I82.432 - Acute embolism and thrombosis of left popliteal vein (3) Hypoxia: (4) Troponin level elevated: (5) Elevated brain natriuretic peptide (BNP) level: (6) COPD (chronic obstructive pulmonary disease): COPD type: emphysema Emphysema type: centrilobular Qualified Code(s): J43.2 - Centrilobular emphysema Plan 78-year-old male with a past medical history of small cell lung cancer, advanced COPD and hypertension who is presenting to the ER via personal vehicle per the request of his outpatient mechanical shop laborer. He was found to have extensive embolism bilaterally on CT chest and a popliteal vein DVT in the left lower extremity. Continue with therapeutic anticoagulation utilizing heparin infusion. Will continue this for the next 2 to 3 days to ensure stabilization of clot and then transition to oral anticoagulant. No role for systemic thrombolysis at this time unless he clinically deteriorates. Echo findings noted. He has cor pulmonale which may be due to some degree of chronic given the severity of his COPD. Continue to maintain oxygen saturations greater than 90%. He does have a history of COPD. Recommend continuing ICS/LABA/LAMA while inpatient. No signs of COPD exacerbation at this time Pulmonary to continue to follow along with you. Thank you for the consult. Please call with questions Admission and Anticipated Discharge Date Admission Date: June 13, 2023 Subjective Patient seen and examined. Symptoms remained relatively stable compared to yesterday. Still dyspneic with exertion. Was able to get up and go to the bathroom, became very dyspneic. Denies any chest pain. Hemodynamically stable. He notes some mild diarrhea today. Review of Systems Review of Systems: All systems reviewed & are unremarkable except as noted in HPI & below Physical Exam Physical Exam: Constitutional: Patient appears to be of their stated age. Patient is in no apparent distress. Patient is well-developed. Eyes: Pupils are equal round and reactive to light. Conjunctivae are normal. Anicteric sclera. Ears nose, mouth and throat: Mallampati class 2. Normal posterior oropharynx. Uvula is midline. Neck: Trachea is midline. Visual inspection is normal. Respiratory: Diffusely diminished. Prolonged phase of exhalation. No wheezes Cardiovascular: Regular rate and rhythm. No murmurs. Bilateral 2+ lower extremity edema, left greater than right. Gastrointestinal: Normal bowel sounds, soft, nontender and nondistended. No hepatosplenomegaly noted. Musculoskeletal: No cyanosis. Patient is able to move all extremities. Strength is 5 out of 5 in the upper and lower extremities. Skin: No rashes, warm dry and intact. Neurologic: No obvious focal neurological deficits seen. Psychiatric: Alert and oriented x3 with a euthymic affect. Results & Data Results & Data Vital Signs (Past 12 Hours) Vital Signs Temp Pulse Pulse Resp BP Pulse Ox O2 Del Method 06/14/23 07:41 36.3 C L 82 17 109/71 90 Room Air 06/14/23 03:12 36.6 C 83 18 108/69 96 Nasal Cannula 06/13/23 22:44 37.1 C 92 H 18 107/67 94 Room Air 06/13/23 22:04 99 H 06/13/23 21:28 Room Air 06/13/23 21:02 Room Air O2 Flow Rate 06/14/23 07:41 06/14/23 03:12 2 06/13/23 22:44 06/13/23 22:04 06/13/23 21:28 06/13/23 21:02 PG Care Time/CCT Total # of Minutes Spent Total Time Spent with Patient: Total time spent is greater than 50% in coordination of care (as documented) at patient's floor/unit and/or counseling patient: Coding Level of Care Code 37278 SUB INP/OBS CARE 2/35MIN Diagnoses Acute pulmonary embolism, unspecified pulmonary embolism type, unspecified whether acute cor pulmonale present I26.99 Acute cor pulmonale presence: unspecified Pulmonary embolism type: unspecified Acute deep vein thrombosis (DVT) of popliteal vein of left lower extremity I82.432 Affected thrombotic vein of extremity: popliteal Hypoxia R09.02 Troponin level elevated R79.89 Elevated brain natriuretic peptide (BNP) level R79.89 Centrilobular emphysema J43.2 COPD type: emphysema Emphysema type: centrilobular
[2023-06-14] MEDS ORDERED: FLUTICASONE FUROATE 100MCG 14 PUFFS/INHALER INH SCH (09:00)
[2023-06-14] MEDS ORDERED: UMECLIDINIUM/VILANTEROL 62.5/25MCG 7 PUFFS/INHALER INH SCH (09:00)
[2023-06-14] MEDS ORDERED: NON-FORMULARY MEDICATION (Fluticasone-Umeclidin-Vilanter [Trelegy Ellipta] 100-62.5-25 mcg INH SCH (09:00)
--- NOTE | 2023-06-14 14:42 | Electrocardiogram Report ---
Test Reason : Blood Pressure : / mmHG Vent. Rate : 097 BPM Atrial Rate : 097 BPM P-R Int : 154 ms QRS Dur : 090 ms QT Int : 360 ms P-R-T Axes : 026 006 097 degrees QTc Int : 458 ms Sinus rhythm with frequent Premature ventricular complexes and Premature atrial complexes Nonspecific ST and T wave abnormality Prolonged QT Abnormal ECG When compared with ECG of 18-MAR-2023 13:08, Premature ventricular complexes are now Present Premature atrial complexes are now Present Nonspecific T wave abnormality now evident in Lateral leads Confirmed by Kenrick Llanes ([id number]) on 06/14/2023 2:41:31 PM Referred By: REFERRED SELF Confirmed By:Kenrick Llanes
--- NOTE | 2023-06-14 15:24 | Hospitalist Progress Note ---
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 Referred to ED 2/2 CTA chest positive for pulmonary embolism Acute pulmonary embolism Acute left lower extremity deep vein thrombosis Acute cor pulmonale Elevated troponin likely demand ischemia, type II PR Transient hypoxia secondary to above --CTA chest: Extensive bilateral pulmonary emboli. Emphysema and mild cardiomegaly. A paramediastinal spiculated opacity in the anterior left upper lobe has increased in size as compared to 01/26/2023. This likely represents progression of disease. A 1.4 cm spiculated opacity in the right lower lobe is new from previous. Although this could potentially be inflammatory, this also favors progressive metastatic disease. Attention at follow-up is recommended. Additional lesions at the left apex and in the left perihilar region are similar to previous.There is no airspace consolidation typical for pneumonia. Trace left pleural effusion.Bilateral nephrolithiasis. -- Venous Doppler:Occlusive deep venous thrombosis in the left popliteal vein as above. There is no sonographic evidence of deep venous thrombosis in the right lower extremity. --ECHO: Left ventricle ejection fraction 65 to 70%. Moderate concentric LVH. Mild tricuspid regurgitation. Estimated systolic blood pressure is 40 mmHg --Troponin trended down Hypoxia resolved Saturating low 90s on room air Appreciate pulmonology input Continue IV heparin Discuss with oncology Dr. 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 Needs follow-up as outpatient Anemia of chronic disease H/O recent transfusion Multifactorial in setting of malignancy and recent chemotherapy No obvious bleeding issues Monitor CBC Severe COPD Tobacco use disorder continue with home inhalers, 3xwk azithromycin Pt will need a refill for azithromycin at discharge Hypokalemia Hypomagnesemia Replace and monitor HTN chronic, stable continue home meds Hypothyroidism Continue levothyroxine Psoriatic arthritis On MTX weekly SANGEETA Ativan as needed DVT Px: IV Heparin Code Status FULL CODE Admission and Anticipated Discharge Date Admission Date: June 13, 2023 Subjective Patient is seen and examined at bedside Reports ongoing back pain Also reports dyspnea on exertion Denies any bleeding issues while on IV heparin Family at bedside Denies any chest pain, nausea, vomiting, abdominal pain No other complaints Review of Systems Review of Systems: All systems reviewed & are unremarkable except as noted in Subjective Physical Exam Physical Exam: Physical Exam: Vitals signs as noted above General Appearance:Moderately built and nourished, no apparent distress Head: normocephalic, Atraumatic Eyes: normal inspection, EOMI Neck: supple, Trachea midline Respiratory/Chest: Decreased breath sounds, CTA, No accessory muscle use Cardiovascular: S1, S2, No murmur Abdomen/GI:Soft, Non tender, Bowel sounds present Extremities/Musculoskeletal:normal inspection, 1-2+ edema Neurologic/Psych:AAOX3, grossly no focal neurological deficits, +decreased hearing Skin: normal color, warm Results & Data Results & Data Vital Signs (Past 12 Hours) Vital Signs Temp Pulse Pulse Resp BP Pulse Ox O2 Del Method 06/14/23 10:48 36.6 C 85 18 119/76 91 Room Air 06/14/23 07:41 36.3 C L 82 17 109/71 90 Room Air 06/14/23 07:30 82 06/14/23 07:30 Nasal Cannula O2 Flow Rate 06/14/23 10:48 06/14/23 07:41 06/14/23 07:30 06/14/23 07:30 2 Laboratory Results Short CBC 06/14/23 Range/Units 02:11 WBC 4.57 L (4.8-10.8) K/ul Hgb 8.5 L (14.0-18.0) g/dl Hct 25.5 L (42.0-52.0) % Plt Count 238 (130-400) K/uL BMP 06/14/23 02:11 Sodium 139 Potassium 3.6 Chloride 106 Carbon Dioxide 27 BUN 7 Creatinine 0.89 Glucose 115 H Calcium 8.3 L Liver Function 06/14/23 Range/Units 02:11 Total Bilirubin 0.7 (0.2-1.0) mg/dl AST 12 L (13-39) U/L ALT 10 (7-52) U/L Alkaline Phosphatase 50 (34-104) U/L Albumin 3.1 L (3.4-5.0) gm/dl (1) Pulmonary embolism Acute cor pulmonale presence: unspecified Chronicity: acute Pulmonary embolism type: unspecified Qualified Code(s): I26.99 - Other pulmonary embolism without acute cor pulmonale (4) Anemia Anemia type: unspecified type Qualified Code(s): D64.9 - Anemia, unspecified (6) COPD (chronic obstructive pulmonary disease) COPD type: emphysema Emphysema type: centrilobular Qualified Code(s): J43.2 - Centrilobular emphysema
[2023-06-15 06:23] LABS: Hematocrit (blood only) 26.4 % (42.0-52.0); Hemoglobin 8.5 g/dl (14.0-18.0); Mean Corpuscular Hemoglobin 31.4 pg (25.0-34.0); Mean Corpuscular Hgb Conc 32.2 g/dL (32.0-36.0); Mean Corpuscular Volume 97.4 fL (80.0-100.0); Nucleated RBC # (auto) 0.11 K/uL (0.00-0.12); Nucleated RBC % (auto) 2.5 %; Platelet Count 269 K/uL (130-400); RDW Coefficient of Variation 20.8 % (11.5-14.5); RDW Standard Deviation 68.5 fL (36.4-46.3); Red Blood Count 2.71 M/uL (4.70-6.10); White Blood Count 4.42 K/ul (4.8-10.8)
[2023-06-15 06:33] LABS: BUN Creatinine Ratio 6.7 (10-20); Calcium 8.1 mg/dl (8.6-10.3); Est GFR (African American) 101.1 ml/min; Est GFR (Non-African American) 87.2 ml/min; Magnesium 1.8 mg/dl (1.7-2.4); Potassium 3.2 mmol/L (3.5-5.1)
[2023-06-15] MEDS: APIXABAN 5 MG TABLET PO SCH (11:10)
[2023-06-15] MEDS: POTASSIUM CHLORIDE CRTAB 20 MEQ TABCR PO ONE (11:25)
--- NOTE | 2023-06-15 14:01 | Hospitalist Progress Note ---
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 Referred to ED 2/2 CTA chest positive for pulmonary embolism Acute pulmonary embolism Acute left lower extremity deep vein thrombosis Acute cor pulmonale Elevated troponin likely demand ischemia, type II [place] Transient hypoxia secondary to above --CTA chest: Extensive bilateral pulmonary emboli. Emphysema and mild cardiomegaly. A paramediastinal spiculated opacity in the anterior left upper lobe has increased in size as compared to 01/26/2023. This likely represents progression of disease. A 1.4 cm spiculated opacity in the right lower lobe is new from previous. Although this could potentially be inflammatory, this also favors progressive metastatic disease. Attention at follow-up is recommended. Additional lesions at the left apex and in the left perihilar region are similar to previous.There is no airspace consolidation typical for pneumonia. Trace left pleural effusion.Bilateral nephrolithiasis. -- Venous Doppler:Occlusive deep venous thrombosis in the left popliteal vein as above. There is no sonographic evidence of deep venous thrombosis in the right lower extremity. --ECHO: Left ventricle ejection fraction 65 to 70%. Moderate concentric LVH. Mild tricuspid regurgitation. Estimated systolic blood pressure is 40 mmHg --Troponin trended down Hypoxia resolved Saturating low 90s on room air Appreciate pulmonology input Discuss with oncology Dr. 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 Needs follow-up as outpatient Anemia of chronic disease H/O recent transfusion Multifactorial in setting of malignancy and recent chemotherapy No obvious bleeding issues Monitor CBC Severe COPD Tobacco use disorder continue with home inhalers, 3xwk azithromycin Pt will need a refill for azithromycin at discharge Hypokalemia Hypomagnesemia Replace and monitor HTN chronic, stable continue home meds Hypothyroidism Continue levothyroxine Psoriatic arthritis On MTX weekly SANGEETA Ativan as needed DVT Px: Eliquis Code Status FULL CODE Disposition Home Admission and Anticipated Discharge Date Admission Date: June 13, 2023 Subjective Patient is seen and examined at bedside No bleeding issues while on IV heparin No new complaints Dyspnea much improved Prefers to be discharged home today Denies any chest pain, nausea, vomiting, abdominal pain Had 2 step prior to discharge Review of Systems Review of Systems: All systems reviewed & are unremarkable except as noted in Subjective Physical Exam Physical Exam: Physical Exam: Vitals signs as noted above General Appearance:Moderately built and nourished, no apparent distress Head: normocephalic, Atraumatic Eyes: normal inspection, EOMI Neck: supple, Trachea midline Respiratory/Chest: Decreased breath sounds, CTA, No accessory muscle use Cardiovascular: S1, S2, No murmur Abdomen/GI:Soft, Non tender, Bowel sounds present Extremities/Musculoskeletal:normal inspection, 1-2+ edema Neurologic/Psych:AAOX3, grossly no focal neurological deficits, +decreased hearing Skin: normal color, warm Results & Data Results & Data Vital Signs (Past 12 Hours) Vital Signs Temp Pulse Pulse Pulse Pulse Pulse Pulse 06/15/23 13:42 101 H 104 H 101 H 89 06/15/23 11:43 36.4 C L 86 06/15/23 10:40 83 06/15/23 07:21 36.3 C L 92 H 06/15/23 03:25 36.7 C 85 Resp Resp Resp Resp Resp BP Pulse Ox 06/15/23 13:42 17 17 15 15 06/15/23 11:43 16 112/71 95 06/15/23 10:40 06/15/23 07:21 20 129/68 91 06/15/23 03:25 18 124/67 90 Pulse Ox Pulse Ox Pulse Ox Pulse Ox O2 Del Method O2 Flow Rate O2 Flow Rate 06/15/23 13:42 84 L 92 84 L 94 1 06/15/23 11:43 Room Air 06/15/23 10:40 06/15/23 07:21 Nasal Cannula 2 06/15/23 03:25 Nasal Cannula O2 Flow Rate 06/15/23 13:42 2 06/15/23 11:43 06/15/23 10:40 06/15/23 07:21 06/15/23 03:25 Laboratory Results Short CBC 06/15/23 Range/Units 05:46 WBC 4.42 L (4.8-10.8) K/ul Hgb 8.5 L (14.0-18.0) g/dl Hct 26.4 L (42.0-52.0) % Plt Count 269 (130-400) K/uL BMP 06/15/23 05:46 Sodium 141 Potassium 3.2 L Chloride 108 H Carbon Dioxide 27 BUN 5 L Creatinine 0.75 Glucose 117 H Calcium 8.1 L (1) Pulmonary embolism Acute cor pulmonale presence: unspecified Chronicity: acute Pulmonary embolism type: unspecified Qualified Code(s): I26.99 - Other pulmonary embolism without acute cor pulmonale (4) Anemia Anemia type: unspecified type Qualified Code(s): D64.9 - Anemia, unspecified (6) COPD (chronic obstructive pulmonary disease) COPD type: emphysema Emphysema type: centrilobular Qualified Code(s): J43.2 - Centrilobular emphysema
--- NOTE | 2023-06-15 14:14 | Discharge Summary ---
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 He was seen in clinic today but Dr. Howard due to c/o worsening shortness of breath. His outpatient records were reviewed. He has been having SOB for approx 5 weeks. He was in the process of a prednisone taper which had minimal improvement of his SOB. He was seen by his oncology provider who prescribed him levaquin as well as gave him a blood transfusion due to anemi a. Neither of these treatments have helped with his SOB. Due to SOB and evidence of lower ext edema a CTA chest was ordered. This revealed extensive bilateral pulmonary emboli. Also noted is a spiculated opacity in anterior YONY increased in size from previous which represents progression of disease along with a new spiculated lesion in RLL. [facility] He currently is s/p carboplatin/etopside with radiation added to te second cycle of chemo. This completed on 05/29. Per Pt he has been noticing increased SOB over the last 2 weeks. Even just walking from his chair to another room he felt like he was, "drowning, gasping for air." This has been progressively getting worse. He currently denies f/c/s, chest pain, hemoptysis, n/v/d, abd pain or change in bowel/urinary habits. He has had a dry cough for about 1 week. Admission Exam Per Admitting Provider GENERAL APPEARANCE: AxOx4, chronically ill gentleman, no acute distress. HEENT: NC, AT. MMM. EOMI, clear conjunctiva, oropharynx clear. NECK: Supple without lymphadenopathy. No stiffness or restricted ROM. HEART: Normal rate and regular rhythm, normal S1/S1, no m/r/g LUNGS: CTAB, moving air well. dry cough with deep inhalation ABDOMEN: Soft, nontender, nondistended with good bowel sounds heard. EXTREMITIES: LLE edema > RLE NEUROLOGICAL: Grossly nonfocal. Alert and oriented, moving all 4 extremities. CN not formally tested but appear grossly intact. Skin: Warm and dry without any rash. 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--incidental findings on MRI Hypokalemia Hypomagnesemia Discharge Data Allergies Allergy/AdvReac Type Severity Reaction Status Date / Time adhesive Allergy Mild RASH Verified 06/08/23 12:45 No Known Drug Allergies Allergy Verified 06/08/23 12:45 Consultations 06/13/23 14:04 ED Decision to Admit Stat 06/13/23 14:28 Consult Pulmonology Routine Procedures Performed Laboratory Results WBC 4.42 K/ul (4.8-10.8) L 06/15/23 05:46 RBC 2.71 M/uL (4.70-6.10) L 06/15/23 05:46 Hgb 8.5 g/dl (14.0-18.0) L 06/15/23 05:46 Hct 26.4 % (42.0-52.0) L 06/15/23 05:46 MCV 97.4 fL (80.0-100.0) 06/15/23 05:46 MCH 31.4 pg (25.0-34.0) 06/15/23 05:46 MCHC 32.2 g/dL (32.0-36.0) 06/15/23 05:46 RDW Std Deviation 68.5 fL (36.4-46.3) H 06/15/23 05:46 RDW Coeff of Cathi 20.8 % (11.5-14.5) H 06/15/23 05:46 Plt Count 269 K/uL (130-400) 06/15/23 05:46 MPV 11.0 fL (9.4-12.4) 06/15/23 05:46 Immature Gran % (Auto) 1.1 % 06/14/23 02:11 Neut % (Auto) 70.0 % 06/14/23 02:11 Lymph % (Auto) 12.0 % 06/14/23 02:11 [place] % (Auto) 15.8 % 06/14/23 02:11 Eos % (Auto) 0.0 % 06/14/23 02:11 Baso % (Auto) 1.1 % 06/14/23 02:11 Neut # (Auto) 3.20 K/uL (1.40-6.50) 06/14/23 02:11 Lymph # (Auto) 0.55 K/uL (1.20-3.40) L 06/14/23 02:11 [place] # (Auto) 0.72 K/uL (0.11-0.59) H 06/14/23 02:11 Eos # (Auto) 0.00 K/uL (0.00-0.50) 06/14/23 02:11 Baso # (Auto) 0.05 K/uL (0.00-0.20) 06/14/23 02:11 Immature Gran # (Auto) 0.05 K/uL (0.01-0.20) 06/14/23 02:11 Absolute Nucleated RBC 0.11 K/uL (0.00-0.12) 06/15/23 05:46 Nucleated RBC % (auto) 2.5 % 06/15/23 05:46 Polychromasia 1+ 06/13/23 12:17 Anisocytosis Present 06/14/23 02:11 Tear Drop Cells 1+ 06/14/23 02:11 PT 12.1 Seconds (9.0-12.0) H 06/13/23 12:17 INR 1.1 (0.9-1.1) 06/13/23 12:17 APTT 36 Seconds (21-31) H 06/13/23 12:17 PTT Ratio 1.3 06/13/23 12:17 Heparin Anti-Xa, Unfract 0.60 IU/ml (0.3-0.7) 06/15/23 05:46 Sodium 141 mmol/L (136-145) 06/15/23 05:46 Potassium 3.2 mmol/L (3.5-5.1) L 06/15/23 05:46 Chloride 108 mmol/L (98-107) H 06/15/23 05:46 Carbon Dioxide 27 mmol/L (21-32) 06/15/23 05:46 Anion Gap 6 (3-11) 06/15/23 05:46 BUN 5 mg/dl (6-23) L 06/15/23 05:46 Creatinine 0.75 mg/dl (0.6-1.4) 06/15/23 05:46 Est Cr Clr Drug Dosing 97.0 ml/min 06/15/23 05:46 Est GFR ( Amer) 101.1 ml/min 06/15/23 05:46 Est GFR (Non-Af Amer) 87.2 ml/min 06/15/23 05:46 BUN/Creatinine Ratio 6.7 (10-20) L 06/15/23 05:46 Glucose 117 mg/dl (70-99(Fasting)) H 06/15/23 05:46 Lactate 1.9 mmol/L (0.4-2.0) 06/13/23 17:20 Calcium 8.1 mg/dl (8.6-10.3) L 06/15/23 05:46 Magnesium 1.8 mg/dl (1.7-2.4) 06/15/23 05:46 Total Bilirubin 0.7 mg/dl (0.2-1.0) 06/14/23 02:11 AST 12 U/L (13-39) L 06/14/23 02:11 ALT 10 U/L (7-52) 06/14/23 02:11 Alkaline Phosphatase 50 U/L (34-104) 06/14/23 02:11 Troponin I High Sens 262.8 pg/ml (0-20) H* 06/14/23 02:11 B-Natriuretic Peptide 171 pg/ml (0-100) H 06/13/23 14:56 Total Protein 5.3 gm/dl (6.0-8.3) L 06/14/23 02:11 Albumin 3.1 gm/dl (3.4-5.0) L 06/14/23 02:11 Globulin 2.2 gm/dl (2.5-4.0) L 06/14/23 02:11 Albumin/Globulin Ratio 1.4 (0.9-2) 06/14/23 02:11 Lipase 10 U/L (11-82) L 06/13/23 12:17 Impressions Venous Doppler Study 06/13/23 14:10 ULTRASOUND BILATERAL LOWER EXTREMITY VENOUS CLINICAL HISTORY: Pulmonary embolus. COMPARISON STUDY: Bilateral lower extremity venous ultrasound dated 03/22/2023. TECHNIQUE: Real-time, grayscale, and color Doppler sonography of the deep veins of the right and left lower extremity was performed from the inguinal crease to the calf. Compression and augmentation were utilized. FINDINGS: Right lower extremity: There is no sonographic evidence of deep venous thrombosis in the right lower extremity. The common femoral, superficial femoral, and popliteal veins are patent and normally compressible. The greater saphenous vein and the profunda femoris vein at the junction with the common femoral vein are clear. The visualized calf veins are patent. Left lower extremity: There is occlusive deep venous thrombosis identified in the mid to distal popliteal vein. The common femoral and superficial femoral Veins are patent and normally compressible. The greater saphenous vein and the profunda femoris vein at the junction with the common femoral vein are clear. The visualized calf veins are patent. IMPRESSION: 1. Occlusive deep venous thrombosis in the left popliteal vein as above. 2. There is no sonographic evidence of deep venous thrombosis in the right lower extremity. ACT 112: Negative or not required by law. Electronically signed by: Joselo uDbon M.D. 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 Referred to ED 2/2 CTA chest positive for pulmonary embolism Acute pulmonary embolism Acute left lower extremity deep vein thrombosis Acute cor pulmonale Elevated troponin likely demand ischemia, type II [place] Transient hypoxia secondary to above --CTA chest: Extensive bilateral pulmonary emboli. Emphysema and mild cardiomegaly. A paramediastinal spiculated opacity in the anterior left upper lobe has increased in size as compared to 01/26/2023. This likely represents progression of disease. A 1.4 cm spiculated opacity in the right lower lobe is new from previous. Although this could potentially be inflammatory, this also favors progressive metastatic disease. Attention at follow-up is recommended. Additional lesions at the left apex and in the left perihilar region are similar to previous.There is no airspace consolidation typical for pneumonia. Trace left pleural effusion.Bilateral nephrolithiasis. -- Venous Doppler:Occlusive deep venous thrombosis in the left popliteal vein as above. There is no sonographic evidence of deep venous thrombosis in the right lower extremity. --ECHO: Left ventricle ejection fraction 65 to 70%. Moderate concentric LVH. Mild tricuspid regurgitation. Estimated systolic blood pressure is 40 mmHg --Troponin trended down Hypoxia resolved Saturating low 90s on room air Appreciate pulmonology input Discuss with oncology Dr. 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 Needs follow-up as outpatient Anemia of chronic disease H/O recent transfusion Multifactorial in setting of malignancy and recent chemotherapy No obvious bleeding issues Monitor CBC Severe COPD Tobacco use disorder continue with home inhalers, 3xwk azithromycin Pt will need a refill for azithromycin at discharge Hypokalemia Hypomagnesemia Replace and monitor HTN chronic, stable continue home meds Hypothyroidism Continue levothyroxine Psoriatic arthritis On MTX weekly SANGEETA Ativan as needed DVT Px: Eliquis Code Status FULL CODE Disposition Home Total Time Total Time Spent Total Time Spent (In Minutes): 59 minutes Discharge Plan Discharge Items Patient Disposition: Home - Self-Care Reason For Visit: PE Discharge Diagnosis: Acute pulmonary embolism Acute left lower extremity deep vein thrombosis Acute cor pulmonale 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--incidental findings on MRI Hypokalemia Hypomagnesemia Activity: Per Instructions section Exercise/Sports: Wait until after follow-up appointment Non-emergency contact: Primary Care Provider, Specialist and Oncologist Call non-emergency contact if: you have any medication questions, your symptoms worsen, your pain is concerning for you and you have a fever Follow-up/Referrals: Randall King DO [Primary Care Provider] - (Date & Time 06/20/2023 12:00 PM Provider Amina Arboleda PA-C Department [facility] ) Diet: Heart Healthy Addtl Attending Provider Instructions: Follow-up with your primary care physician on 06/20/2023 12:00 PM Follow-up with your oncologist Dr. Brown in 3-4 weeks Consider following with vascular surgery for further evaluation of internal carotid artery aneurysm which was incidentally noted on your MRI. Follow-up with your vocational rehabilitation supervisor in 3 to 4 weeks. --Continue Eliquis (apixaban) 10 mg twice a day for 1 week and then take 5 mg t wice a day. Duration of anticoagulation with Eliquis to be determined by your primary care physician/oncologist. --Use oxygen via nasal cannula 2 L with activity. Seek immediate medical attention if your symptoms reoccur or worsen Please take all medications as instructed on discharge list below. Please call if you have any questions or problems. You can reach a [facility] hospitalist on duty at [facility] 24 hours a day by calling [phone] Pending Studies at Discharge: No Stand-Alone Forms: My [facility], Smoking Cessation Medications and DC Order Prescriptions: New Eliquis 5 mg (74 tabs) tablets,dose pack 5 mg PO UD Qty: 74 1RF Rx Instructions: Start taking Eliquis 10 mg twice a day for 7 days and then take 5 mg twice a day. Mag 64 64 mg Tablet,Delayed Release (Dr/Ec) 64 mg PO BID Qty: 30 0RF potassium chloride 20 mEq Tablet,Er Particles/Crystals 20 meq PO QAM Qty: 7 0RF fluticasone furoate-vilanterol [Breo Ellipta] 100-25 mcg/dose Blister With Device 1 inh inhalation DAILY Qty: 60 0RF Incruse Ellipta 62.5 mcg/actuation Blister With Device 1 inh inhalation DAILY Qty: 30 0RF Continued latanoprost 0.005 % drops 1 drp OPB DAILY Eylea 2 mg/0.05 mL solution 2 mg intravitreal UD Patient Comments: injection every 6 weeks, last dose 12/24/22 folic acid 1 mg tablet 1 mg PO QAM ondansetron HCl 8 mg tablet 8 mg PO Q8H PRN (Reason: Nausea) prochlorperazine maleate [Compazine] 10 mg tablet 10 mg PO Q6H PRN (Reason: Nausea) methotrexate sodium 2.5 mg tablet 12.5 mg PO SA levothyroxine 150 mcg tablet 150 mcg PO [id number] hydrochlorothiazide 12.5 mg tablet 25 mg PO QAM metoprolol tartrate 25 mg tablet 25 mg PO BID lorazepam 0.5 mg tablet 0.5 mg PO TID PRN (Reason: prn) lisinopril 10 mg tablet 10 mg PO BID azithromycin 250 mg tablet 250 mg PO MOWEFR 30 Days Qty: 18 6RF Rx Instructions: Take 1 tablet orally every Tuesday, Tuesday, and Tuesday Trelegy Ellipta 100-62.5-25 mcg blister with device 1 inh inhalation DAILY Rx Instructions: USE 1 INHALATION DAILY levothyroxine 150 mcg Tablet 300 mcg PO CARBAJAL Changed (DME) Oxygen Home [id number] Liters Per Minute See Rx Instructions .ROUTE .MEDSUPPLY Qty: 1 0RF Rx Instructions: 2 L/min with exertion and nightly Discharge Orders: Discharge Order (Routine); Ordered 06/15/23 Ordered By: Collins Chauhan Admission Data Admit Date/Time: 06/13/23 14:17 Attending Provider: Collins Chauhan Admit Provider: Pat Avila Primary Care Provider: Randall King Other Providers: Ronnie Galaviz; Pat Avila
--- NOTE | 2023-06-15 14:45 | Pulmonology Progress Note ---
Date of Service June 15, 2023 Assessment & Plan (1) Acute pulmonary embolism: Acute cor pulmonale presence: unspecified Pulmonary embolism type: unspecified Qualified Code(s): I26.99 - Other pulmonary embolism without acute cor pulmonale (2) Acute deep vein thrombosis of left lower extremity: Affected thrombotic vein of extremity: popliteal Qualified Code(s): I82.432 - Acute embolism and thrombosis of left popliteal vein (3) Hypoxia: (4) Troponin level elevated: (5) Elevated brain natriuretic peptide (BNP) level: (6) COPD (chronic obstructive pulmonary disease): COPD type: emphysema Emphysema type: centrilobular Qualified Code(s): J43.2 - Centrilobular emphysema Plan 78-year-old male with a past medical history of small cell lung cancer, advanced COPD and hypertension who is presenting to the ER via personal vehicle per the request of his outpatient almond paste mixer. He was found to have extensive embolism bilaterally on CT chest and a popliteal vein DVT in the left lower extremity. Patient stable for discharge home with DOAC therapy. Recommend repeating echo in 3-4 months to follow up on cor pulmonale. Continue home ics/laba/lama on discharge. Thank you for the consult. Admission and Anticipated Discharge Date Admission Date: June 13, 2023 Subjective Dyspnea largely resolved. No chest pain. Ready to go home. Review of Systems Review of Systems: All systems reviewed & are unremarkable except as noted in HPI & below Physical Exam Physical Exam: Constitutional: Patient appears to be of their stated age. Patient is in no apparent distress. Patient is well-developed. Eyes: Pupils are equal round and reactive to light. Conjunctivae are normal. Anicteric sclera. Ears nose, mouth and throat: Mallampati class 2. Normal posterior oropharynx. Uvula is midline. Neck: Trachea is midline. Visual inspection is normal. Respiratory: Diffusely diminished. Prolonged phase of exhalation. No wheezes Cardiovascular: Regular rate and rhythm. No murmurs. Bilateral 2+ lower extremity edema, left greater than right. Gastrointestinal: Normal bowel sounds, soft, nontender and nondistended. No hepatosplenomegaly noted. Musculoskeletal: No cyanosis. Patient is able to move all extremities. Strength is 5 out of 5 in the upper and lower extremities. Skin: No rashes, warm dry and intact. Neurologic: No obvious focal neurological deficits seen. Psychiatric: Alert and oriented x3 with a euthymic affect. Results & Data Results & Data Vital Signs (Past 12 Hours) Vital Signs Temp Pulse Pulse Pulse Pulse Pulse Pulse 06/15/23 14:14 36.4 C L 86 06/15/23 13:42 101 H 104 H 101 H 89 06/15/23 11:43 36.4 C L 86 06/15/23 10:40 83 06/15/23 07:21 36.3 C L 92 H 06/15/23 03:25 36.7 C 85 Resp Resp Resp Resp Resp BP Pulse Ox 06/15/23 14:14 16 112/71 95 06/15/23 13:42 17 17 15 15 06/15/23 11:43 16 112/71 95 06/15/23 10:40 06/15/23 07:21 20 129/68 91 06/15/23 03:25 18 124/67 90 Pulse Ox Pulse Ox Pulse Ox Pulse Ox O2 Del Method O2 Flow Rate O2 Flow Rate 06/15/23 14:14 06/15/23 13:42 84 L 92 84 L 94 1 06/15/23 11:43 Room Air 06/15/23 10:40 06/15/23 07:21 Nasal Cannula 2 06/15/23 03:25 Nasal Cannula O2 Flow Rate 06/15/23 14:14 06/15/23 13:42 2 06/15/23 11:43 06/15/23 10:40 06/15/23 07:21 06/15/23 03:25 PG Care Time/CCT Total # of Minutes Spent Total Time Spent with Patient: Total time spent is greater than 50% in coordination of care (as documented) at patient's floor/unit and/or counseling patient: Coding Level of Care Code 82125 SUB INP/OBS CARE 03/10MIN Diagnoses Acute pulmonary embolism, unspecified pulmonary embolism type, unspecified whether acute cor pulmonale present I26.99 Acute cor pulmonale presence: unspecified Pulmonary embolism type: unspecified Acute deep vein thrombosis (DVT) of popliteal vein of left lower extremity I82.432 Affected thrombotic vein of extremity: popliteal Hypoxia R09.02 Troponin level elevated R79.89 Elevated brain natriuretic peptide (BNP) level R79.89 Centrilobular emphysema J43.2 COPD type: emphysema Emphysema type: centrilobular
[2023-06-15] MEDS ORDERED: MAGNESIUM CHLORIDE W/CALCIUM 64MG DELAYED REL TAB PO SCH (21:00)
[2023-06-16] MEDS ORDERED: POTASSIUM CHLORIDE CRTAB 20 MEQ TABCR PO SCH (09:00)
[2023-06-18] MEDS ORDERED: metHOTREXate sodium 2.5 MG TAB PO SCH (09:00)
[2023-06-19] MEDS ORDERED: LEVOTHYROXINE SODIUM 150 MCG TABLET PO SCH (06:30)
== END 2023-06-15 15:31 | disposition home or self-care (01) | DRG 175 ==
LOC: ED 11:56 → EDINP 14:17 → SUATTDRO 14:17 → 2S 15:33

== ENCOUNTER 2023-09-27 08:40 | Inpatient (IN) ==
--- NOTE | 2023-09-27 09:18 | Emergency Department Note ---
Impression & Plan Hypoxia, Small cell carcinoma of left lung, Constipation, Neck pain, Elevated troponin ED Provider Note ED Provider Note NAME: ALEXANDRA ABARCA AGE:78 SEX: Male : 1945 ARRIVES VIA: Private vehicle INFORMANT: Patient, ED PROVIDER(s): Holly Jewell DO CHIEF COMPLAINT: Neck pain, fatigue, constipation, trouble swallowing HPI: This is a 78-year-old male with a recent history of small cell lung cancer treated with chemo and radiation as well as 1 dose of a biologic agent 3 to 4 weeks ago who presents due to concern for worsening neck pain, fatigue, dyspnea with exertion, difficulty swallowing, and constipation. Patient states he has had shoulder and neck pain since receiving radiation treatment. He was given oxycodone to take for this and believes that is likely contributing to his constipation. He states he began feeling worse after he receives a biologic agent with Dr. Brown 3 to 4 weeks ago. He denies fevers or chills but states he always feels hot. He does not wear oxygen at home. He does use MDI/nebulizer treatments at home and does have history of COPD. He states he was told at his last PET scan that his cancer had cleared. He was diagnosed with DVT/PE back in May and does still take Eliquis daily. Patient was recently started on steroids additionally. PAST MEDICAL HISTORY:See Below PAST SURGICAL HISTORY:See Below FAMILY HISTORY:See Below SOCIAL HISTORY:See Below HOME MEDICATIONS:See Below ALLERGIES:See Below VITALS:See Below PHYSICAL EXAMINATION: GENERAL: alert, well appearing, well nourished, no distress, non-toxic EYE EXAM: normal conjunctiva, PERRL and EOM's grossly intact OROPHARYNX: no exudate, no erythema, lips, buccal mucosa, and tongue normal and mucous membranes are moist NECK: supple, no nuchal rigidity, no adenopathy, non-tender LUNGS: Clear but decreased bilaterally to auscultation. Normal chest wall mechanics, no w/r/r; increased work of breathing with pivot and transfer as well as prolonged conversation, patient noted to be 87% on room air initially HEART: no murmurs, S1 normal and S2 normal ABDOMEN: abdomen soft, non-tender, normo-active bowel sounds, no masses, no rebound or guarding. BACK: Back is symmetrical on inspection with significant upper T spine kyphosis, no midline tenderness, no CVA tenderness. SKIN: no rashes, petechiae, orbruising UPPER EXTREMITIES: upper extremities are grossly normal. FROM, nml pulses b/l. LOWER EXTREMITIES: No pitting edema. FROM, nml pulses b/l. NEURO EXAM: Normal sensorium, cranial nerves II-XII grossly intact, normal speech, no facial droop,nogross weakness of arms, no gross weakness of legs. Gross sensation intact. No ataxia. Vital Signs: reviewed and remarkable Differential Diagnosis: Metastatic disease, medication ADR, worsening malignancy, increased clot burden, CHF, COPD exacerbation, dehydration, BIANCA, as well as others were considered MEDICAL DECISION MAKING: This is a 78-year-old male with recent diagnosis of lung cancer who presents emergency department due to concern for increased fatigue, shortness of breath with exertion, constipation, and shoulder/neck pain. Labs drawn and sent, IV established, EKG performed at bedside interpreted by me and patient monitored on telemetry. Patient was noted to be hypoxic with any movement and was placed on oxygen via nasal cannula with improvement. He was started on IV fluids, given IV Tylenol, and Lidoderm patch applied for pain. He was sent for CT of the neck, CT angiography of the chest, and CT of the abdomen and pelvis. Fortunately CTs are suggestive of worsening metastatic disease. No acute bony metastases noted. There was noted interval improvement in the PEs which had been diagnosed in May. Patient also noted to have increased troponin, higher than when he was originally elevated in May when it was thought to be secondary to the PEs. Mild leukocytosis likely secondary to recent initiation of steroids per their report. Constipation noted and likely secondary to use of oxycodone due to shoulder and neck pain. I discussed the results with patient and his at bedside. I discussed the case via [place] text with his oncologist, Dr. Brown. [facility]. Consultation(s): 1158: Discussed with Dr. Brown via [place] text, agrees with plan for inpatient treatment. 1223: Discussed with Maliha Dubon PA-C with [facility] hospitalist team, for additional evaluation and management. ER Treatment Provided: See below Diagnostics Interpreted By Me: -ECG: Normal sinus at 92, normal axis, normal intervals, inverted T waves noted in leads III and aVF, other nonspecific ST/T waves noted -Cardiac Monitoring: An order was placed for continuous cardiac monitoring. The monitor shows a rate of 92 with normal sinus rhythm. -Laboratory studies: As stated above and show below. -Imaging studies: ct chest: no pna, no effusion Triage Nursing Note Reviewed Prior/Outside Records Reviewed Past Med/Surg History Problem List (Updated 09/27/23 @ 17:00 by Holly Jewell, DO) Elevated troponin (Acute) Chronic pulmonary embolism Neck pain (Acute) Constipation (Acute) Hypoxia (Acute) Hypoxia Elevated brain natriuretic peptide (BNP) level Troponin level elevated Acute pulmonary embolism Acute deep vein thrombosis of left lower extremity Anemia (Acute) Hypokalemia (Acute) MOORE (dyspnea on exertion) (Acute) Pulmonary embolism (Acute) Dyspnea Hypoxemia Encounter for pre-operative examination Small cell carcinoma of left lung (Chronic 03/02/23) Lung cancer Lung mass Abnormal CT scan of lung Hamartoma of lung COPD (chronic obstructive pulmonary disease) (Chronic) Hypothyroidism (Chronic) Hypertension (Chronic) Medical History History of pneumothorax 20 years ago Lung cancer chemo 03/24/2023, Cancer Kunia next dose 04/12/23 History of kidney stones passed on own Anxiety Hyperlipemia Psoriatic arthritis Glaucoma Surgical History Port-A-Cath in place (04/07/23) Insertion Access Port Left Chest with Fluoroscopy(Left) - David Hicks MD, FACS History of bronchoscopy 02/18/2023 History of colonoscopy History of surgery on extremity leg History of surgery History of median sternotomy, removal of thymus gland History of cholecystectomy Family History Unknown Hypertension Father Urinary bladder cancer Other No family history of bleeding disorder Social History Smoking Status: Former smoker Tobacco Type: Cigarettes Age Started Using Tobacco: 19; Age Quit Using Tobacco: 68; packs per day: 2; Cigarettes Per Day: 2015; Second Hand Exposure: No; Do You Dip or Chew Tobacco: No; Hx Alcohol Use: No Hx Substance Use: No Preferred Language: Nigerien Communication Ability: Effective Electrical Maintenance Technician Required: No Beliefs That Will Affect Care: None marital status: Current Living Situation: Spouse current occupational status: retired How many Children do You have: 4 Feels Safe at Home: Yes Diet: regular during the past year weight has: remained stable Assistive Devices: Cane and Denture - Upper Allergies Allergies Allergy/AdvReac Type Severity Reaction Status Date / Time adhesive Allergy Mild RASH Verified 09/09/23 10:19 No Known Drug Allergies Allergy Verified 09/09/23 10:19 Home Meds Home Medications Medication Instructions Recorded Confirmed levothyroxine 150 mcg tablet 150 mcg PO DAILY 11/07/18 09/27/23 hydrochlorothiazide 12.5 mg tablet 25 mg PO QAM 11/27/18 09/27/23 metoprolol tartrate 25 mg tablet 25 mg PO BID 11/27/18 09/27/23 aflibercept 2 mg/0.05 mL 2 mg intravitreal UD 03/16/23 09/27/23 intravitreal solution for injection (Eylea) folic acid 1 mg tablet 1 mg PO QAM 03/16/23 09/27/23 latanoprost 0.005 % eye drops 1 drp OPB HS 03/16/23 09/27/23 lisinopril 10 mg tablet 10 mg PO BID 03/16/23 09/27/23 lorazepam 0.5 mg tablet 0.5 mg PO TID PRN prn 03/16/23 09/27/23 methotrexate sodium 2.5 mg tablet 12.5 mg PO SA 03/16/23 09/27/23 fluticasone fur. 100 mcg-umeclid 1 inh inhalation DAILY 03/30/23 09/27/23 62.5 mcg-vilant 25 mcg inhalat.powder (Trelegy Ellipta) apixaban 5 mg (74 tabs) tablets in 5 mg PO BID 09/09/23 09/27/23 a dose pack (Eliquis) acetaminophen 650 mg 650 mg PO Q8H 09/27/23 09/27/23 tablet,extended release oxycodone 5 mg tablet 5 mg PO Q4H PRN Pain 09/27/23 09/27/23 prednisone 10 mg tablet See Taper PO DAILY 09/27/23 09/27/23 Previous Rx's Medication Instructions Recorded azithromycin 250 mg tablet 250 mg PO MOWEFR 30 days #18 tabs 04/14/23 potassium chloride 20 mEq 20 meq PO QAM #7 tabs 06/15/23 tablet,extended release(part/cryst) Results & Data (ED) Vital Signs Vital Signs - 24 hr 09/27/23 08:45 09/27/23 08:55 09/27/23 09:09 Temperature 36.4 C L Temperature Source Temporal Artery Scan Pulse Rate 96 H Pulse Rate [Apical] 88 Pulse Rhythm [Apical] Pulse Strength [Apical] Respiratory Rate 20 16 Respiratory Effort / Characteristics Respiratory Depth Normal Respiratory Pattern Blood Pressure 151/88 H Blood Pressure [Right Arm] Blood Pressure Mean 109 Blood Pressure Mean [Right Arm] Blood Pressure Position [Right Arm] Pulse Oximetry 91 87 L 95 Oxygen Delivery Method Room Air Nasal Cannula Room Air Oxygen Flow Rate 0 Sepsis New/Unexplained Change in Mental Status No Sepsis Action Taken by Nursing No Action Required Oxygen Flow Rate - Titration 3 Pulse Oximetry Post Tiitration 94 09/27/23 09:10 09/27/23 11:53 Temperature Temperature Source Pulse Rate 90 Pulse Rate [Apical] 94 H Pulse Rhythm [Apical] Regular Pulse Strength [Apical] Normal Respiratory Rate 20 Respiratory Effort / Characteristics Non-Labored Spontaneous Respiratory Depth Normal Respiratory Pattern Regular Blood Pressure Blood Pressure [Right Arm] 133/91 Blood Pressure Mean Blood Pressure Mean [Right Arm] 105 Blood Pressure Position [Right Arm] Sitting Pulse Oximetry 97 Oxygen Delivery Method Nasal Cannula Oxygen Flow Rate 3 Sepsis New/Unexplained Change in Mental Status Sepsis Action Taken by Nursing Oxygen Flow Rate - Titration Pulse Oximetry Post Tiitration Laboratory Data 09/27/23 09:10 09/27/23 09:10 Lab Results 09/27/23 Range/Units 09:10 WBC 12.20 H (4.8-10.8) K/ul RBC 6.09 (4.70-6.10) M/uL Hgb 17.5 (14.0-18.0) g/dl Hct 53.6 H (42.0-52.0) % MCV 88.0 (80.0-100.0) fL MCH 28.7 (25.0-34.0) pg MCHC 32.6 (32.0-36.0) g/dL RDW Std Deviation 51.0 H (36.4-46.3) fL RDW Coeff of Cathi 16.5 H (11.5-14.5) % Plt Count 323 (130-400) K/uL MPV 9.9 (9.4-12.4) fL Immature Gran % (Auto) 0.4 % Neut % (Auto) 93.5 % Lymph % (Auto) 3.9 % Millard % (Auto) 2.0 % Eos % (Auto) 0.1 % Baso % (Auto) 0.1 % Neut # (Auto) 11.41 H (1.40-6.50) K/uL Lymph # (Auto) 0.47 L (1.20-3.40) K/uL Millard # (Auto) 0.25 (0.11-0.59) K/uL Eos # (Auto) 0.01 (0.00-0.50) K/uL Baso # (Auto) 0.01 (0.00-0.20) K/uL Immature Gran # (Auto) 0.05 (0.01-0.20) K/uL PT 11.9 (9.0-12.0) Seconds INR 1.1 (0.9-1.1) Sodium 136 (136-145) mmol/L Potassium 3.8 (3.5-5.1) mmol/L Chloride 99 (98-107) mmol/L Carbon Dioxide 29 (21-32) mmol/L Anion Gap 8 (3-11) BUN 16 (6-23) mg/dl Creatinine 0.79 (0.6-1.4) mg/dl Est Cr Clr Drug Dosing Not Reportable Est GFR ( Amer) 99.0 ml/min Est GFR (Non-Af Amer) 85.4 ml/min BUN/Creatinine Ratio 20.3 H (10-20) Glucose 172 H (70-99(Fasting)) mg/dl Calcium 9.8 (8.6-10.3) mg/dl Magnesium 1.9 (1.7-2.4) mg/dl Total Bilirubin 0.9 (0.2-1.0) mg/dl AST 87 H (13-39) U/L ALT 148 H (7-52) U/L Alkaline Phosphatase 83 (34-104) U/L Troponin I High Sens 480.3 H* (0-20) pg/ml Total Protein 7.0 (6.0-8.3) gm/dl Albumin 4.1 (3.4-5.0) gm/dl Globulin 2.9 (2.5-4.0) gm/dl Albumin/Globulin Ratio 1.4 (0.9-2) Lipase 33 (11-82) U/L TSH 0.514 (0.300-4.500) uIu/ml Administered Medications Sodium Chloride (Nss) 1,000 mls @ 125 mls/hr IV .Q8H SHAKIRA Stop: 10/27/23 09:14 Last Admin: 09/27/23 16:17 Dose: 125 mls/hr Documented By: Infusion: 09/27/23 16:17 Dose: Infused Documented By: Admin: 09/27/23 09:55 Dose: 125 mls/hr Documented By: HERNANDEZ Lorazepam (Lorazepam 0.5 Mg Tab) 0.5 mg PO TID PRN PRN Reason: Anxiety Stop: 10/27/23 15:35 Last Admin: 09/27/23 16:17 Dose: 0.5 mg Documented By: KIKI Discontinued Medications Acetaminophen (Ofirmev) 1,000 mg in 100 mls @ 400 mls/hr IV NOW STA Stop: 09/27/23 12:38 Last Infusion: 09/27/23 15:57 Dose: Infused Documented By: Admin: 09/27/23 13:24 Dose: 400 mls/hr Documented By: Ioversol (Optiray 320 125ml) 112 ml IV ONCE ONE Stop: 09/27/23 10:12 Last Admin: 09/27/23 10:11 Dose: 112 ml Documented By: AZAEL Lidocaine (Lidocaine 5% 1 Patch) 1 patch TD NOW STA Stop: 09/27/23 12:25 Last Admin: 09/27/23 13:34 Dose: Not Given Documented By: Magnesium Hydroxide (Magnesium Hydroxide Susp 30 Ml Udc) 30 ml PO NOW ONE Stop: 09/27/23 12:25 Last Admin: 09/27/23 13:24 Dose: 30 ml Documented By: Methylnaltrexone [place] (Methylnaltrexone [place] 12 Mg/0.6 Ml Vial) 12 mg SQ Q2D SHAKIRA Stop: 09/27/23 16:01 Last Admin: 09/27/23 16:47 Dose: 12 mg Documented By: KIKI Oxycodone HCl (Oxycodone Hcl Ir 5 Mg Tab (Immediate Release)) 5 mg PO NOW STA Stop: 09/27/23 12:25 Last Admin: 09/27/23 13:23 Dose: 5 mg Documented By: Imaging Data Radiologist's Impression: Abdomen/Pelvis CT 09/27/23 09:[address] WITH IV CONTRAST CT DOSE: HISTORY: abd pain, constipation TECHNIQUE: Multiaxial CT images of the abdomen and pelvis were performed following the use of intravenous contrast. A dose lowering technique was utilized adhering to the principles of ALARA. COMPARISON STUDY: PET CT 07/07/2023. Abdomen and pelvis CT 04/25/2020. FINDINGS: The lung bases will be reported on the same day chest CTA. No pneumoperitoneum. No pneumatosis. No suspicious lytic or blastic osseous lesions. Multiple hypodense lesions are seen scattered throughout the liver which is new compared the prior studies and is consistent with metastatic disease. Dominant lesion within the right hepatic lobe measures 2.8 cm. Subtle nodular contour to the liver. The main portal vein is patent. Prior cholecystectomy. The pancreas, spleen, and adrenal glands are unremarkable. Bilateral renal cysts are again noted. Bilateral nephrolithiasis. No ureteral stones. No hydronephrosis. Calcified plaque within the normal caliber abdominal aorta. No retroperitoneal or pelvic lymphadenopathy. The bladder is unremarkable. The prostate gland is mildly enlarged. Colonic diverticulosis. No evidence for acute diverticulitis. No bowel wall thickening or obstruction. [id number] fecal retention. Normal appendix. IMPRESSION: 1. Multiple new hepatic lesions consistent with metastatic disease. 2. No bowel wall thickening or obstruction. 3. Colonic diverticulosis. No evidence for acute diverticulitis. 4. Normal appendix. 5. Bilateral nephrolithiasis. No hydronephrosis. 6. Additional findings as described above. ACT 112: Negative or not required by law. Electronically signed by: Kain Ferreira M.D. 09/27/2023 11:[address] 09/27/23 09:09 CT cervical spine wo con CLINICAL HISTORY: 78 years-old Male with neck pain/weakness. Acute neck pain with weakness COMPARISON: PET/CT 07/07/2023 TECHNIQUE: Multiple axial CT images of the cervical spine were obtained without contrast. A dose lowering technique was utilized adhering to the principles of ALARA. FINDINGS: Demineralized appearance of the bones. Multilevel degenerative changes include mild intervertebral disc space narrowing and spondylotic spurring with moderate to severe facet arthrosis. Partially calcified pannus posterior to the dens. Suboptimal evaluation of the central canal and neural foramen by CT technique. Mild levoscoliosis. The cervical soft tissues appear unremarkable. Lungs are better evaluated on same-day CTA chest. Emphysema is partially imaged biapical opacities. IMPRESSION: No acute cervical spine fracture or subluxation identified. ACT 112: Negative or not required by law. The above report was generated using voice recognition software. It may contain grammatical, syntax or spelling errors. Electronically signed by: Eleuterio Rothman M.D. 09/27/2023 11:22 AM Chest CTA 09/27/23 09:09 CHEST CTA for PULMONARY ARTERIES [address] DOSE: 2734.03 mGy.cm HISTORY: hx PE, hx squamous cell lung cancer; incr hypoxia TECHNIQUE: Multiaxial CT images of the chest were performed following the intravenous administration of contrast to evaluate the pulmonary arteries. 3D/Maximal intensity projection images were also obtained. Sagittal and coronal reformations were also reviewed. A dose lowering technique was utilized adhering to the principles of ALARA. COMPARISON STUDY: Chest CTA 06/13/2023. FINDINGS: Calcified plaque within the normal caliber thoracic aorta. No evidence for an aortic dissection. The extensive pulmonary emboli seen on the prior study have almost completely resolved in the interval. There is a persistent filling defect seen within a lingular segmental pulmonary artery best seen on image 117. This is similar to the prior study. This is technically age indeterminate but favors a chronic pulmonary embolus. No additional filling defects within the remaining pulmonary arteries. No evidence for right-sided heart strain. The heart is normal in size. No pleural or pericardial effusions. The abdominal structures will be reported on the same day abdomen and pelvis CT. Normal esophagus. The anterior mediastinal irregular density best seen on image 126 is similar to the prior study and measures approximately 3.3 x 2.1 cm. Otherwise, no mediastinal hilar lymphadenopathy. No suspicious lytic or blastic osseous lesions. No pneumothorax. The central airways are patent. Emphysema again noted. There is 1.8 cm spiculated density within the left lung apex, unchanged. There is a new 9 mm irregular nodule within the left upper lobe on image 159. There is a new 7 mm irregular nodule within the left upper lobe on image 121. 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 Small linear scarlike density within the right lung apex, unchanged. Mild dependent changes seen within the right lung base. Mild nodular thickening along the right minor fissure on image 102 remain stable. This is likely benign. The right lower lobe 14 mm nodule seen on the prior study has resolved in the interval. Stable 5 mm groundglass nodule within the right lower lobe on image 115. Chronic opacification of the lingular bronchus on image 136 again noted. This appears to contain a lobular filling defect on image 131 is therefore concerning for tumor involvement. IMPRESSION: 1. The extensive pulmonary emboli seen on the prior study have almost completely resolved in the interval. There is a persistent filling defect seen within a lingular segmental pulmonary artery which is similar to the prior study. This is technically age indeterminate but favors a chronic pulmonary embolus. 2. Emphysema. 3. No significant change in the 3.3 x 2 x 1 cm anterior mediastinal irregular density. 4. No significant change in the 1.8 cm irregular density within the left lung apex. 5. Persistent opacification of the lingula bronchus which contains a lobular filling defect. This is concerning for tumor involvement. 6. There are 2 new irregular subcentimeter pulmonary nodules within the left upper lobe measure up to 9 mm. These could represent small foci of inflammatory/infectious change. Metastatic disease remains the diagnosis of exclusion. 7. Additional findings as described above. ACT 112: Negative or not required by law. Electronically signed by: Kain Ferreira M.D. 09/27/2023 11:43 AM Discharge Plan Visit Data Chief Complaint: Illness Stated Complaint: CONSTIPATION, BACK AND NECK PAIN ED Provider: Holly Jewell Discharge Problem: Hypoxia, Small cell carcinoma of left lung, Constipation, Neck pain, Elevated troponin Patient Disposition: Admitted As Inpatient Discharge Instructions Interventions: ED Discharge Assessment Last Done: 09/27/23 15:07
[2023-09-27 09:43] LABS: Hematocrit (blood only) 53.6 % (42.0-52.0); Hemoglobin 17.5 g/dl (14.0-18.0); Mean Corpuscular Hemoglobin 28.7 pg (25.0-34.0); Mean Corpuscular Hgb Conc 32.6 g/dL (32.0-36.0); Mean Platelet Volume 9.9 fL (9.4-12.4); Platelet Count 323 K/uL (130-400); RDW Coefficient of Variation 16.5 % (11.5-14.5); Red Blood Count 6.09 M/uL (4.70-6.10)
[2023-09-27] MEDS: SODIUM CHLORIDE 0.9% 1,000 ML IV SCH (09:55)
[2023-09-27 10:00] LABS: Alanine Aminotransferase 148 U/L (7-52); Albumin Globulin Ratio 1.4 (0.9-2); Albumin Level 4.1 gm/dl (3.4-5.0); Alkaline Phosphatase 83 U/L (34-104); Anion Gap 8 (3-11); Aspartate Aminotransferase 87 U/L (13-39); BUN Creatinine Ratio 20.3 (10-20); Bilirubin,Total 0.9 mg/dl (0.2-1.0); Blood Urea Nitrogen 16 mg/dl (6-23); Calcium 9.8 mg/dl (8.6-10.3); Carbon Dioxide 29 mmol/L (21-32); Chloride 99 mmol/L (98-107); Est GFR (Non-African American) 85.4 ml/min; Globulin 2.9 gm/dl (2.5-4.0); Glucose 172 mg/dl (70-99(Fasting)); Lipase 33 U/L (11-82); Magnesium 1.9 mg/dl (1.7-2.4); Potassium 3.8 mmol/L (3.5-5.1); Sodium 136 mmol/L (136-145)
[2023-09-27 10:09] LABS: Basophils # (auto) 0.01 K/uL (0.00-0.20); Basophils % (auto) 0.1 %; Eosinophils # (auto) 0.01 K/uL (0.00-0.50); Eosinophils % (auto) 0.1 %; Immature Granulocytes # (auto) 0.05 K/uL (0.01-0.20); Immature Granulocytes % (auto) 0.4 %; Lymphocytes # (auto) 0.47 K/uL (1.20-3.40); Lymphocytes % (auto) 3.9 %; Monocytes # (auto) 0.25 K/uL (0.11-0.59); Neutrophils # (auto) 11.41 K/uL (1.40-6.50); Neutrophils % (auto) 93.5 %
[2023-09-27 10:11] LABS: INR 1.1 (0.9-1.1); Prothrombin Time 11.9 Seconds (9.0-12.0)
[2023-09-27] MEDS: OPTIRAY 320 125ml IV ONE (10:11)
[2023-09-27 10:13] LABS: Troponin I High Sensitivity 480.3 pg/ml (0-20)
[2023-09-27 10:16] LABS: Thyroid Stimulating Hormone 0.514 uIu/ml (0.300-4.500)
--- NOTE | 2023-09-27 11:00 | Electrocardiogram Report ---
Test Reason : Blood Pressure : */* mmHG Vent. Rate : 92 BPM Atrial Rate : 92 BPM P-R Int : 146 ms QRS Dur : 88 ms QT Int : 368 ms P-R-T Axes : 9 11 -30 degrees QTcB Int : 455 ms Normal sinus rhythm Septal infarct , age undetermined T wave abnormality, consider inferolateral ischemia Abnormal ECG When compared with ECG of 13-Jun-2023 12:17, Significant changes have occurred Confirmed by Evens Clinton ([id number]) on 09/27/2023 10:59:57 AM Referred By: REFERRED SELF Confirmed By: Evens Clinton
--- NOTE | 2023-09-27 11:24 | CT Scan Report ---
CT cervical spine wo con CLINICAL HISTORY: 78 years-old Male with neck pain/weakness. Acute neck pain with weakness COMPARISON: PET/CT 07/07/2023 TECHNIQUE: Multiple axial CT images of the cervical spine were obtained without contrast. A dose low ering technique was utilized adhering to the principles of ALARA. FINDINGS: Demineralized appearance of the bones. Multilevel degenerative changes include mild interve rtebral disc space narrowing and spondylotic spurring with moderate to severe facet arthrosis. Partia lly calcified pannus posterior to the dens. Suboptimal evaluation of the central canal and neural for amen by CT technique. Mild levoscoliosis. The cervical soft tissues appear unremarkable. Lungs are better evaluated on same-day CTA chest. Emp hysema is partially imaged biapical opacities. IMPRESSION: No acute cervical spine fracture or subluxation identified. ACT 112: Negative or not required by law. The above report was generated using voice recognition software. It may contain grammatical, syntax o r spelling errors. Electronically signed by: Eleuterio Rothman M.D. 09/27/2023 11:22 AM
--- NOTE | 2023-09-27 11:30 | CT Scan Report ---
ABDOMEN AND PELVIS CT WITH IV CONTRAST CT DOSE: HISTORY: abd pain, constipation TECHNIQUE: Multiaxial CT images of the abdomen and pelvis were performed following the use of intrave nous contrast. A dose lowering technique was utilized adhering to the principles of ALARA. COMPARISON STUDY: PET CT 07/07/2023. Abdomen and pelvis CT 04/25/2020. FINDINGS: The lung bases will be reported on the same day chest CTA. No pneumoperitoneum. No pneumato sis. No suspicious lytic or blastic osseous lesions. Multiple hypodense lesions are seen scattered th roughout the liver which is new compared the prior studies and is consistent with metastatic disease. Dominant lesion within the right hepatic lobe measures 2.8 cm. Subtle nodular contour to the liver. The main portal vein is patent. Prior cholecystectomy. The pancreas, spleen, and adrenal glands are u nremarkable. Bilateral renal cysts are again noted. Bilateral nephrolithiasis. No ureteral stones. No hydronephrosis. Calcified plaque within the normal caliber abdominal aorta. No retroperitoneal or pe lvic lymphadenopathy. The bladder is unremarkable. The prostate gland is mildly enlarged. Colonic div erticulosis. No evidence for acute diverticulitis. No bowel wall thickening or obstruction. Mild-to-m oderate fecal retention. Normal appendix. IMPRESSION: 1. Multiple new hepatic lesions consistent with metastatic disease. 2. No bowel wall thickening or obstruction. 3. Colonic diverticulosis. No evidence for acute diverticulitis. 4. Normal appendix. 5. Bilateral nephrolithiasis. No hydronephrosis. 6. Additional findings as described above. ACT 112: Negative or not required by law. Electronically signed by: Kain Ferreira M.D. 09/27/2023 11:29 AM
--- NOTE | 2023-09-27 11:45 | CT Scan Report ---
CHEST CTA for PULMONARY ARTERIES CT DOSE: 2734.03 mGy.cm HISTORY: hx PE, hx squamous cell lung cancer; incr hypoxia TECHNIQUE: Multiaxial CT images of the chest were performed following the intravenous administration of contrast to evaluate the pulmonary arteries. 3D/Maximal intensity projection images were also obta ined. Sagittal and coronal reformations were also reviewed. A dose lowering technique was utilized a dhering to the principles of ALARA. COMPARISON STUDY: Chest CTA 06/13/2023. FINDINGS: Calcified plaque within the normal caliber thoracic aorta. No evidence for an aortic dissec tion. The extensive pulmonary emboli seen on the prior study have almost completely resolved in the i nterval. There is a persistent filling defect seen within a lingular segmental pulmonary artery best seen on image 117. This is similar to the prior study. This is technically age indeterminate but favo rs a chronic pulmonary embolus. No additional filling defects within the remaining pulmonary arteries . No evidence for right-sided heart strain. The heart is normal in size. No pleural or pericardial ef fusions. The abdominal structures will be reported on the same day abdomen and pelvis CT. Normal esop hagus. The anterior mediastinal irregular density best seen on image 126 is similar to the prior stud y and measures approximately 3.3 x 2.1 cm. Otherwise, no mediastinal hilar lymphadenopathy. No suspic ious lytic or blastic osseous lesions. No pneumothorax. The central airways are patent. Emphysema aga in noted. There is 1.8 cm spiculated density within the left lung apex, unchanged. There is a new 9 m m irregular nodule within the left upper lobe on image 159. There is a new 7 mm irregular nodule with in the left upper lobe on image 121. 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 S mall linear scarlike density within the right lung apex, unchanged. Mild dependent changes seen withi n the right lung base. Mild nodular thickening along the right minor fissure on image 102 remain stab le. This is likely benign. The right lower lobe 14 mm nodule seen on the prior study has resolved in the interval. Stable 5 mm groundglass nodule within the right lower lobe on image 115. Chronic opacif ication of the lingular bronchus on image 136 again noted. This appears to contain a lobular filling defect on image 131 is therefore concerning for tumor involvement. IMPRESSION: 1. The extensive pulmonary emboli seen on the prior study have almost completely resolved in the inte rval. There is a persistent filling defect seen within a lingular segmental pulmonary artery which is similar to the prior study. This is technically age indeterminate but favors a chronic pulmonary emb olus. 2. Emphysema. 3. No significant change in the 3.3 x 2 x 1 cm anterior mediastinal irregular density. 4. No significant change in the 1.8 cm irregular density within the left lung apex. 5. Persistent opacification of the lingula bronchus which contains a lobular filling defect. This is concerning for tumor involvement. 6. There are 2 new irregular subcentimeter pulmonary nodules within the left upper lobe measure up to 9 mm. These could represent small foci of inflammatory/infectious change. Metastatic disease remains the diagnosis of exclusion. 7. Additional findings as described above. ACT 112: Negative or not required by law. Electronically signed by: Kain Ferreira M.D. 09/27/2023 11:43 AM
[2023-09-27] MEDS: oxyCODONE HCL IR 5 MG TAB (IMMEDIATE RELEASE) PO STA (13:23)
[2023-09-27] MEDS: MAGNESIUM HYDROXIDE SUSP 30 ML UDC PO ONE (13:24)
[2023-09-27] MEDS: ACETAMINOPHEN 1,000 MG/100 ML VIAL IV STA (13:24)
[2023-09-27] MEDS: LIDOCAINE 5% 1 PATCH TD STA (13:34)
--- NOTE | 2023-09-27 13:36 | History & Physical Report ---
Date of Service September 27, 2023 Assessment & Plan (1) Hypoxia: (2) Neck pain: (3) Constipation: (4) Troponin level elevated: (5) Chronic pulmonary embolism: (6) COPD (chronic obstructive pulmonary disease): (7) Small cell carcinoma of left lung: (8) Hypertension: Plan This is a 78 yr old M who has a significant PMH of severe COPD, Small Cell Lung Ca s/p chemoradiation, HTN, hypothyroidism, SANGEETA, hx of tobacco abuse who presents to ED 2/2 Neck pain and SOB x 3 weeks; Constipation x 5 days. Hypoxia Hx of Small Cell Lung Ca -s/p completion of chemoradiation on 05/29 with carboplatin/etopside and radiation, had 1 dose of immunotherapy 3 weeks ago Severe COPD -on trelegy, mwf azithromycin, follows [facility] pulm Elevated troponin Neck/Shoulder pain hypoxia likely multi factorial given above as well as possible progression of cancer --CTA chest: The extensive pulmonary emboli seen on the prior study have almost completely resolved in the interval. There is a persistent filling defect seen within a lingular segmental pulmonary artery which is similar to the prior study. This is technically age indeterminate but favors a chronic pulmonary embolus. 2. Emphysema.3. No significant change in the 3.3 x 2 x 1 cm anterior mediastinal irregular density.4. No significant change in the 1.8 cm irregular density within the left lung apex.5. Persistent opacification of the lingula bronchus which contains a lobular filling defect. This is concerning for tumor involvement.6. There are 2 new irregular subcentimeter pulmonary nodules within the left upper lobe measure up to 9 mm. These could represent small foci of inflammatory/infectious change. Metastatic disease remains the diagnosis of exclusion. -CT neck with mild DDD but no acute change update echo given exertional sx of neck pain/sob, last echo in May preserved EF with elevated PASP cycle troponin, possibly demand due to hypoxia?? suspect he may need oxygen at home given multiple comorbidities consult Onc Dr. Brown due to new hepatic mets and new findings on CT chest uncertain etiology of neck/shoulder pain - it is not reproducible/TTP, ? if hypoxia vs ischemic related? - will continue lidocaine patch, prn oxy, PT/OT for now Opiate induced Constipation trial relistor miralax BID, Senna S BID Recent pulmonary embolism continue eliquis HTN continue lisinopril, hctz, metoprolol Hyperglycemia obtain a1c, likely steroid induced he is currently on steroid taper will hold on insulin until a1c in a.m. SANGEETA/fearfulness (reported by pt) continue prn lorazepam Psoriatic Arthritis continue MTX, pt needs to establish with new Derm as his most recent one retired he will need a refill of MTX at discharge until he can be seen by Dr. King DVT ppx: eliquis Dispo:Tele FULL CODE PCP: Dr. Randall King Pt was seen and examined in collaboration with Dr. Barr, please see addendum A total of 76 minutes was spent coordinating, documenting, and providing care for this patient excluding time spent in the performance of separately billed services. This included personally viewing all current laboratories and imaging studies, medication reconciliation, outpatient chart review, and discussion with specialists. History of Present Illness Chief Complaint: Neck pain and SOB x 3 weeks; Constipation x 5 days. Primary Care Provider: Randall King DO This is a 78 yr old M who has a significant PMH of severe COPD, Small Cell Lung Ca s/p chemoradiation, HTN, hypothyroidism, SANGEETA, tobacco abuse who presents to ED 2/2 Neck pain and SOB x 3 weeks; Constipation x 5 days. His is at bedside who also helps elicit history. He states he recently started immunotherapy 3 weeks ago. He had one dose and had significant side effects including double vision. He also reports shoulder blade pain that has migrated to b/l neck pain at base of skull. This has been on going for three weeks. It is worse when he exerts himself or sits up. It is associated with SOB due to the pain. He only gets relief if he is lying back. He has been taking OTC APAP and Dr. Brown prescribed Oxy. He also recently was started on a prednisone taper.Due to the oxy he has not had a BM in 5 days. He has been trying miralax for this. Overall he feels more fatigued, decreased appetite and lack of oral intake. He denies any fevers although he is hot all the time. He denies chills, sweats, lightheaded, dizziness, chest pain, cough, URI sx, hemoptysis, n/v/d, abd pain. 2 days ago he had bloating. He reports trouble swallowing of water. "It gets stuck." He does not have trouble swallowing food but also doesn't eat much. He denies sick contacts. [facility] records were reviewed. In ED He remained hemodynamically stable although he did become hypoxic with oxygen saturations in the 80s with minimal exertion. He was therefore placed on 2 L of oxygen supplementation. Lab work was notable for an elevated troponin at 480.3 with new T wave inversions inferiorly and V5 and V6. He did not report chest pain. He had mild elevation in AST and ALT at 87 and 148, glucose 172 and WBC at 12.2k. CTA chest revealed resolution of his extensive pulmonary emboli which he sustained in May 2023 although did reveal some lingular segmental filling d efects favoring a chronic PE. Also noted was emphysema, 3.3 x 2 x 1 cm anterior mediastinal irregular density, 1.8 cm irregular density in the left lung apex and 2 new irregular subcentimeter pulmonary nodules in the left upper lobe. CT abdomen pelvis revealed multiple new hepatic lesions consistent with metastatic disease and no other acute finding. He was started on IV fluid, lidocaine patch and received oxycodone. Allergies Allergy/AdvReac Type Severity Reaction Status Date / Time adhesive Allergy Mild RASH Verified 09/09/23 10:19 No Known Drug Allergies Allergy Verified 09/09/23 10:19 Home Medications Medication Instructions Recorded Confirmed Type levothyroxine 150 mcg tablet 150 mcg PO DAILY 11/07/18 09/27/23 History hydrochlorothiazide 12.5 mg tablet 25 mg PO QAM 11/27/18 09/27/23 History metoprolol tartrate 25 mg tablet 25 mg PO BID 11/27/18 09/27/23 History aflibercept 2 mg/0.05 mL 2 mg intravitreal UD 03/16/23 09/27/23 History intravitreal solution for injection (Eylea) folic acid 1 mg tablet 1 mg PO QAM 03/16/23 09/27/23 History latanoprost 0.005 % eye drops 1 drp OPB HS 03/16/23 09/27/23 History lisinopril 10 mg tablet 10 mg PO BID 03/16/23 09/27/23 History lorazepam 0.5 mg tablet 0.5 mg PO TID PRN prn 03/16/23 09/27/23 History methotrexate sodium 2.5 mg tablet 12.5 mg PO SA 03/16/23 09/27/23 History fluticasone fur. 100 mcg-umeclid 1 inh inhalation DAILY 03/30/23 09/27/23 History 62.5 mcg-vilant 25 mcg inhalat.powder (Trelegy Ellipta) azithromycin 250 mg tablet 250 mg PO MOWEFR 30 days #18 tabs 04/14/23 09/27/23 Rx potassium chloride 20 mEq 20 meq PO QAM #7 tabs 06/15/23 09/27/23 Rx tablet,extended release(part/cryst) apixaban 5 mg (74 tabs) tablets in 5 mg PO BID 09/09/23 09/27/23 History a dose pack (Eliquis) acetaminophen 650 mg 650 mg PO Q8H 09/27/23 09/27/23 History tablet,extended release oxycodone 5 mg tablet 5 mg PO Q4H PRN Pain 09/27/23 09/27/23 History prednisone 10 mg tablet See Taper PO DAILY 09/27/23 09/27/23 History Past Med/Surg History Problem List (Updated 09/27/23 @ 17:00 by Holly Jeewll DO) Elevated troponin (Acute) Chronic pulmonary embolism Neck pain (Acute) Constipation (Acute) Hypoxia (Acute) Hypoxia Elevated brain natriuretic peptide (BNP) level Troponin level elevated Acute pulmonary embolism Acute deep vein thrombosis of left lower extremity Anemia (Acute) Hypokalemia (Acute) MOORE (dyspnea on exertion) (Acute) Pulmonary embolism (Acute) Dyspnea Hypoxemia Encounter for pre-operative examination Small cell carcinoma of left lung (Chronic 03/02/23) Lung cancer Lung mass Abnormal CT scan of lung Hamartoma of lung COPD (chronic obstructive pulmonary disease) (Chronic) Hypothyroidism (Chronic) Hypertension (Chronic) Medical History History of pneumothorax 20 years ago Lung cancer chemo 03/24/2023, Cancer [place] next dose 04/12/23 History of kidney stones passed on own Anxiety Hyperlipemia Psoriatic arthritis Glaucoma Surgical History Port-A-Cath in place (04/07/23) Insertion Access Port Left Chest with Fluoroscopy(Left) - David Hicks MD, FACS History of bronchoscopy 02/18/2023 History of colonoscopy History of surgery on extremity leg History of surgery History of median sternotomy, removal of thymus gland History of cholecystectomy Family History Unknown Hypertension Father Urinary bladder cancer Other No family history of bleeding disorder Social History Smoking Status: Former smoker Tobacco Type: Cigarettes Age Started Using Tobacco: 19; Age Quit Using Tobacco: 68; packs per day: 2; Cigarettes Per Day: 2015; Second Hand Exposure: No; Do You Dip or Chew Tobacco: No; Hx Alcohol Use: No Hx Substance Use: No Preferred Language: Sinhala Communication Ability: Effective Registered Dental Assistant Rda Required: No Beliefs That Will Affect Care: None marital status: Current Living Situation: Spouse current occupational status: retired How many Children do You have: 4 Feels Safe at Home: Yes Diet: regular during the past year weight has: remained stable Assistive Devices: Cane and Denture - Upper Review of Systems Review of Systems: All systems reviewed & are unremarkable except as noted in HPI & below Physical Exam Physical Exam: Constitutional: WD/WN, vitals as above, NAD,NISQUALLY, sitting up in bed, pleasant, conversing easily Head: Normocephalic, Atraumatic Eyes: PERRL, conjunctivae normal, anicteric sclerae ENMT: external ear and nose normal, oropharynx normal Neck: trachea midline, no thyromegaly normal visual inspection Respiratory: normal respiratory effort, lungs clear to auscultation, no wheeze, rales, rhonchi. Normal insp/exp effort, no accessory muscle use Cardiovascular: RRR, no murmur, no edema, no rubs Vessels: no JVD or carotid bruit Chest: normal inspection of chest Abdomen: normal bowel sounds, soft, nontender, no hepatosplenomegaly Musculoskeletal: no cyanosis or clubbing, extremities motor strength 5/5 Skin: no rashes, warm and dry normal turgor Neurologic: PERRL, EOMI, accommodation nl, no face palsy, no dysarthria CN's II-XI intact bilaterally and moves all extremities Psychiatric: A+Ox3, dysthymic affect Lymphatic: no cervical or axillary lymphadenopathy : deferred Results & Data Results & Data Vital Signs (Past 12 Hours) Vital Signs Temp Pulse Pulse Resp BP BP Pulse Ox 09/27/23 13:03 97 H 09/27/23 11:53 94 H 20 133/91 97 09/27/23 09:10 90 09/27/23 09:09 88 16 95 09/27/23 08:55 87 L 09/27/23 08:45 36.4 C L 96 H 20 151/88 H 91 O2 Del Method O2 Flow Rate 09/27/23 13:03 09/27/23 11:53 Nasal Cannula 3 09/27/23 09:10 09/27/23 09:09 Room Air 09/27/23 08:55 Nasal Cannula 0 09/27/23 08:45 Room Air Laboratory Results I have independently reviewed and interpreted patient's admitting labs including CBC, CMP, PT/INR, mag, lipase, tsh and troponin. Diagnostic Findings Abdomen/Pelvis CT 09/27/23 09:[address] WITH IV CONTRAST CT DOSE: HISTORY: abd pain, constipation TECHNIQUE: Multiaxial CT images of the abdomen and pelvis were performed following the use of intravenous contrast. A dose lowering technique was utilized adhering to the principles of ALARA. COMPARISON STUDY: PET CT 07/07/2023. Abdomen and pelvis CT 04/25/2020. FINDINGS: The lung bases will be reported on the same day chest CTA. No pneumoperitoneum. No pneumatosis. No suspicious lytic or blastic osseous lesions. Multiple hypodense lesions are seen scattered throughout the liver which is new compared the prior studies and is consistent with metastatic disease. Dominant lesion within the right hepatic lobe measures 2.8 cm. Subtle nodular contour to the liver. The main portal vein is patent. Prior cholecystectomy. The pancreas, spleen, and adrenal glands are unremarkable. Bilateral renal cysts are again noted. Bilateral nephrolithiasis. No ureteral stones. No hydronephrosis. Calcified plaque within the normal caliber abdominal aorta. No retroperitoneal or pelvic lymphadenopathy. The bladder is unremarkable. The prostate gland is mildly enlarged. Colonic diverticulosis. No evidence for acute diverticulitis. No bowel wall thickening or obstruction. [id number] fecal retention. Normal appendix. IMPRESSION: 1. Multiple new hepatic lesions consistent with metastatic disease. 2. No bowel wall thickening or obstruction. 3. Colonic diverticulosis. No evidence for acute diverticulitis. 4. Normal appendix. 5. Bilateral nephrolithiasis. No hydronephrosis. 6. Additional findings as described above. ACT 112: Negative or not required by law. Electronically signed by: Kain Ferreira M.D. 09/27/2023 11:[address] 09/27/23 09:09 CT cervical spine wo con CLINICAL HISTORY: 78 years-old Male with neck pain/weakness. Acute neck pain with weakness COMPARISON: PET/CT 07/07/2023 TECHNIQUE: Multiple axial CT images of the cervical spine were obtained without contrast. A dose lowering technique was utilized adhering to the principles of ALARA. FINDINGS: Demineralized appearance of the bones. Multilevel degenerative changes include mild intervertebral disc space narrowing and spondylotic spurring with moderate to severe facet arthrosis. Partially calcified pannus posterior to the dens. Suboptimal evaluation of the central canal and neural foramen by CT technique. Mild levoscoliosis. The cervical soft tissues appear unremarkable. Lungs are better evaluated on same-day CTA chest. Emphysema is partially imaged biapical opacities. IMPRESSION: No acute cervical spine fracture or subluxation identified. ACT 112: Negative or not required by law. The above report was generated using voice recognition software. It may contain grammatical, syntax or spelling errors. Electronically signed by: Eleuterio Rothman M.D. 09/27/2023 11:22 AM Chest CTA 09/27/23 09:09 CHEST CTA for PULMONARY ARTERIES CT DOSE: 2734.03 mGy.cm HISTORY: hx PE, hx squamous cell lung cancer; incr hypoxia TECHNIQUE: Multiaxial CT images of the chest were performed following the intravenous administration of contrast to evaluate the pulmonary arteries. 3D/Maximal intensity projection images were also obtained. Sagittal and coronal reformations were also reviewed. A dose lowering technique was utilized adhering to the principles of ALARA. COMPARISON STUDY: Chest CTA 06/13/2023. FINDINGS: Calcified plaque within the normal caliber thoracic aorta. No evidence for an aortic dissection. The extensive pulmonary emboli seen on the prior study have almost completely resolved in the interval. There is a persistent filling defect seen within a lingular segmental pulmonary artery best seen on image 117. This is similar to the prior study. This is technically age indeterminate but favors a chronic pulmonary embolus. No additional filling defects within the remaining pulmonary arteries. No evidence for right-sided heart strain. The heart is normal in size. No pleural or pericardial effusions. The abdominal structures will be reported on the same day abdomen and pelvis CT. Normal esophagus. The anterior mediastinal irregular density best seen on image 126 is similar to the prior study and measures approximately 3.3 x 2.1 cm. Otherwise, no mediastinal hilar lymphadenopathy. No suspicious lytic or blastic osseous lesions. No pneumothorax. The central airways are patent. Emphysema again noted. There is 1.8 cm spiculated density within the left lung apex, unchanged. There is a new 9 mm irregular nodule within the left upper lobe on image 159. There is a new 7 mm irregular nodule within the left upper lobe on image 121. 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 Small linear scarlike density within the right lung apex, unchanged. Mild dependent changes seen within the right lung base. Mild nodular thickening along the right minor fissure on image 102 remain stable. This is likely benign. The right lower lobe 14 mm nodule seen on the prior study has resolved in the interval. Stable 5 mm groundglass nodule within the right lower lobe on image 115. Chronic opacification of the lingular bronchus on image 136 again noted. This appears to contain a lobular filling defect on image 131 is therefore concerning for tumor involvement. IMPRESSION: 1. The extensive pulmonary emboli seen on the prior study have almost completely resolved in the interval. There is a persistent filling defect seen within a lingular segmental pulmonary artery which is similar to the prior study. This is technically age indeterminate but favors a chronic pulmonary embolus. 2. Emphysema. 3. No significant change in the 3.3 x 2 x 1 cm anterior mediastinal irregular density. 4. No significant change in the 1.8 cm irregular density within the left lung apex. 5. Persistent opacification of the lingula bronchus which contains a lobular filling defect. This is concerning for tumor involvement. 6. There are 2 new irregular subcentimeter pulmonary nodules within the left upper lobe measure up to 9 mm. These could represent small foci of inflammatory/infectious change. Metastatic disease remains the diagnosis of exclusion. 7. Additional findings as described above. ACT 112: Negative or not required by law. Electronically signed by: Kain Ferreira M.D. 09/27/2023 11:43 AM Medications Administered Medication List Sodium Chloride (Nss) 1,000 mls @ 125 mls/hr IV .Q8H SHAKIRA Stop: 10/27/23 09:14 Last Admin: 09/27/23 09:55 Dose: 125 mls/hr Documented By: KV Discontinued Medications Acetaminophen (Ofirmev) 1,000 mg in 100 mls @ 400 mls/hr IV NOW STA Stop: 09/27/23 12:38 Last Admin: 09/27/23 13:24 Dose: 400 mls/hr Documented By: MSG Ioversol (Optiray 320 125ml) 112 ml IV ONCE ONE Stop: 09/27/23 10:12 Last Admin: 09/27/23 10:11 Dose: 112 ml Documented By: AZAEL Lidocaine (Lidocaine 5% 1 Patch) 1 patch TD NOW STA Stop: 09/27/23 12:25 Last Admin: 09/27/23 13:34 Dose: Not Given Documented By: MSG Magnesium Hydroxide (Magnesium Hydroxide Susp 30 Ml Udc) 30 ml PO NOW ONE Stop: 09/27/23 12:25 Last Admin: 09/27/23 13:24 Dose: 30 ml Documented By: G Oxycodone HCl (Oxycodone Hcl Ir 5 Mg Tab (Immediate Release)) 5 mg PO NOW STA Stop: 09/27/23 12:25 Last Admin: 09/27/23 13:23 Dose: 5 mg Documented By: MSG ECG Additional Comments: I have independently reviewed and interpreted patient's admitting EKG which revealed: NSR, new t wave inversions from may II, III, AVF and v5/v6 and qtc 455ms COVID-19 Results Results COVID-19 Adm Lab Results: RBC 6.09 M/uL (4.70-6.10) 09/27/23 WBC 12.20 K/ul (4.8-10.8) H 09/27/23 Hgb 17.5 g/dl (14.0-18.0) 09/27/23 Hct 53.6 % (42.0-52.0) H 09/27/23 Plt Count 323 K/uL (130-400) 09/27/23 Neutrophils (%) (Auto) 93.5 % 09/27/23 Lymphocytes (%) (Auto) 3.9 % 09/27/23 Monocytes # (Auto) 0.25 K/uL (0.11-0.59) 09/27/23 Eosinophils # (Auto) 0.01 K/uL (0.00-0.50) 09/27/23 Immature Granulocyte % (Auto) 0.4 % 09/27/23 Neutrophils # (Auto) 11.41 K/uL (1.40-6.50) H 09/27/23 Lymphocytes # (Auto) 0.47 K/uL (1.20-3.40) L 09/27/23 Monocytes # (Auto) 0.25 K/uL (0.11-0.59) 09/27/23 Eosinophils # (Auto) 0.01 K/uL (0.00-0.50) 09/27/23 Basophils # (Auto) 0.01 K/uL (0.00-0.20) 09/27/23 Immature Granulocyte # (Auto) 0.05 K/uL (0.01-0.20) 4 Na 136 mmol/L (136-145) 09/27/23 K 3.8 mmol/L (3.5-5.1) 09/27/23 Cl 99 mmol/L (98-107) 09/27/23 CO2 29 mmol/L (21-32) 09/27/23 Anion Gap 8 (3-11) 09/27/23 BUN 16 mg/dl (6-23) 09/27/23 Creatinine 0.79 mg/dl (0.6-1.4) 09/27/23 BUN/Creatinine Ratio 20.3 (10-20) H 09/27/23 Glucose Level 172 mg/dl (70-99(Fasting)) H 09/27/23 Ca 9.8 mg/dl (8.6-10.3) 09/27/23 Total Bilirubin 0.9 mg/dl (0.2-1.0) 09/27/23 AST/SGOT 87 U/L (13-39) H 09/27/23 ALT/SGPT 148 U/L (7-52) H 09/27/23 Alkaline Phosphatase 83 U/L (34-104) 09/27/23 Total Protein 7.0 gm/dl (6.0-8.3) 09/27/23 Albumin 4.1 gm/dl (3.4-5.0) 09/27/23 Globulin 2.9 gm/dl (2.5-4.0) 09/27/23 Albumin/Globulin Ratio 1.4 (0.9-2) 09/27/23 INR 1.1 (0.9-1.1) 09/27/23 Code Status & VTE Plan Code Status FULL CODE VTE Prophylaxis Plan VTE Prophylaxis will be ordered: No Reason for no VTE drug order: Treatment not indicated Supervising Physician Co-Signing Physician Notes Attending Addendum: Case reviewed with the advanced practitioner. I have personally performed a history and physical examination on the patient. I have reviewed the advanced practitioner's documentation on the date of service referenced in note, and I agree with, and take responsibility for the plan of care. please refer to her notes for full details patient seen and examined, records reviewed by myself as well on exam, patient Seen sitting up in bed, comfortable, not in distress, on 2 L of oxygen States he feels comfortable overall, no active shortness of breath while on O2 supplement Denies fevers or chills, cough No nausea vomiting, abdominal pain, etc. no other symptoms VS noted and reviewed oriented x3, not in distress, speaks in sentences with no effort nor accessory muscle use normal rate, regular rhythm, no murmurs clear breath sounds bilaterally non distended, soft, nontender no bipedal edema, erythema, warmth no neuro deficits all labs, imaging noted and reviewed ASSESSMENT AND PLAN Constipation, likely secondary to oxycodone No signs of obstruction on clinical exam and CT imaging Patient declines enema at this point Trial of Relistor, as needed lactulose Hypoxia Multifactorial: Underlying severe COPD, recent acute PE, lung mets No signs of pneumonia clinical exam and imaging at this point Continue O2 supplement Monitor closely for signs of pneumonia other diagnoses and plan of care as per advanced practitioner's notes Dharmesh Barr MD (6) COPD (chronic obstructive pulmonary disease) COPD type: emphysema Emphysema type: centrilobular Qualified Code(s): J43.2 - Centrilobular emphysema
[2023-09-27] MEDS ORDERED: MAGNESIUM HYDROXIDE SUSP 30 ML UDC PO PRN (15:36)
[2023-09-27] MEDS: LORazepam 0.5 MG TAB PO PRN (16:17)
[2023-09-27] MEDS: METHYLNALTREXONE BROMIDE 12 MG/0.6 ML VIAL SQ SCH (16:47)
[2023-09-27] MEDS ORDERED: LORazepam 0.5 MG TAB PO PRN ×2 (17:17)
[2023-09-27] MEDS: oxyCODONE HCL IR 5 MG TAB (IMMEDIATE RELEASE) PO PRN (19:13)
[2023-09-27] MEDS: METOPROLOL TARTRATE 25 MG TAB PO SCH (20:20)
[2023-09-27] MEDS: DOCUSATE SODIUM/SENNA 50/8.6MG TAB PO SCH (20:20)
[2023-09-27] MEDS: lisinopril 10 MG TAB PO SCH (20:20)
[2023-09-27] MEDS: LATANOPROST 0.005% OP SOLN 2.5 ML BTL OPB SCH (20:22)
[2023-09-27] MEDS: POLYETHYLENE (MIRALAX) 17 GM PACK PO SCH (20:24)
[2023-09-27] MEDS: APIXABAN 5 MG TABLET PO SCH (20:54)
[2023-09-27] MEDS: ACETAMINOPHEN 325 MG TAB PO PRN (20:54)
[2023-09-27] MEDS: LORazepam 1 MG TAB PO SCH (20:54)
[2023-09-27] MEDS ORDERED: MELATONIN 3 MG TAB PO PRN (21:00)
[2023-09-28] MEDS: LEVOTHYROXINE SODIUM 150 MCG TABLET PO SCH (05:22)
[2023-09-28 06:36] LABS: Basophils # (auto) 0.01 K/uL (0.00-0.20); Basophils % (auto) 0.1 %; Hematocrit (blood only) 46.3 % (42.0-52.0); Hemoglobin 15.1 g/dl (14.0-18.0); Immature Granulocytes # (auto) 0.07 K/uL (0.01-0.20); Immature Granulocytes % (auto) 0.7 %; Lymphocytes # (auto) 0.82 K/uL (1.20-3.40); Lymphocytes % (auto) 7.6 %; Mean Corpuscular Hemoglobin 29.3 pg (25.0-34.0); Mean Corpuscular Hgb Conc 32.6 g/dL (32.0-36.0); Mean Corpuscular Volume 89.9 fL (80.0-100.0); Mean Platelet Volume 9.6 fL (9.4-12.4); Monocytes # (auto) 1.03 K/uL (0.11-0.59); Monocytes % (auto) 9.6 %; Platelet Count 274 K/uL (130-400); RDW Coefficient of Variation 15.7 % (11.5-14.5); RDW Standard Deviation 51.2 fL (36.4-46.3); Red Blood Count 5.15 M/uL (4.70-6.10); White Blood Count 10.73 K/ul (4.8-10.8)
[2023-09-28 07:03] LABS: Albumin Globulin Ratio 1.5 (0.9-2); Albumin Level 3.3 gm/dl (3.4-5.0); BUN Creatinine Ratio 17.3 (10-20); Bilirubin,Total 0.8 mg/dl (0.2-1.0); Calcium 8.8 mg/dl (8.6-10.3); Creatinine Clr Calc Pharmacy 87.7 ml/min; Est GFR (African American) 101.1 ml/min; Est GFR (Non-African American) 87.2 ml/min; Globulin 2.2 gm/dl (2.5-4.0); Potassium 3.3 mmol/L (3.5-5.1); Total Protein 5.5 gm/dl (6.0-8.3)
[2023-09-28 07:19] LABS: Troponin I High Sensitivity 553.3 pg/ml (0-20)
[2023-09-28] MEDS: LORazepam 0.5 MG TAB PO SCH (08:17)
[2023-09-28] MEDS: hydroCHLOROthiazide 25 MG TAB PO SCH (08:17)
[2023-09-28] MEDS: POTASSIUM CHLORIDE CRTAB 20 MEQ TABCR PO SCH (08:17)
[2023-09-28] MEDS: FOLIC ACID 1 MG TAB PO SCH (08:17)
[2023-09-28] MEDS: FAMOTIDINE 20 MG TAB PO PRN (08:18)
[2023-09-28] MEDS: predniSONE 10 MG TABLET PO SCH (08:18)
[2023-09-28] MEDS: UMECLIDINIUM/VILANTEROL 62.5/25MCG 7 PUFFS/INHALER INH SCH (08:18)
[2023-09-28] MEDS: AZITHROMYCIN 250 MG TAB PO SCH (08:18)
[2023-09-28] MEDS: FLUTICASONE FUROATE 100MCG 14 PUFFS/INHALER INH SCH (08:18)
[2023-09-28] MEDS: ONDANSETRON INJ 2 MG/ML 2 ML VIAL IV PRN (08:29)
[2023-09-28] MEDS ORDERED: NON-FORMULARY MEDICATION (Fluticasone-Umeclidin-Vilanter [Trelegy Ellipta] 100-62.5-25 mcg INH SCH (09:00)
[2023-09-28] MEDS: ATORVASTATIN 20 MG TAB PO SCH (09:19)
[2023-09-28] MEDS: ASPIRIN 81 MG ECTAB PO SCH (09:19)
--- NOTE | 2023-09-28 09:20 | Cardiology Consultation ---
Date of Consultation September 28, 2023 Assessment & Plan (1) Elevated troponin: (2) Hypoxia: (3) Chronic pulmonary embolism: (4) Neck pain: (5) Small cell carcinoma of left lung: (6) COPD (chronic obstructive pulmonary disease): (7) Hypertension: Plan Assessment: 78 year-old patient with complex PMHx that presents for persisent neck pain and dyspnea. Request for cardiology consultation due to elevated troponin during initial work up. Plan: Elevated Troponin: HYpoxia: -In the absence of any acute EKG changes. -Hypoxic on admission, 87% on room air; however, patient has severe COPD and lung cancer, not currently on home supplemental O2. -Echocardiogram demonstrates a hyperdynamic LVEF, no wall motion abnormalities and no significant valvular disease. -Troponin remains a flat trend, not suggestive of a cardiac etiology. -Concern is abnormal CT findings showing new pulmonary nodules and now likely liver involvement which certainly is a contributing factor. -Continue to monitor on telemetry during course of hospitalization. -Continue current medication regimen including Eliquis 5mg BID, HCTZ, Lopressor and Lisinopril. Chronic Pulmonary embolism: -Initially diagnosed in May 2023, likely in the setting of his known lung CA. Repeat CTA chest on admission shows near resolution -Continue Eliquis 5mg PO BID Neck pain: -appears muscular-skeletal in nature by description of symptoms and decreased mobility with evident kyphosis -Atypical in nature for cardiac involvement -Continued management by primary team. Patient is currently on a regimen of Methotreate and Prednisone. Small Cell carcinoma of left lung Severe COPD -Ongoing management by primary team. -Heme/Onc has been consulted due to new nodules noted on chest CTA, and several lesions on the liver. HTN: -Slightly above target this morning -Continue Lopressor 25 Mg twice daily, Lisinopril 10mg Twice daily and HCTZ 25mg daily. If Blood pressures would remains above target, would recommend increasing Lisinopril to 20mg Twice daily (total dose of 40mg over 24 hour period) Case has been discussed with Dr. Smith. Further recommendations regarding plan of care as per his assessment. I spent a total of 40 minutes on the date of service in preparation, delivery, documentation of the care provided to the patient excluding any time spent in the performance of separately billed services. JESÚS Gilliam [facility] Cardiology [facility] Supervising Physician Co-Signing Physician Notes Patient was seen and personally examined. Full assessment and plan as outlined above. Care and management discussed in detail with advanced provider and personally endorsed Patient presented with significant sharp chest neck and back pain. Symptoms not consistent with myocardial ischemia. Symptoms exacerbated by positional movement of his head and shoulders Echocardiogram with moderate left hypertrophy and normal to hyperdynamic LV function, midcavity LV obliteration, increased LV outflow tract velocities with hyperdynamic contractility Plan and recommendations as above Elevated but flat troponin secondary to underlying medical issues No changes made medications other than above continue metoprolol with possible upward titration if blood pressure remains elevated History of Present Illness Reason for Consultation: Hypoxia, elevated troponin Requesting Physician: Keiko melissa Attending Physician: Fran De Los Santos MD History of Present Illness HPI: Patient is a very pleasant 78 year old make with complex PMHx as stated below that presents with 3 week history of neck pain and shortness of breath. Small cell Lung CA s/p completed of chemoradiation 05/30/2023, last dose of immunotherapy 3 weeks ago Severe COPD HTN Hypothyroidism SANGEETA tobacco use History of PE 06/13/2023 EKG on admission 09/27/2023: NSR, Septal infarct age undetermined Rate 92 bpm Repeat EKG today SR with occ PVC, prior septal infarct Rate 76bpm High sensitivity troponin: 480.3/353.9/435.8/553.3 Patient is resting comfortably reclined in bed today. Family also at bedside. patient endorses posterior neck and scapular pain, bilaterally worse with significant position changes. He exhibits Kyphosis at baseline. Denies any chest pain, pressure, palpitations, no shortness of breath outside of baseline, no pre-syncope, syncope or edema. Patient denies any history of cardiac disease. Allergies Allergy/AdvReac Type Severity Reaction Status Date / Time adhesive Allergy Mild RASH Verified 09/09/23 10:19 No Known Drug Allergies Allergy Verified 09/09/23 10:19 Home Medications Medication Instructions Recorded Confirmed Type levothyroxine 150 mcg tablet 150 mcg PO DAILY 11/07/18 09/27/23 History hydrochlorothiazide 12.5 mg tablet 25 mg PO QAM 11/27/18 09/27/23 History metoprolol tartrate 25 mg tablet 25 mg PO BID 11/27/18 09/27/23 History aflibercept 2 mg/0.05 mL 2 mg intravitreal UD 03/16/23 09/27/23 History intravitreal solution for injection (Eylea) folic acid 1 mg tablet 1 mg PO QAM 03/16/23 09/27/23 History latanoprost 0.005 % eye drops 1 drp OPB HS 03/16/23 09/27/23 History lisinopril 10 mg tablet 10 mg PO BID 03/16/23 09/27/23 History lorazepam 0.5 mg tablet 0.5 mg PO TID PRN prn 03/16/23 09/27/23 History methotrexate sodium 2.5 mg tablet 12.5 mg PO SA 03/16/23 09/27/23 History fluticasone fur. 100 mcg-umeclid 1 inh inhalation DAILY 03/30/23 09/27/23 History 62.5 mcg-vilant 25 mcg inhalat.powder (Trelegy Ellipta) azithromycin 250 mg tablet 250 mg PO MOWEFR 30 days #18 tabs 04/14/23 09/27/23 Rx potassium chloride 20 mEq 20 meq PO QAM #7 tabs 06/15/23 09/27/23 Rx tablet,extended release(part/cryst) apixaban 5 mg (74 tabs) tablets in 5 mg PO BID 09/09/23 09/27/23 History a dose pack (Eliquis) acetaminophen 650 mg 650 mg PO Q8H 09/27/23 09/27/23 History tablet,extended release oxycodone 5 mg tablet 5 mg PO Q4H PRN Pain 09/27/23 09/27/23 History prednisone 10 mg tablet See Taper PO DAILY 09/27/23 09/27/23 History Patient History Medical History History of pneumothorax 20 years ago Lung cancer chemo 03/24/2023, Cancer [place] next dose 04/12/23 History of kidney stones passed on own Anxiety Hyperlipemia Psoriatic arthritis Glaucoma Surgical History Port-A-Cath in place (04/07/23) Insertion Access Port Left Chest with Fluoroscopy(Left) - David Hicks MD, FACS History of bronchoscopy 02/18/2023 History of colonoscopy History of surgery on extremity leg History of surgery History of median sternotomy, removal of thymus gland History of cholecystectomy Family History Unknown Hypertension Father Urinary bladder cancer Other No family history of bleeding disorder Social History Smoking Status: Former smoker Tobacco Type: Cigarettes Age Started Using Tobacco: 19; Age Quit Using Tobacco: 68; packs per day: 2; Cigarettes Per Day: 2015; Second Hand Exposure: No; Do You Dip or Chew Tobacco: No; Hx Alcohol Use: No Hx Substance Use: No Preferred Language: British Communication Ability: Effective Hims Clerk Required: No Beliefs That Will Affect Care: None marital status: Current Living Situation: Spouse current occupational status: retired How many Children do You have: 4 Feels Safe at Home: Yes Diet: regular during the past year weight has: remained stable Assistive Devices: Cane Review of Systems Review of Systems: All systems reviewed & are unremarkable except as noted in HPI & below Physical Exam Constitutional: well developed and well nourished; no acute distress Neck: normal visual inspection and trachea midline Respiratory: normal respiratory effort, lungs clear to auscultation Auscultation: no crackles, no rales, no rhonchi and no wheezes Cardiovascular: Rate/Rhythm: regular rate and regular rhythm Heart Sounds: normal S1 and normal S2; no murmur Vessels: dorsalis pedis pulses present; no JVD Extremities: no edema Skin: no rashes, warm and dry Psychiatric: A+Ox3, euthymic affect Results & Data Vital Signs (Past 12 Hours) Vital Signs Temp Pulse Pulse Resp BP BP Pulse Ox 09/28/23 07:54 36.5 C 83 18 161/75 H 90 09/28/23 07:00 75 09/28/23 04:00 36.6 C 82 20 146/74 H 92 09/27/23 23:40 36.5 C 75 20 148/87 H 94 09/27/23 23:00 73 O2 Del Method 09/28/23 07:54 Room Air 09/28/23 07:00 09/28/23 04:00 Room Air 09/27/23 23:40 Room Air 09/27/23 23:00 Laboratory Results Cardiac Enzymes 09/27/23 09/27/23 09/28/23 Range/Units 14:41 20:19 06:10 AST 65 H (13-39) U/L Troponin I High Sens 353.9 H* D 435.8 H* D 553.3 H* D (0-20) pg/ml CBC 09/28/23 Range/Units 06:10 WBC 10.73 (4.8-10.8) K/ul RBC 5.15 (4.70-6.10) M/uL Hgb 15.1 (14.0-18.0) g/dl Hct 46.3 (42.0-52.0) % Plt Count 274 (130-400) K/uL Neut # (Auto) 8.80 H (1.40-6.50) K/uL Lymph # (Auto) 0.82 L (1.20-3.40) K/uL [place] # (Auto) 1.03 H (0.11-0.59) K/uL Eos # (Auto) 0.00 (0.00-0.50) K/uL Baso # (Auto) 0.01 (0.00-0.20) K/uL Comprehensive Metabolic Panel 09/28/23 Range/Units 06:10 Sodium 141 (136-145) mmol/L Potassium 3.3 L (3.5-5.1) mmol/L Chloride 105 (98-107) mmol/L Carbon Dioxide 30 (21-32) mmol/L BUN 13 (6-23) mg/dl Creatinine 0.75 (0.6-1.4) mg/dl Glucose 95 (70-99(Fasting)) mg/dl Calcium 8.8 (8.6-10.3) mg/dl AST 65 H (13-39) U/L ALT 111 H (7-52) U/L Alkaline Phosphatase 68 (34-104) U/L Total Protein 5.5 L D (6.0-8.3) gm/dl Albumin 3.3 L (3.4-5.0) gm/dl Intake and Output 09/27/23 09/28/23 09/28/23 22:59 06:59 14:59 Intake Total 895.833 / 2531.250 1635.417 / 2531.250 1999 Output Total 452 451 / 452 Balance 894.833 / 2079.250 1184.417 / 2079.250 1999 Intake: IV 895.833 / 1831.250 935.417 / 5902.976 6556 / 2000 Acetaminophen 1,000 mg In 100 100 / 100 ml @ 400 mls/hr IV NOW STA Rx#: [id number] Sodium Chloride 0.9% 1,000 ml @ 795.833 / 1731.250 935.417 / 5137.160 9151 / 2000 125 mls/hr IV .Q8H SHAKIRA Rx#: [id number] Oral 700 / 700 Output: Urine 450 / 450 # Bowel Movements / 2 Other: Weight 87 kg 90 kg Weight Measurement Method Standing Scale Built in [facility] Diagnostic Findings Echocardiogram 09/27/2023: LV cavity is small moderate concentric LVH basal septum is thickened and angulated consistent with sigmoid septum LV wall motion is normal LVEF> 70% Grade I diastolic dysfunction No significant valvular disease No findings suggestive of pulmonary HTN Abdomen/Pelvis CT 09/27/23 09:[address] WITH IV CONTRAST CT DOSE: HISTORY: abd pain, constipation TECHNIQUE: Multiaxial CT images of the abdomen and pelvis were performed following the use of intravenous contrast. A dose lowering technique was utilized adhering to the principles of ALARA. COMPARISON STUDY: PET CT 07/07/2023. Abdomen and pelvis CT 04/25/2020. FINDINGS: The lung bases will be reported on the same day chest CTA. No pneumoperitoneum. No pneumatosis. No suspicious lytic or blastic osseous lesions. Multiple hypodense lesions are seen scattered throughout the liver which is new compared the prior studies and is consistent with metastatic disease. Dominant lesion within the right hepatic lobe measures 2.8 cm. Subtle nodular contour to the liver. The main portal vein is patent. Prior cholecystectomy. The pancreas, spleen, and adrenal glands are unremarkable. Bilateral renal cysts are again noted. Bilateral nephrolithiasis. No ureteral stones. No hydronephrosis. Calcified plaque within the normal caliber abdominal aorta. No retroperitoneal or pelvic lymphadenopathy. The bladder is unremarkable. The prostate gland is mildly enlarged. Colonic diverticulosis. No evidence for acute diverticulitis. No bowel wall thickening or obstruction. [id number] fecal retention. Normal appendix. IMPRESSION: 1. Multiple new hepatic lesions consistent with metastatic disease. 2. No bowel wall thickening or obstruction. 3. Colonic diverticulosis. No evidence for acute diverticulitis. 4. Normal appendix. 5. Bilateral nephrolithiasis. No hydronephrosis. 6. Additional findings as described above. ACT 112: Negative or not required by law. CTA chest 09/27/2023: IMPRESSION: 1. The extensive pulmonary emboli seen on the prior study have almost completely resolved in the interval. There is a persistent filling defect seen within a lingular segmental pulmonary artery which is similar to the prior study. This is technically age indeterminate but favors a chronic pulmonary embolus. 2. Emphysema. 3. No significant change in the 3.3 x 2 x 1 cm anterior mediastinal irregular density. 4. No significant change in the 1.8 cm irregular density within the left lung apex. 5. Persistent opacification of the lingula bronchus which contains a lobular bobo ling defect. This is concerning for tumor involvement. 6. There are 2 new irregular subcentimeter pulmonary nodules within the left upper lobe measure up to 9 mm. These could represent small foci of i nflammatory/infectious change. Metastatic disease remains the diagnosis of exclusion. 7. Additional findings as described above. (6) COPD (chronic obstructive pulmonary disease) COPD type: emphysema Emphysema type: centrilobular Qualified Code(s): J43.2 - Centrilobular emphysema
--- NOTE | 2023-09-28 09:22 | Electrocardiogram Report ---
Test Reason : Blood Pressure : */* mmHG Vent. Rate : 76 BPM Atrial Rate : 76 BPM P-R Int : 174 ms QRS Dur : 98 ms QT Int : 412 ms P-R-T Axes : 52 -4 77 degrees QTcB Int : 463 ms Sinus rhythm with occasional Premature ventricular complexes Low voltage QRS Septal infarct (cited on or before 27-Sep-2023) Abnormal ECG When compared with ECG of 27-Sep-2023 09:09, Premature ventricular complexes are now Present Non-specific change in ST segment in Inferior leads ST no longer elevated in Lateral leads T wave inversion no longer evident in Inferior leads Nonspecific T wave abnormality, improved in Anterolateral leads Confirmed by Evens Clinton ([id number]) on 09/28/2023 9:22:10 AM Referred By: REFERRED SELF Confirmed By: Evens Clinton
[2023-09-28] MEDS: DICLOFENAC SOD 1% GEL 100 GM TUBE EXT SCH (11:30)
--- NOTE | 2023-09-28 14:17 | Hospitalist Progress Note ---
Date of Service September 28, 2023 Assessment & Plan (1) Hypoxia: (2) Neck pain: (3) Constipation: (4) Troponin level elevated: (5) Chronic pulmonary embolism: (6) COPD (chronic obstructive pulmonary disease): (7) Small cell carcinoma of left lung: (8) Hypertension: Plan This is a 78 yr old M who has a significant PMH of severe COPD, Small Cell Lung Ca s/p chemoradiation, HTN, hypothyroidism, SANGEETA, hx of tobacco abuse who presents to ED 2/2 Neck pain and SOB x 3 weeks; Constipation x 5 days. Hx of Small Cell Lung Ca -s/p completion of chemoradiation on 05/29 with carboplatin/etopside and radiation, had 1 dose of immunotherapy 3 weeks ago Severe COPD -on trelegy, mwf azithromycin, follows [facility] pulm Elevated troponin Neck/Shoulder pain Patient presents with neck pain and shortness of breath for 3 weeks --CTA chest on admission: The extensive pulmonary emboli seen on the prior study have almost completely resolved in the interval. There is a persistent filling defect seen within a lingular segmental pulmonary artery which is similar to the prior study. This is technically age indeterminate but favors a chronic pulmonary embolus. 2. Emphysema.3. No significant change in the 3.3 x 2 x 1 cm anterior mediastinal irregular density.4. No significant change in the 1.8 cm irregular density within the left lung apex.5. Persistent opacification of the lingula bronchus which contains a lobular filling defect. This is concerning for tumor involvement.6. There are 2 new irregular subcentimeter pulmonary nodules within the left upper lobe measure up to 9 mm. These could represent small foci of inflammatory/infectious change. Metastatic disease remains the diagnosis of exclusion. -CT neck with mild DDD but no acute change High-sensitivity troponin elevated to 480 on admission; up trended to 553. Echocardiogram showed EF of greater than 70% with grade 1 diastolic dysfunction; no significant valvular disease. For neck pain; ordered soft collar, diclofenac gel, pain control and oxycodone. Shortness of breath, likely multifactorial secondary to pain/constipation/lung cancer/COPD; saturating well on room air presently. Will obtain to stay for discharge. Started on aspirin as per recommendation by cardiology. Opiate induced Constipation trial relistor miralax BID, Senna S BID Improved Recent pulmonary embolism continue eliquis HTN continue lisinopril, hctz, metoprolol Hyperglycemia likely steroid induced he is currently on steroid taper Monitor SANGEETA/fearfulness (reported by pt) continue prn lorazepam Psoriatic Arthritis continue MTX, pt needs to establish with new Derm as his most recent one retired he will need a refill of MTX at discharge until he can be seen by Dr. King DVT ppx: eliquis Dispo:Tele FULL CODE PCP: Dr. Randall King Discussed with patient's at bedside. Answered questions/queries Time spent evaluating patient, direct bedside care, chart review, placing orders, interpretation of diagnostic studies, discussion with consultants, patient, and family members, as well as other required patient management activities is 50 minutes Please note the above document was generated using voice recognition software. It may contain grammatical, syntax or spelling errors. Any formal questions or concerns about the content, text or information contained within the body of this dictation should be directly addressed to the provider for clarification Admission and Anticipated Discharge Date Admission Date: September 27, 2023 Subjective Patient seen and examined at bedside along with his . Patient reports that the neck pain has resolved and the shortness of breath has also been improving. No significant events overnight. Review of Systems Review of Systems: All systems reviewed & are unremarkable except as noted in Subjective Physical Exam Physical Exam: Constitutional: WD/WN, vitals as above, NAD,CHIGNIK LAGOON, sitting up in bed, pleasant, conversing easily Respiratory: normal respiratory effort, lungs clear to auscultation, no wheeze, rales, rhonchi. Normal insp/exp effort, no accessory muscle use Cardiovascular: RRR, no murmur, no edema, no rubs Vessels: no JVD or carotid bruit Chest: normal inspection of chest Abdomen: normal bowel sounds, soft, nontender, no hepatosplenomegaly Musculoskeletal: no cyanosis or clubbing, extremities motor strength 5/5 Skin: no rashes, warm and dry normal turgor Neurologic: PERRL, EOMI, accommodation nl, no face palsy, no dysarthria CN's II-XI intact bilaterally and moves all extremities Psychiatric: A+Ox3, dysthymic affect Lymphatic: no cervical or axillary lymphadenopathy : deferred Results & Data Results & Data Vital Signs (Past 12 Hours) Vital Signs Temp Pulse Pulse Resp BP BP Pulse Ox 09/28/23 11:41 37.0 C 83 18 149/88 H 91 09/28/23 08:00 09/28/23 07:54 36.5 C 83 18 161/75 H 90 09/28/23 07:00 75 09/28/23 04:00 36.6 C 82 20 146/74 H 92 O2 Del Method 09/28/23 11:41 Room Air 09/28/23 08:00 Room Air 09/28/23 07:54 Room Air 09/28/23 07:00 09/28/23 04:00 Room Air (6) COPD (chronic obstructive pulmonary disease) COPD type: emphysema Emphysema type: centrilobular Qualified Code(s): J43.2 - Centrilobular emphysema
--- NOTE | 2023-09-28 19:26 | Oncology Consultation ---
Date of Consultation September 28, 2023 Assessment & Plan (1) Small cell carcinoma of left lung: The patient has extensive small cell lung cancer now progressed on concurrent chemoradiation as well as maintenance durvalumab. At this point he will need Of treatment will be which will be started on an outpatient therapy. We are still waiting for his restaging MRI of the brain to see whether he has progressed intracranially or not. Once he is discharged from the hospital I will follow-up in the clinic to start either topotecan or tarlatamab for extensive stage small cell lung cancer. Plan Outpatient follow-up, medical oncology will continue to follow the patient make appropriate recommendations. Thank you for this interesting oncological consult. History of Present Illness Reason for Consultation: small cell lung cancer Attending Physician: Fran De Los Santos MD History of Present Illness Diagnosis: Small cell lung cancer Date of diagnosis: 02/18/2023 Stage: Limited stage small cell lung cancer Carboplatin Etoposide cycle 1 day 1:03/22/2023 Carboplatin and etoposide cycle 2-day 1+ RT: 04/19/2023 Carboplatin etoposide cycle 3-day 1+ RT: 05/17/2023 CT chest, 01/27/2024: Cardiomegaly and emphysema. There is abnormal infiltrative soft tissue identified in the left hilum/suprahilar region as above. This measures up to 6 cm in length, corresponds to the abnormality seen by chest x-ray, and is highly suspicious for bronchogenic neoplasm. Follow-up with pulmonology is recommended. An additional 1.9 cm spiculated opacity seen in the left apex. This is also suspicious for neoplasm. A 2.3 cm similar-appearing suspicious spiculated opacity is seen in the anterior mediastinum. A 1.5 cm ovoid pulmonary nodule in the left lower lobe contains macroscopic fat and likely represents a hamartoma. Attention at follow-up is recommended. Bilateral nephrolithiasis. There is a 2.2 cm partially visualized complex exophytic lesion arising from the interpolar right kidney. A complex cyst is favored. A renal ultrasound is recommended for further assessment and to exclude a solid renal lesion. There is no airspace consolidation typical for pneumonia or pleural effusion. PET CT scan, 03/09/2023: Avid FDG uptake of the branching soft tissue density in the left upper lobe and anterior mediastinal mass. There is a spiculated left upper lobe lesion with some FDG uptake as well. Fiberoptic bronchoscopy, 02/18/2023 1. Exophytic pedunculated necrotic mass occluding the left upper lobe takeoff. Status post endobronchial biopsies 2. Adenopathy identified within the level 7 and level 10 L stations status post biopsy with 21-gauge needle. Path pending CT angiogram chest, 06/13/2023 IMPRESSION: 1. Extensive bilateral pulmonary emboli as above. 2. Emphysema and mild cardiomegaly. 3. A paramediastinal spiculated opacity in the anterior left upper lobe has increased in size as compared to 01/26/2023. This likely represents progression of disease. 4. A 1.4 cm spiculated opacity in the right lower lobe is new from previous. Although this could potentially be inflammatory, this also favors progressive metastatic disease. Attention at follow-up is recommended. 5. Additional lesions at the left apex and in the left perihilar region are similar to previous. 6. There is no airspace consolidation typical for pneumonia. 7. Trace left pleural effusion. 8. Bilateral nephrolithiasis. Brain MRI, 06/10/2023 IMPRESSION: 1. No acute intracranial abnormality. 2. No evidence of intracranial metastasis. 3. Involutional changes with chronic microvascular ischemic disease. 4. 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 PET CT scan 07/07/2023: IMPRESSION: 1. Interval resolution of initial infiltrative left perihilar density, compatible with response to treatment. There is interval development of nodular foci of FDG uptake in the lingula which may represent infectious/inflammatory process or residual/metastatic disease. 2. Stable left upper lobe focus of uptake. CT angiogram chest, 09/27/2023: IMPRESSION: 1. The extensive pulmonary emboli seen on the prior study have almost completely resolved in the interval. There is a persistent filling defect seen within a lingular segmental pulmonary artery which is similar to the prior study. This is technically age indeterminate but favors a chronic pulmonary embolus. 2. Emphysema. 3. No significant change in the 3.3 x 2 x 1 cm anterior mediastinal irregular density. 4. No significant change in the 1.8 cm irregular density within the left lung apex. 5. Persistent opacification of the lingula bronchus which contains a lobular filling defect. This is concerning for tumor involvement. 6. There are 2 new irregular subcentimeter pulmonary nodules within the left upper lobe measure up to 9 mm. These could represent small foci of inflammatory/infectious change. Metastatic disease remains the diagnosis of exclusion. 7. Additional findings as described above. CT cervical spine, 09/27/2023: no acute spine fracture or subluxation identified CT abdomen pelvis, 09/27/2023: 1. Multiple new hepatic lesions consistent with metastatic disease. 2. No bowel wall thickening or obstruction. 3. Colonic diverticulosis. No evidence for acute diverticulitis. 4. Normal appendix. 5. Bilateral nephrolithiasis. No hydronephrosis. 6. Additional findings as described above. the patient is a very pleasant 78-year-old male with a history of small cell lung cancer treated with concurrent chemoradiation who has now progressed came to the hospital with complaints of severe arthralgias. I had previously evaluated him in the clinic and start him on prednisone. Currently the patient is doing well. Reports no fever or chills. Reports nausea vomiting. Appetite is good, the patient is not losing any weight. Reports no growing lumps anywhere. Allergies Allergy/AdvReac Type Severity Reaction Status Date / Time adhesive Allergy Mild RASH Verified 09/09/23 10:19 No Known Drug Allergies Allergy Verified 09/09/23 10:19 Home Medications Medication Instructions Recorded Confirmed Type levothyroxine 150 mcg tablet 150 mcg PO DAILY 11/07/18 09/27/23 History hydrochlorothiazide 12.5 mg tablet 25 mg PO QAM 11/27/18 09/27/23 History metoprolol tartrate 25 mg tablet 25 mg PO BID 11/27/18 09/27/23 History aflibercept 2 mg/0.05 mL 2 mg intravitreal UD 03/16/23 09/27/23 History intravitreal solution for injection (Eylea) folic acid 1 mg tablet 1 mg PO QAM 03/16/23 09/27/23 History latanoprost 0.005 % eye drops 1 drp OPB HS 03/16/23 09/27/23 History lisinopril 10 mg tablet 10 mg PO BID 03/16/23 09/27/23 History lorazepam 0.5 mg tablet 0.5 mg PO TID PRN prn 03/16/23 09/27/23 History methotrexate sodium 2.5 mg tablet 12.5 mg PO SA 03/16/23 09/27/23 History fluticasone fur. 100 mcg-umeclid 1 inh inhalation DAILY 03/30/23 09/27/23 History 62.5 mcg-vilant 25 mcg inhalat.powder (Trelegy Ellipta) azithromycin 250 mg tablet 250 mg PO MOWEFR 30 days #18 tabs 04/14/23 09/27/23 Rx potassium chloride 20 mEq 20 meq PO QAM #7 tabs 06/15/23 09/27/23 Rx tablet,extended release(part/cryst) apixaban 5 mg (74 tabs) tablets in 5 mg PO BID 09/09/23 09/27/23 History a dose pack (Eliquis) acetaminophen 650 mg 650 mg PO Q8H 09/27/23 09/27/23 History tablet,extended release oxycodone 5 mg tablet 5 mg PO Q4H PRN Pain 09/27/23 09/27/23 History prednisone 10 mg tablet See Taper PO DAILY 09/27/23 09/27/23 History Patient History Medical History History of pneumothorax 20 years ago Lung cancer chemo 03/24/2023, Cancer [place] next dose 04/12/23 History of kidney stones passed on own Anxiety Hyperlipemia Psoriatic arthritis Glaucoma Surgical History Port-A-Cath in place (04/07/23) Insertion Access Port Left Chest with Fluoroscopy(Left) - David Hicks MD, FACS History of bronchoscopy 02/18/2023 History of colonoscopy History of surgery on extremity leg History of surgery History of median sternotomy, removal of thymus gland History of cholecystectomy Family History Unknown Hypertension Father Urinary bladder cancer Other No family history of bleeding disorder Social History Smoking Status: Former smoker Tobacco Type: Cigarettes Age Started Using Tobacco: 19; Age Quit Using Tobacco: 68; packs per day: 2; Cigarettes Per Day: 2015; Second Hand Exposure: No; Do You Dip or Chew Tobacco: No; Hx Alcohol Use: No Hx Substance Use: No Preferred Language: Kiswahili Communication Ability: Effective Private Banker Required: No Beliefs That Will Affect Care: None marital status: Current Living Situation: Spouse current occupational status: retired How many Children do You have: 4 Feels Safe at Home: Yes Diet: regular during the past year weight has: remained stable Assistive Devices: Cane Review of Systems Review of Systems: Fatigue, arthritic pain, weight loss Constitutional: + body aches and + weakness Eyes: as per Subjective / HPI Ear, Nose, Mouth, Throat: as per Subjective / HPI Respiratory: as per Subjective / HPI Cardiovascular: as per Subjective / HPI Gastrointestinal: as per Subjective / HPI Genitourinary: + as per Subjective / HPI Musculoskeletal: as per Subjective / HPI Integumentary: as per Subjective / HPI Neurologic: as per Subjective / HPI Psychiatric: as per Subjective / HPI Endocrine: as per Subjective / HPI Hematologic / Lymphatic: as per Subjective / HPI Allergy / Immunological: as per Subjective / HPI Physical Exam Constitutional: WD/WN, vitals as above Eyes: PERRL, conjunctivae normal, anicteric sclerae ENMT: external ear and nose normal, oropharynx normal Neck: trachea midline, no thyromegaly Respiratory: normal respiratory effort, lungs clear to auscultation Cardiovascular: RRR, no murmur, no edema Gastrointestinal (Abdomen): normal bowel sounds, soft, nontender, no hepatosplenomegaly Musculoskeletal: no cyanosis or clubbing, extremities motor strength 5/5 Skin: no rashes, warm and dry Neurologic: patellar DTR's 2+ bilat, sensation intact Psychiatric: A+Ox3, euthymic affect Lymphatic: no cervical or axillary lymphadenopathy Results & Data Vital Signs (Past 12 Hours) Vital Signs Temp Pulse Pulse Resp BP Pulse Ox O2 Del Method 09/28/23 16:05 37.1 C 96 H 18 124/80 90 Room Air 09/28/23 14:00 110 H 09/28/23 11:41 37.0 C 83 18 149/88 H 91 Room Air 09/28/23 08:00 Room Air 09/28/23 07:54 36.5 C 83 18 161/75 H 90 Room Air
[2023-09-29] MEDS: PROMETHAZINE 6.25 MG/50.25 ML BAG IV STA (00:52)
[2023-09-29 06:30] LABS: Basophils # (auto) 0.01 K/uL (0.00-0.20); Basophils % (auto) 0.1 %; Eosinophils # (auto) 0.01 K/uL (0.00-0.50); Eosinophils % (auto) 0.1 %; Hematocrit (blood only) 48.4 % (42.0-52.0); Hemoglobin 15.5 g/dl (14.0-18.0); Immature Granulocytes # (auto) 0.09 K/uL (0.01-0.20); Immature Granulocytes % (auto) 0.8 %; Lymphocytes # (auto) 0.82 K/uL (1.20-3.40); Mean Corpuscular Hemoglobin 29.2 pg (25.0-34.0); Mean Corpuscular Volume 91.3 fL (80.0-100.0); Mean Platelet Volume 9.9 fL (9.4-12.4); Monocytes # (auto) 1.13 K/uL (0.11-0.59); Monocytes % (auto) 9.7 %; Neutrophils # (auto) 9.59 K/uL (1.40-6.50); Neutrophils % (auto) 82.3 %; Platelet Count 288 K/uL (130-400); RDW Standard Deviation 52.4 fL (36.4-46.3); White Blood Count 11.65 K/ul (4.8-10.8)
[2023-09-29 06:47] LABS: BUN Creatinine Ratio 14.1 (10-20); Calcium 9.2 mg/dl (8.6-10.3); Creatinine Clr Calc Pharmacy 84.3 ml/min; Est GFR (African American) 99.5 ml/min; Est GFR (Non-African American) 85.9 ml/min; Potassium 3.7 mmol/L (3.5-5.1)
[2023-09-29 07:31] VITALS: O2SAT 90
[2023-09-29 11:35] VITALS: BP 140/73; PULSE 74; RESP 18; TEMP 99
--- NOTE | 2023-09-29 12:16 | Electrocardiogram Report ---
Test Reason : Blood Pressure : */* mmHG Vent. Rate : 85 BPM Atrial Rate : 85 BPM P-R Int : 176 ms QRS Dur : 104 ms QT Int : 386 ms P-R-T Axes : 70 0 91 degrees QTcB Int : 459 ms Sinus rhythm with occasional Premature atrial complexes Septal infarct (cited on or before 27-Sep-2023) Abnormal ECG When compared with ECG of 28-Sep-2023 05:20, Premature ventricular complexes are no longer Present Confirmed by Evens Clinton ([id number]) on 09/29/2023 12:16:44 PM Referred By: REFERRED SELF Confirmed By: Evens Clinton
--- NOTE | 2023-09-29 15:08 | Discharge Summary ---
Date of Service September 29, 2023 Admission HPI Per Admitting Provider This is a 78 yr old M who has a significant PMH of severe COPD, Small Cell Lung Ca s/p chemoradiation, HTN, hypothyroidism, SANGEETA, tobacco abuse who presents to ED 2/2 Neck pain and SOB x 3 weeks; Constipation x 5 days. His is at bedside who also helps elicit history. He states he recently started immunotherapy 3 weeks ago. He had one dose and had significant side effects including double vision. He also reports shoulder blade pain that has migrated to b/l neck pain at base of skull. This has been on going for three weeks. It is worse when he exerts himself or sits up. It is associated with SOB due to the pain. He only gets relief if he is lying back. He has been taking OTC APAP and Dr. Brown prescribed Oxy. He also recently was started on a prednisone taper.Due to the oxy he has not had a BM in 5 days. He has been trying miralax for this. Overall he feels more fatigued, decreased appetite and lack of oral intake. He denies any fevers although he is hot all the time. He denies chills, sweats, lightheaded, dizziness, chest pain, cough, URI sx, hemoptysis, n/v/d, abd pain. 2 days ago he had bloating. He reports trouble swallowing of water. "It gets stuck." He does not have trouble swallowing food but also doesn't eat much. He denies sick contacts. [facility] and [facility] records were reviewed. In ED He remained hemodynamically stable although he did become hypoxic with oxygen saturations in the 80s with minimal exertion. He was therefore placed on 2 L of oxygen supplementation. Lab work was notable for an elevated troponin at 480.3 with new T wave inversions inferiorly and V5 and V6. He did not report chest pain. He had mild elevation in AST and ALT at 87 and 148, glucose 172 and WBC at 12.2k. CTA chest revealed resolution of his extensive pulmonary emboli which he sustained in May 2023 although did reveal some lingular segmental filling defects favoring a chronic PE. Also noted was emphysema, 3.3 x 2 x 1 cm anterior mediastinal irregular density, 1.8 cm irregular density in the left lung apex and 2 new irregular subcentimeter pulmonary nodules in the left upper lobe. CT abdomen pelvis revealed multiple new hepatic lesions consistent with metastatic disease and no other acute finding. He was started on IV fluid, lidocaine patch and received oxycodone. Admission Exam Per Admitting Provider Constitutional: WD/WN, vitals as above, NAD,SAXMAN, sitting up in bed, pleasant, conversing easily Head: Normocephalic, Atraumatic Eyes: PERRL, conjunctivae normal, anicteric sclerae ENMT: external ear and nose normal, oropharynx normal Neck: trachea midline, no thyromegaly normal visual inspection Respiratory: normal respiratory effort, lungs clear to auscultation, no wheeze, rales, rhonchi. Normal insp/exp effort, no accessory muscle use Cardiovascular: RRR, no murmur, no edema, no rubs Vessels: no JVD or carotid bruit Chest: normal inspection of chest Abdomen: normal bowel sounds, soft, nontender, no hepatosplenomegaly Musculoskeletal: no cyanosis or clubbing, extremities motor strength 5/5 Skin: no rashes, warm and dry normal turgor Neurologic: PERRL, EOMI, accommodation nl, no face palsy, no dysarthria CN's II-XI intact bilaterally and moves all extremities Psychiatric: A+Ox3, dysthymic affect Lymphatic: no cervical or axillary lymphadenopathy : deferred Principal Diagnosis Hx of Small Cell Lung Ca Severe COPD Elevated troponin Neck/Shoulder pain Discharge Exam Constitutional: WD/WN, vitals as above, NAD,SAXMAN, sitting up in bed, pleasant, conversing easily Respiratory: normal respiratory effort, lungs clear to auscultation, no wheeze, rales, rhonchi. Normal insp/exp effort, no accessory muscle use Cardiovascular: RRR, no murmur, no edema, no rubs Vessels: no JVD or carotid bruit Chest: normal inspection of chest Abdomen: normal bowel sounds, soft, nontender, no hepatosplenomegaly Musculoskeletal: no cyanosis or clubbing, extremities motor strength 5/5 Skin: no rashes, warm and dry normal turgor Neurologic: PERRL, EOMI, accommodation nl, no face palsy, no dysarthria CN's II-XI intact bilaterally and moves all extremities Psychiatric: A+Ox3, dysthymic affect Lymphatic: no cervical or axillary lymphadenopathy : deferred Discharge Data Allergies Allergy/AdvReac Type Severity Reaction Status Date / Time adhesive Allergy Mild RASH Verified 09/09/23 10:19 No Known Drug Allergies Allergy Verified 09/09/23 10:19 Consultations 09/27/23 12:23 ED Decision to Admit Stat 09/27/23 12:33 Consult Oncology Routine 09/28/23 07:56 Consult Cardiology Routine Ordered Studies 09/27/23 09:09 CT abd pelvis IV con only Stat CT angio chest PE protocol Stat CT cervical spine wo con Stat Hospital Course (1) Hypoxia: (2) Neck pain: (3) Constipation: (4) Troponin level elevated: (5) Chronic pulmonary embolism: (6) COPD (chronic obstructive pulmonary disease): (7) Small cell carcinoma of left lung: (8) Hypertension: Plan This is a 78 yr old M who has a significant PMH of severe COPD, Small Cell Lung Ca s/p chemoradiation, HTN, hypothyroidism, SANGEETA, hx of tobacco abuse who presents to ED 2/2 Neck pain and SOB x 3 weeks; Constipation x [address] chest with contrast on admission; resolution of PE was seen. Patient was found to have persistent opacification of the lingular bronchus concerning for tumor involvement. He was also found to have 2 new irregular subcentimeter pulmonary nodules within left upper lobe up to [address] abdomen pelvis showed multiple hepatic metastatic disease. Oncology was consulted for comanagement; recommended outpatient follow-up for discussion of treatment options. He also underwent CT cervical spine which did not show any acute fracture/subluxation. He was treated for neck pain with diclofenac gel, oxycodone and soft collar. He reported improvement in the pain at the time of the discharge. Patient was found to have elevated troponin levels. Cardiology was consulted for comanagement. He was started on aspirin. Patient was treated with bowel regimen for constipation. He reported multiple bowel movement throughout the hospitalization. He was recommended to take daily MiraLAX at discharge. 2 step oxygen evaluation was done; patient required 2 L of oxygen on exertion. Please note the above document was generated using voice recognition software. It may contain grammatical, syntax or spelling errors. Any formal questions or concerns about the content, text or information contained within the body of this dictation should be directly addressed to the provider for clarification Total Time Total Time Spent Total Time Spent (In Minutes): 35 Total Time Includes: Examination of the Patient, Discharge Planning, Medication Reconciliation, Communication With Other Providers and Other Discharge Plan Discharge Items Patient Disposition: Home - Self-Care Reason For Visit: hypoxia, elevated troponin Discharge Diagnosis: Hx of Small Cell Lung Ca Severe COPD Elevated troponin Neck/Shoulder pain Activity: Resume your previous activity Non-emergency contact: Primary Care Provider Call non-emergency contact if: you have any medication questions and your symptoms worsen Follow-up/Referrals: Randall King DO [Primary Care Provider] - (Date & Time 10/04/2023 11:00 AM Provider Randall King DO Department [facility] ) Diet: Regular Addtl Attending Provider Instructions: You were admitted to the hospital with neck pain. You underwent CT of the cervical spine which showed age-related changes. Please use neck collar while you are out of bed. You can take oxycodone as needed for pain control. Your evaluated by oncology during the hospitalization; the scans showed progression of the cancer. The oncologist recommended following up with him to discuss further treatment strategy. Your evaluated by cardiology for elevated troponin level. You are prescribed aspirin. Please wear 2 L of oxygen on movement. Use MiraLAX daily. You can hold it if you start to experience diarrhea. Pending Studies at Discharge: No Stand-Alone Forms: My [facility] mon[facility], Smoking Cessation Medications and DC Order Prescriptions: New aspirin 81 mg Tablet,Delayed Release (Dr/Ec) 81 mg PO DAILY Qty: 30 0RF polyethylene glycol 3350 [Miralax] 17 gram Powder In Packet 17 g PO DAILY 30 Days Qty: 30 0RF diclofenac sodium [Voltaren Arthritis Pain] 1 % Gel 2 g EXT Q6 Qty: 100 0RF Continued latanoprost 0.005 % drops 1 drp OPB HS Eylea 2 mg/0.05 mL solution 2 mg intravitreal UD Patient Comments: injection every 6 weeks, last dose 12/24/22 folic acid 1 mg tablet 1 mg PO QAM Eliquis 5 mg (74 tabs) tablets,dose pack 5 mg PO BID Rx Instructions: Start taking Eliquis 10 mg twice a day for 7 days and then take 5 mg twice a day. levothyroxine 150 mcg tablet 150 mcg PO DAILY hydrochlorothiazide 12.5 mg tablet 25 mg PO QAM metoprolol tartrate 25 mg tablet 25 mg PO BID lorazepam 0.5 mg tablet 0.5 mg PO TID PRN (Reason: prn) lisinopril 10 mg tablet 10 mg PO BID azithromycin 250 mg tablet 250 mg PO 30 Days Qty: 18 6RF Rx Instructions: Take 1 tablet orally every Tuesday, Tuesday, and Tuesday prednisone 10 mg tablet See Taper PO DAILY Taper: Taper, Blank 50 mg DAILY for 5 Days 40 mg DAILY for 5 Days 30 mg DAILY for 5 Days 20 mg DAILY for 5 Days 10 mg DAILY for 5 Days Rx Instructions: TITRATE DOWN EVERY 5 DAYS DECREASE 10 MG UNTIL GONE. Started 50 mg for 5 days 09/26 acetaminophen 650 mg Tablet Extended Release 650 mg PO Q8H oxycodone 5 mg tablet 5 mg PO Q4H PRN (Reason: Pain) methotrexate sodium 2.5 mg tablet 12.5 mg PO SA Qty: 90 0RF Trelegy Ellipta 100-62.5-25 mcg blister with device 1 inh inhalation DAILY Rx Instructions: USE 1 INHALATION DAILY potassium chloride 20 mEq Tablet,Er Particles/Crystals 20 meq PO QAM Qty: 7 0RF Discharge Orders: Discharge Order (Routine); Ordered 09/29/23 Ordered By: Fran De Los Santos Admission Data Admit Date/Time: 09/27/23 12:33 Attending Provider: Fran De Los Santos Admit Provider: Dharmesh Barr Primary Care Provider: Randall King Other Providers: Antonio Brown; Dharmesh Barr; Clarissa Harkins; Yimi Burk; Luis Smith; Shane Leung; Jaswant Lopez; Leighton Staples Rebecca K; Marleen Palmer Sowmya; Enciso, Ashley M.; Elpidio Shepherd; Miguel Friedman; Maye Lopez; Caron Boles; Willow Eller; Dileep Ascencio; Brendan Thorne; Michelle Claros Other Interventions: Discharge Summary Assessment (RN) Last Done: 09/29/23 11:55
[2023-10-01] MEDS ORDERED: metHOTREXate sodium 2.5 MG TAB PO SCH (09:00)
== END 2023-09-29 12:41 | disposition home or self-care (01) | DRG 181 ==
LOC: ED 08:40 → SUATTDRO 12:33 → 2W 12:33
DX: J44.9 Chronic obstructive pulmonary disease, unspecified; C78.7 Secondary malignant neoplasm of liver and intrahepatic bile duct; Z79.890 Hormone replacement therapy; R09.02 Hypoxemia; I24.89 Other forms of acute ischemic heart disease; R73.9 Hyperglycemia, unspecified; T40.2X5A Adverse effect of other opioids, initial encounter; C34.92 Malignant neoplasm of unspecified part of left bronchus or lung; Z92.3 Personal history of irradiation; Z86.711 Personal history of pulmonary embolism; Z79.01 Long term (current) use of anticoagulants; Z86.718 Personal history of other venous thrombosis and embolism; Z79.899 Other long term (current) drug therapy; Z91.048 Other nonmedicinal substance allergy status; M54.2 Cervicalgia; F41.1 Generalized anxiety disorder; Z92.21 Personal history of antineoplastic chemotherapy; Z87.891 Personal history of nicotine dependence; I10 Essential (primary) hypertension; E03.9 Hypothyroidism, unspecified; L40.50 Arthropathic psoriasis, unspecified; K59.03 Drug induced constipation; R13.10 Dysphagia, unspecified; Z79.631 Long term (current) use of antimetabolite agent